=== PATIENT | male | born 1960 | race Caucasian/White ===

== ENCOUNTER 2020-07-02 13:11 | Emergency (ER) | payer SELFPAY ==
[2020-07-02] VITALS (16 sets, daily range): BP systolic 99–140; BP diastolic 68–100; PULSE 88–112; RESP 15–20; TEMP 36.6–37.4; O2SAT 99–100
--- NOTE | ~2020-07-02 | CT_ITS ---
EXAMINATION: CT thoracic lumbar wo con DATE: 07/02/2020 14:42 INDICATION: Vertebral body fracture. TECHNIQUE: Computed tomography (CT) of the thoracic and lumbar spine was performed without intravenou s contrast. Automated exposure control and iterative reconstruction technique were employed. The dose -length product was 346.27 mGy-cm. COMPARISON: Chest 2 views 07/02/2020 FINDINGS: CT THORACIC SPINE: There is mild emphysema. There is mucous in right mainstem bronchus. There is 14 d egrees levoscoliosis of thoracic spine. There is kyphosis of thoracic spine. There is 2 mm retrolisth esis of C6 on C7. There is a burst fracture of T7 with 3/5 loss of height. There is a compression fra cture of T9 without significant height loss. There is mild chronic anterior wedging of vertebral body . There is a compression fracture of T12 superior endplate with up to 1/5 loss of height. There is no central canal stenosis. There is multilevel facet joint osteoarthritis, moderate upper thoracic spin e. There is mild neural foraminal stenosis on the right at T3-T4 and on the left at T1-T2, T2-T3, T3- T4, and T4-T5. CT LUMBAR SPINE: There is 6 degrees dextrocurvature of lumbar spine. There is a burst fracture of L2 superior endplate with 1/5 loss of height. Intervertebral disc heights are normal. The following disc levels are specifically discussed: L1-L2: The disc does not extend beyond the endplate margin. There is mild bilateral facet joint osteo arthritis. There is no neural foraminal stenosis. There is no central canal stenosis. L2-L3: The disc is mildly bulging. There is mild bilateral facet joint osteoarthritis. There is mild bilateral neural foraminal stenosis. There is no central canal stenosis. L3-L4: The disc is bulging. There is severe bilateral facet joint osteoarthritis. There is mild bilat eral neural foraminal stenosis. There is mild central canal stenosis. L4-L5: The disc does not extend beyond the endplate margin. There is severe right and moderate left f acet joint osteoarthritis. There is no neural foraminal stenosis. There is no central canal stenosis. L5-S1: The disc does not extend beyond the endplate margin. There is mild bilateral facet joint osteo arthritis. There is no neural foraminal stenosis. There is no central canal stenosis. IMPRESSION: 1. T7 burst fracture, likely subacute. 2. T9 compression fracture, likely acute or subacute. 3. Age-indeterminate T12 compression fracture. 4. L2 burst fracture, likely acute or subacute. 5. Mild thoracic and lumbar spondylosis. 6. Thoracic levoscoliosis and kyphosis. Reviewed, dictated and finalized at location B.
--- NOTE | ~2020-07-02 | CT_ITS ---
EXAMINATION: CT brain wo con DATE: 07/02/2020 13:49 INDICATION: Dizziness. Weakness. TECHNIQUE: Computed tomography (CT) of the head was performed without intravenous contrast. The mA wa s adjusted according to patient size. Iterative reconstruction technique was employed. The dose-lengt h product was 681.00 mGy-cm. COMPARISON: None FINDINGS: There is fluid that is hypodense to barlow matter overlying the cerebral hemispheres bilatera lly measuring up to 5 mm in thickness on both sides, consistent with chronic subdural hematomas. Ther e is no intracranial hemorrhage, acute infarction, or abnormal intracranial mass lesion. There are sc attered areas of low attenuation in the cerebral white matter, which is within normal limits for the patient's age. The ventricles are normal in size. There is mild mucosal thickening in the paranasal s inuses. The orbits are normal. The mastoid air cells are normal. IMPRESSION: 1. Chronic bilateral subdural hematomas. Reviewed, dictated and finalized at location B.
--- NOTE | ~2020-07-02 | XR_ITS ---
EXAMINATION: XR chest 2V DATE: 07/02/2020 13:53 INDICATION: Cough. Weakness. TECHNIQUE: Frontal and lateral views of the chest were obtained. COMPARISON: None. FINDINGS: There is mild scarring at the lung apices. There is mild atelectasis in left lower lung zon e. No pleural effusion or pneumothorax. The heart size is normal. There is a compression fracture of L2. There is a burst fracture of T7. IMPRESSION: 1. Mild atelectasis in left lower lung zone and mild scarring at the lung apices. 2. Age-indeterminate compression fracture of L2 and burst fracture of T7. Reviewed, dictated and finalized at location B. IMPRESSION: 1. Mild atelectasis in left lower lung zone and mild scarring at the lung apice s. 2. Age-indeterminate compression fracture of L2 and burst fracture of T7.
--- NOTE | 2020-07-02 13:17 | ED.DIZZY ---
HPI - Dizziness General Chief Complaint: Dizziness Stated Complaint: dizziness Time Seen by Provider: 07/02/20 13:17 Related Data Allergies Allergy/AdvReac Type Severity Reaction Status Date / Time No Known Allergies Allergy Unverified 11/07/12 12:03
--- NOTE | 2020-07-02 13:23 | ED.DIZZY ---
HPI - Dizziness General Chief Complaint: Dizziness Stated Complaint: dizziness Time Seen by Provider: 07/02/20 13:17 Source: patient Mode of arrival: ambulatory Limitations: no limitations History of Present Illness HPI Narrative: Patient is a 60-year-old male who presents for evaluation of weakness and dizziness with standing. Patient states that he has been falling frequently when he stands up. He reports dizziness only with standing. He denies any current vision changes, dizziness with laying still, headache, nausea or vomiting. Patient denies history of any medical problems. He states that he typically does not eat or drink much. Because of the dizziness he has not been ambulating as much. He does report decreased oral intake. He is on any anticoagulation. Patient has extensive bruising to the bilateral upper extremities which I question him on, patient states he is having mild back pain. Patient states he has been falling daily for many days. Patient reports mild cough without shortness of breath. Denies chest pain. Pt denies history of dark or tarry stools. He denies alcohol use recently. He states he used to drink heavily in the past. Pt states he has not seen a physician in 20 years. Related Data Allergies Allergy/AdvReac Type Severity Reaction Status Date / Time No Known Allergies Allergy Unverified 11/07/12 12:03 Review of Systems Review of Systems: Narrative: CONSTITUTIONAL: Denies fever, chills, or sweats. EYES: Denies visual changes, redness, or discharge. ENT: Denies rhinorrhea, congestion, sore throat, or otalgia. CARDIOVASCULAR: Denies chest pain, palpitations, or edema. RESPIRATORY: Reports mild cough without shortness of breath GASTROINTESTINAL: Denies abdominal pain, nausea, vomiting, or diarrhea. GENITOURINARY: Denies dysuria or hematuria. SKIN: Denies rash or itching. MUSCULOSKELETAL: Reports mild back pain without other joint pain, or myalgia. NEUROLOGIC: Denies headache, numbness, reports feeling diffusely weak PMFSH Social History Social History (Updated 07/02/20 @ 13:35 by Ernestine Torres MD) Smoking status: Current every day smoker Tobacco type: cigarettes Alcohol intake: never Substance use: never Living arrangements: with family Gender identity (if verbalized by the patient): Male Exam Narrative: Exam Narrative: GENERAL: Awake, alert, conversant HEAD: Normocephalic, atraumatic. EYES: PERRLA and EOMI. ENT: Nares clear, no rhinorrhea or epistaxis. Mucous membranes dry NECK: Supple. CHEST: No respiratory distress, breathing even and non labored HEART: Tachycardic rate, sinus rhythm ABDOMEN:Non distended, non tender EXTREMITIES: Normal range of motion. No edema. SKIN: Pale, dry, no rash. NEURO:No focal deficits. Alert and oriented x3. Finger to nose intact bilaterally. EOMs intact without nystagmus. No facial droop/asymmetry noted bilaterally. Grimace intact. Intact sensation in face. Hearing intact bilaterally. Shoulder shrug intact. Strength 5/5 bilateral upper extremities. Strength 5/5 bilateral lower extremities. Reflexes 2+ patellar. Heel to sullivan intact bilaterally. Ambulatory exam deferred. NIHSS 0. Course Vital Signs Vital signs: Vital Signs Temperature 36.8 C 07/02/20 13:17 Pulse Rate 112 H 07/02/20 13:17 Respiratory Rate 15 07/02/20 13:17 Blood Pressure 100/76 07/02/20 13:17 Pulse Oximetry 100 07/02/20 13:17 Temperature 37.1 C 07/02/20 18:45 Pulse Rate 96 07/02/20 18:45 Respiratory Rate 16 07/02/20 18:45 Blood Pressure 121/86 07/02/20 18:45 Pulse Oximetry 100 07/02/20 18:45 MDM - Dizziness MDM Narrative Medical decision making narrative: Patient presented for evaluation of lightheadedness and dizziness with standing. Patient is quite chronically ill-appearing, very thin and dehydrated appearing. No neurological deficits on exam. Patient with extensive, scattered bruising to the bilateral upper extremities. Patient with
[2020-07-02] MEDS: SODIUM CHLORIDE 0.9% IV 1,000 ML 999 ML IV CONT (13:42)
[2020-07-02 14:19] LABS: Basophils Percent Auto 0.3 % (0.2-1.2); Eosinophils Percent Auto 0.1 % (0-4.4); Immature Granulocyte Absolute 0.08 K/mm3 (0.00-0.031); Lymphocytes Absolute Auto 0.44 K/mm3 (0.9-3.2); Lymphocytes Percent Auto 5.6 % (18.3-44.2); Mean Corpuscular Hemoglobin 34.7 pg (26-34); Mean Platelet Volume 9.5 fl (7.4-10.4); Monocytes Absolute Auto 0.5 K/mm3 (0.1-0.6); Monocytes Percent Auto 6.1 % (2.6-8.5); Neutrophils Absolute Auto 6.9 K/mm3 (1.3-6.7); Neutrophils Percent Auto 86.9 % (45.5-73.1); Platelet Count Result 214 k/mm3 (150-375); Red Blood Count 1.96 M/mm3 (4.6-6.20); Red Cell Distribution Width 14.9 % (11.5-14.5); White Blood Count 7.9 K/mm3 (4.5-10.0)
[2020-07-02 14:31] LABS: INR 0.9; Partial Thromboplastin Time 24.8 SECONDS (22.3-36.8); Prothrombin Time 12.5 Seconds (11.1-14.7)
[2020-07-02 14:34] LABS: Hemoglobin 6.8 g/dL (14.0-18.0)
[2020-07-02 14:38] LABS: NT Pro B Type Natriuretic Pept 1260 PG/ML (5-100)
[2020-07-02 14:43] LABS: Alanine Aminotransferase 21 U/L (4-50); Albumin Level 3.5 g/dL (3.5-5.1); Alkaline Phosphatase 102 U/L (38-126); Anion Gap 13 mmol/L (8-16); Aspartate Amino Transferase 41 U/L (17-59); Bilirubin,Total 2.2 mg/dL (0.2-1.3); Blood Urea Nitrogen 25 mg/dL (9-20); Calcium 7.9 mg/dL (8.4-10.2); Carbon Dioxide 25 mmol/L (22-30); Chloride 96 mmol/L (98-107); Estimated CRCL calculation 46 ml/min; Estimated Glomerular Filt Rate > 60; Glucose 97 mg/dL (75-110); Potassium 2.7 mmol/L (3.4-5.0); Sodium 134 mmol/L (137-145)
[2020-07-02] MEDS: THIAMINE HCL INJ 100 MG, FOLIC ACID INJ 1 MG, MULTIVITAMINS-12 INJ VIAL 1 5 ML, MULTIVI... IV CONT (14:47)
--- NOTE | 2020-07-02 15:00 | ECG_ITS ---
Measurements Intervals [place] Rate: 115 P: [place]: 0 QRS: -83 QRSD: 90 T: 90 QT: 322 QTc: 447 Interpretive Statements ATRIAL FIBRILLATION WITH RAPID VENTRICULAR RESPONSE LEFT AXIS DEVIATION NONSPECIFIC ST & T-WAVE ABNORMALITY- ANTEROLAT/HIGH LAT LEADS BASELINE ARTIFACT- I, II, III, AVR, AVL, AVF, V1-V6 ABNORMAL ECG Electronically Signed On 07-03-2020 7:12:08 CDT by Gaetano Calero D.O.
[2020-07-02] MEDS: POTASSIUM CHLORIDE 20 MEQ TABLET 40 MEQ PO (15:08)
--- NOTE | 2020-07-02 15:10 | PC.NURSE ---
Informed blood consent signed by patient with this RN as witness. Consent form placed on patient chart.
[2020-07-02 15:11] LABS: Lactic Acid Reflex 1.5 mmol/L (0.7-2.1)
[2020-07-02 16:50] LABS: Add Urine Microscopic? YES; Appearance Urine Cloudy (Clear); Bacteria Urine Trace /hpf; Bilirubin Urine Negative (Negative); Blood Urine Negative (Negative); Color Urine Amber (Yellow); Glucose Urine UA Negative (Negative); Ketones Urine 1+ mg/dL (Negative); Leukocyte Esterase Ur Negative LEU/UL (Negative); Nitrate Urine Negative (Negative); Protein Urine 1+ mg/dL (Negative); RBC Urine 0-2 /hpf (0-2); Specific Grav Ur 1.019 (1.001-1.035); WBC Urine 0-3 /hpf
--- NOTE | 2020-07-02 17:15 | PC.NURSE ---
Kamari from [facility] called to ask questions in regards to pt, States we do not have a bed at this time, but will call back when we do.
[2020-07-02] MEDS: TUBING, BLOOD PLUM PUMP TUBING 1 EACH XX ×2 (17:33→23:12)
[2020-07-02] MEDS: SODIUM CHLORIDE 0.9% IV 250 ML 30 ML IV CONT ×2 (17:33→23:12)
[2020-07-02 18:29] LABS: HIV 1/2 Ab P24 Ag Result Negative (Negative)
--- NOTE | 2020-07-02 18:50 | PC.NURSE ---
contacted [facility] and [facility] to transfer pt. sal accepted eta [id number]
[2020-07-02 21:45] LABS: Anion Gap 0 mmol/L (8-16); Blood Urea Nitrogen 22 mg/dL (9-20); Calcium 6.6 mg/dL (8.4-10.2); Carbon Dioxide 27 mmol/L (22-30); Chloride 99 mmol/L (98-107); Estimated CRCL calculation 62 ml/min; Estimated Glomerular Filt Rate > 60; Glucose 326 mg/dL (75-110); Potassium 6.8 mmol/L (3.4-5.0); Sodium 126 mmol/L (137-145)
[2020-07-02 21:54] LABS: Troponin I 0.052 ng/mL (0.000-0.034)
[2020-07-02 23:16] LABS: Hematocrit 22.7 % (42.0-52.0); Hemoglobin 7.7 g/dL (14.0-18.0)
[2020-07-02 23:40] LABS: Anion Gap 4 mmol/L (8-16); Blood Urea Nitrogen 24 mg/dL (9-20); Calcium 7.4 mg/dL (8.4-10.2); Carbon Dioxide 27 mmol/L (22-30); Chloride 101 mmol/L (98-107); Estimated CRCL calculation 62 ml/min; Estimated Glomerular Filt Rate > 60; Glucose 124 mg/dL (75-110); Potassium 2.8 mmol/L (3.4-5.0); Sodium 132 mmol/L (137-145)
[2020-07-03 00:55] VITALS: BP 145/104; PULSE 90; RESP 20; TEMP 36.6; O2SAT 100
== END 2020-07-03 02:19 | disposition short-term general hospital (02) ==
PROVIDERS: General Practice; Emergency Provider Emergency Medicine
DX: I62.03 Nontraumatic chronic subdural hemorrhage (principal); S22.061A Stable burst fracture of T7-T8 vertebra, initial encounter for closed fracture; S22.078A Other fracture of T9-T10 vertebra, initial encounter for closed fracture; S32.021A Stable burst fracture of second lumbar vertebra, initial encounter for closed fracture; D64.89 Other specified anemias; F17.210 Nicotine dependence, cigarettes, uncomplicated; M47.814 Spondylosis without myelopathy or radiculopathy, thoracic region; M47.816 Spondylosis without myelopathy or radiculopathy, lumbar region; E87.6 Hypokalemia; W18.39XA Other fall on same level, initial encounter
CPT/HCPCS: 36415; 36430; 70450; 71046; 72128; 72131; 80048; 80053; 81001; 83605; 83880; 84443; 84484; 85014; 85018; 85025; 85610; 85730; 86703; 86850; 86900; 86901; 86923; 87040; 93005; 96361; 96365; 96366; 96367; 99291; A9270; G0432; J3411; J3475; J3480; J7030; J7050; J7121; P9016

== ENCOUNTER 2021-12-06 20:56 | Inpatient (IN) | payer OTHER, SELFPAY ==
[2021-12-06] VITALS (17 sets, daily range): BP systolic 93–148; BP diastolic 70–132; PULSE 83–103; RESP 14–22; TEMP 36.2; O2SAT 100
--- NOTE | ~2021-12-06 | XR_ITS ---
EXAMINATION: XR chest PICC line DATE: 12/10/2021 11:47 INDICATION: Central line placement. TECHNIQUE: A single frontal view of the chest was obtained. COMPARISON: Chest single view at 4:11 AM FINDINGS: The patient is rotated to his right. There are moderate-sized pleural effusions. There are airspace opacities in all right lung zones and in left mid and lower lung zones with a perihilar and basilar predominance. No pneumothorax. The heart size is normal. A left upper extremity peripherally inserted central venous catheter (PICC) is seen with tip at the superior cavoatrial junction. IMPRESSION: 1. PICC tip at superior cavoatrial junction. 2. Stable moderate-sized pleural effusions. 3. Stable diffuse lung disease, consistent with pulmonary edema versus pneumonia. Reviewed, dictated and finalized at location A. IMPRESSION: 1. PICC tip at superior cavoatrial junction. 2. Stable moderate-sized pleural effusions. 3. Stable diffuse lung disease, consistent with pulmonary edema versus pneumoni a.
--- NOTE | ~2021-12-06 | XR_ITS ---
EXAMINATION: XR chest 1V portable DATE: 12/18/2021 05:47 INDICATION: Acute respiratory failure. Pneumonia. TECHNIQUE: frontal view of the chest was obtained. COMPARISON: Chest radiograph dated 12/17/2021 FINDINGS: Endotracheal tube tip 1.3 cm above the kimi. Nasogastric tube tip in proximal side port in the body of the stomach. Left upper extremity peripherally inserted central venous catheter (PICC) tip at th e cephalad superior vena cava. No significant change in diffuse bilateral airspace opacity sparing the apices which is consistent wi th small bilateral pleural effusions and superimposed pulmonary edema, pneumonia, ARDS or some combin ation thereof. The cardiomediastinal silhouette is normal. Visualized bones and soft tissues are unre markable. IMPRESSION: 1. Unchanged bilateral lung disease consistent with pulmonary edema, pneumonia, ARDS or some combinat ion thereof. 2. Small bilateral pleural effusions. Reviewed, dictated and finalized at location A. IMPRESSION: 1. Unchanged bilateral lung disease consistent with pulmonary edema, pneumonia, ARDS or some combination thereof. 2. Small bilateral pleural effusions.
--- NOTE | ~2021-12-06 | CT_ITS ---
EXAMINATION: CT brain wo con DATE: 12/17/2021 10:54 INDICATION: Altered mental status. TECHNIQUE: Computed tomography (CT) of the head was performed without intravenous contrast. The mA wa s adjusted according to patient size. Iterative reconstruction technique was employed. The dose-lengt h product was 681.00 mGy-cm. COMPARISON: Head CT 12/06/2021 FINDINGS: There are scattered areas of low attenuation in the cerebral white matter. There is no intr acranial hemorrhage, acute infarction, or abnormal intracranial mass lesion. The ventricles are jean l in size. The orbits are normal. There is mucosal thickening in the paranasal sinuses. There are sma ll bilateral mastoid effusions. IMPRESSION: 1. Stable moderate nonspecific cerebral white matter disease, which likely represents chronic small v essel ischemic disease. Reviewed, dictated and finalized at location B. IMPRESSION: 1. Stable moderate nonspecific cerebral white matter disease, which likely repr esents chronic small vessel ischemic disease.
--- NOTE | ~2021-12-06 | CT_ITS ---
EXAMINATION: CT chest abdomen pelvis wo con DATE: 12/17/2021 10:54 INDICATION: Shortness of breath. Epigastric abdominal pain. TECHNIQUE: Computed tomography (CT) of the chest, abdomen, and pelvis was performed without intraveno us contrast. Automated exposure control and iterative reconstruction technique were employed. The dos e-length product was 542.37 mGy-cm. COMPARISON: CT chest, abdomen, and pelvis 12/13/2021 FINDINGS: CHEST CT: There is mild emphysema. There are moderate-sized pleural effusions. There is dependent atelectasis b ilaterally. There are diffuse airspace and groundglass opacities with areas of septal thickening in t he lungs bilaterally. The endotracheal tube tip is in expected position above the kimi. The nasogas tric tube tip is in the stomach. The heart size is normal. There is a small pericardial effusion. The re are coronary artery calcifications. A left upper extremity peripherally inserted central venous ca theter (PICC) is seen with tip in the superior vena cava. There are bridging endplate osteophytes at multiple levels in the spine, consistent with diffuse idiopathic skeletal hyperostosis (DISH). There are chronic compression fractures of T7, T11, and T12. ABDOMEN/PELVIS CT: There is diffuse hepatic steatosis. There is contrast in the gallbladder, which is normal in size. Th ere is fat stranding around the pancreas, consistent with acute interstitial pancreatitis. The spleen , adrenal glands, and kidneys are normal. The bladder is decompressed by a Marks catheter. There are no dilated loops of bowel. The appendix is not well visualized. There is a small volume of ascites. T here are no pathologically enlarged lymph nodes. There is a chronic compression fracture of L2. IMPRESSION: 1. Stable diffuse lung disease, consistent with pulmonary edema versus pneumonia versus acute respira tory distress syndrome (ARDS). 2. Stable moderate-sized pleural effusions. 3. Worsened small volume of ascites. 4. Stable acute interstitial pancreatitis. Reviewed, dictated and finalized at location B. IMPRESSION: 1. Stable diffuse lung disease, consistent with pulmonary edema versus pneumoni a versus acute respiratory distress syndrome (ARDS). 2. Stable moderate-sized pleural effusions. 3. Worsened small volume of ascites. 4. Stable acute interstitial pancreatitis.
--- NOTE | ~2021-12-06 | US_ITS ---
EXAMINATION: US abdomen limited DATE: 12/13/2021 13:31 INDICATION: Pancreatitis, elevated bilirubin TECHNIQUE: Multiple grayscale and Doppler ultrasound images of the abdomen were obtained. COMPARISON: 12/08/2021 FINDINGS: The head and body of the pancreas are normal. The pancreatic tail is obscured by bowel gas. The liver demonstrates increased echogenicity, heterogenous echotexture, and decreased through trans mission. No surface nodularity. Normal hepatopetal flow in the main portal vein. The gallbladder is c ontracted. No gallstones are identified. The normal common bile duct measures 3 mm. There was no sono graphic Mishra sign. IMPRESSION: 1. Diffuse hepatic steatosis. Reviewed, dictated and finalized at location A.
--- NOTE | ~2021-12-06 | XR_ITS ---
EXAMINATION: XR chest 1V portable DATE: 12/10/2021 19:14 INDICATION: Decreased level of consciousness TECHNIQUE: frontal view of the chest was obtained. COMPARISON: Chest radiograph dated 12/10/2021 FINDINGS: Gradient of dependent predominant opacities in the bilateral mid and lower lung zones consistent with posterior layering moderate-sized pleural effusions with associated atelectasis and/or pneumonia. No pneumothorax. The cardiomediastinal silhouette is normal. Left upper extremity peripherally inserted central venous catheter (PICC) tip at the mid superior vena cava. IMPRESSION: 1. Unchanged moderate size bilateral pleural effusions with associated atelectasis an/or pneumonia. Reviewed, dictated and finalized at location A. IMPRESSION: 1. Unchanged moderate size bilateral pleural effusions with associated atelecta sis an/or pneumonia.
--- NOTE | ~2021-12-06 | US_ITS ---
US abdomen limited INDICATION: Pancreatitis. PROCEDURE: Realtime right upper abdominal ultrasound. COMPARISON: CT dated 12/06/2021 FINDINGS: Liver echotexture is increased, consistent with fatty infiltration. Liver echotexture is n ormal without focal mass or intrahepatic biliary dilatation. There is normal directional flow in the portal vein. There is gallbladder sludge. Possible mild gallbladder wall thickening. There is a small amount of as cites. Common bile duct measures 5 mm. No sonographic Mishra's sign. IMPRESSION: 1: Gallbladder sludge with mild gallbladder wall thickening. 2: Ascites. 3: Hepatic steatosis. Reviewed, dictated and finalized at location A.
--- NOTE | ~2021-12-06 | US_ITS ---
EXAMINATION: US thoracentesis DATE: 12/18/2021 16:46 INDICATION: pleural effusion TECHNIQUE: The procedure and its risks, benefits, and alternatives were discussed with the patient's son, who provided consent. The skin was prepped and draped in sterile fashion. 1% lidocaine was used for local anesthesia. Under ultrasound guidance, a 5 Fr catheter with trochar was advanced into the r ight pleural effusion. Fluid was aspirated. The catheter was removed, and a dressing was applied. The re were no immediate complications. FINDINGS: Ultrasound images demonstrate a right pleural effusion and the catheter within the fluid. IMPRESSION: 1. Successful ultrasound-guided thoracentesis yielding 620 mL of lev-colored fluid. Reviewed, dictated and finalized at location A.
--- NOTE | ~2021-12-06 | XR_ITS ---
EXAMINATION: XR chest 1V portable DATE: 12/09/2021 03:55 INDICATION: Shortness of breath. TECHNIQUE: A single frontal view of the chest was obtained. COMPARISON: Chest single view 12/06/2021, CT abdomen and pelvis 12/06/2021 FINDINGS: There are small pleural effusions. There are airspace and interstitial opacities in the mid and lower lung zones. No pneumothorax. The heart size is normal. IMPRESSION: 1. Worsened interstitial and airspace opacities in the mid and lower lung zones, consistent with pulm onary edema versus pneumonia. 2. New small pleural effusions. Reviewed, dictated and finalized at location A. IMPRESSION: 1. Worsened interstitial and airspace opacities in the mid and lower lung zones , consistent with pulmonary edema versus pneumonia. 2. New small pleural effusions.
--- NOTE | ~2021-12-06 | XR_ITS ---
EXAMINATION: XR chest 1V portable DATE: 12/14/2021 06:05 INDICATION: Acute respiratory failure. TECHNIQUE: A single frontal view of the chest was obtained. COMPARISON: Chest single view 12/13/2021 FINDINGS: There are small pleural effusions. There are airspace and interstitial opacities in all yaima g zones bilaterally. No pneumothorax. The heart size is normal. The endotracheal tube tip is 4.0 cm a martin the kimi. The nasogastric tube tip is in the stomach. A left upper extremity peripherally inse rted central venous catheter (PICC) is seen with tip in the superior vena cava. IMPRESSION: 1. Stable diffuse lung disease, consistent with pulmonary edema versus pneumonia versus acute respira tory distress syndrome (ARDS). 2. Stable small pleural effusions. Reviewed, dictated and finalized at location A. IMPRESSION: 1. Stable diffuse lung disease, consistent with pulmonary edema versus pneumoni a versus acute respiratory distress syndrome (ARDS). 2. Stable small pleural effusions.
--- NOTE | ~2021-12-06 | XR_ITS ---
EXAMINATION: XR chest 1V portable DATE: 12/17/2021 05:45 INDICATION: Acute respiratory failure. Pneumonia. TECHNIQUE: frontal view of the chest was obtained. COMPARISON: Chest radiograph dated 12/16/2021 FINDINGS: Endotracheal tube tip 3.1 cm above the kimi. Nasogastric tip in proximal side port in the body of t he stomach. Left upper extremity peripherally inserted central venous catheter (PICC) tip at the mid superior vena cava. Persistent patchy bilateral airspace opacities relatively sparing the apices and with interval increa se at the right lower lung zone. Small bilateral pleural effusions. No pneumothorax. The cardiomedias tinal silhouette is normal. IMPRESSION: 1. Unchanged small bilateral pleural effusions. 2. Persistent in bilateral patchy airspace opacities with some interval increase in the right lower l nilay zone which could represent pulmonary edema, pneumonia, ARDS or some combination thereof. Reviewed, dictated and finalized at location A. IMPRESSION: 1. Unchanged small bilateral pleural effusions. 2. Persistent in bilateral patchy airspace opacities with some interval increas e in the right lower lung zone which could represent pulmonary edema, pneumonia , ARDS or some combination thereof.
--- NOTE | ~2021-12-06 | XR_ITS ---
EXAMINATION: XR chest 1V portable DATE: 12/16/2021 05:35 INDICATION: Acute respiratory failure. Pneumonia. TECHNIQUE: frontal view of the chest was obtained. COMPARISON: Chest radiograph dated 12/15/2021 at 5:46 AM FINDINGS: Endotracheal tube tip 2.2 cm above the kimi. Nasogastric tube extends below the left hemidiaphragm with distal tip collimated off the study. Left upper extremity peripherally inserted central venous catheter (PICC) tip at the cephalad superior vena cava. Interval improvement in aeration in the bilateral lower lung zones. There are persistent patchy airsp edda opacities in the bilateral mid and lower lung zones. Interval decrease in small bilateral pleural effusions. No pneumothorax. The cardiomediastinal silhouette is normal. IMPRESSION: 1. Decreasing small bilateral pleural effusions with associated basilar atelectasis. 2. Patchy airspace opacities in the bilateral mid and lower lung zones which could represent pulmonar y edema, pneumonia, ARDS or some combination thereof. Reviewed, dictated and finalized at location A. IMPRESSION: 1. Decreasing small bilateral pleural effusions with associated basilar atelect asis. 2. Patchy airspace opacities in the bilateral mid and lower lung zones which co uld represent pulmonary edema, pneumonia, ARDS or some combination thereof.
--- NOTE | ~2021-12-06 | CT_ITS ---
EXAMINATION: CTA chest PE abdomen pel DATE: 12/13/2021 15:10 INDICATION: Ascites. Septic shock. TECHNIQUE: Computed tomography angiography (CTA) of the chest was performed with 100 mL Omnipaque-350 intravenous contrast timed to evaluate the pulmonary arteries. Coronal maximum intensity projection 3D-reconstructions were created by the technologist. Computed tomography (CT) of the abdomen and pelv is was performed with intravenous contrast. Automated exposure control and iterative reconstruction t echnique were employed. The dose-length product was 604.12 mGy-cm. COMPARISON: CT abdomen and pelvis 12/06/2021 FINDINGS: CTA chest: There is mild emphysema. There are groundglass opacities, airspace opacities, and crazy pa ving in all lobes. There are moderate-sized pleural effusions. The heart size is normal. There are co ronary artery calcifications. No pericardial effusion. There is no pulmonary embolus. There are chron ic compression fractures of T7, T11, and T12. In T7. There are bridging endplate osteophytes at multi ple levels in the spine, consistent with diffuse idiopathic skeletal hyperostosis (DISH). CT abdomen and pelvis: The nasogastric tube tip is in the stomach. There is diffuse hepatic steatosis . The gallbladder is contracted. Gallbladder wall thickening is likely secondary to interstitial karol a. The spleen and adrenal glands are normal. There is fat stranding around the pancreas, consistent w ith pancreatitis. The kidneys are normal. There are no dilated loops of bowel. There are no pathologi mauricio enlarged lymph nodes. There is a small volume of ascites. There is a ventral hernia containing fat. There is dextroscoliosis of thoracic lumbar spine. There is a chronic compression fracture of L2 . There is mild lumbar spondylosis. IMPRESSION: 1. Diffuse lung disease, consistent with pulmonary edema versus pneumonia. 2. Moderate-sized pleural effusions. 3. No pulmonary embolus. 4. Acute interstitial pancreatitis. 5. Small volume of ascites. Reviewed, dictated and finalized at location A.
--- NOTE | ~2021-12-06 | XR_ITS ---
EXAMINATION: XR abdomen NG/feed tube insert INDICATION: OG placement TECHNIQUE: Portable AP KUB-NG at 1313 hours COMPARISON: None available FINDINGS: The OG tube is in the stomach. There are small pleural effusions. Diffuse lung disease is u nchanged. IMPRESSION: 1. OG tube in the stomach. Reviewed, dictated and finalized at location A. IMPRESSION: 1. OG tube in the stomach.
--- NOTE | ~2021-12-06 | XR_ITS ---
EXAMINATION: XR chest 1V portable DATE: 12/11/2021 05:57 INDICATION: Shortness of breath. TECHNIQUE: A single frontal view of the chest was obtained. COMPARISON: Chest single view 12/10/2021, CT abdomen and pelvis 12/06/2021 FINDINGS: There are airspace opacities in all lung zones bilaterally. There are small pleural effusio ns. No pneumothorax. The heart size is normal. A left upper extremity peripherally inserted central v enous catheter (PICC) is seen with tip in the superior vena cava. IMPRESSION: 1. Worsened diffuse lung disease, consistent with pulmonary edema versus pneumonia. 2. Stable small pleural effusions. Reviewed, dictated and finalized at location A. IMPRESSION: 1. Worsened diffuse lung disease, consistent with pulmonary edema versus pneumo eh. 2. Stable small pleural effusions.
--- NOTE | ~2021-12-06 | CT_ITS ---
EXAMINATION: CT cervical spine wo con DATE: 12/06/2021 21:31 INDICATION: Weakness and slurred speech TECHNIQUE: Computed tomography (CT) of the cervical spine was performed without intravenous contrast. The dose-length product was 126 mGy-cm. Automated exposure control and iterative reconstruction tech nique were employed. COMPARISON: None FINDINGS: Normal cervical lordosis. Moderate degenerative disc disease at C6-7. There is mild multile jevon uncinate hypertrophy. There is severe multilevel facet hypertrophy. Odontoid process within jean l limits. There is emphysema of the lung apices. No significant paraspinal soft tissue abnormality. N o evidence for perched facet. Craniovertebral junction is unremarkable. IMPRESSION: 1. No acute abnormality of the cervical spine. 2: Moderate cervical spondylosis. Reviewed, dictated and finalized at location A.
--- NOTE | ~2021-12-06 | XR_ITS ---
EXAMINATION: XR chest ET placement INDICATION: Endotracheal tube placement TECHNIQUE: Portable AP chest at 1313 hours COMPARISON: 1022 hours FINDINGS: An endotracheal tube is been inserted which ends 2.5 cm above the kimi. A nasogastric tub e has been inserted which ends in the stomach. There are diffuse opacities throughout all lung zones without significant change. There are small stable pleural effusions. There is no pneumothorax. A lef t upper extremity PICC ends with its tip in the proximal superior vena cava. The cardiomediastinal si lhouette is stable. IMPRESSION: 1. Endotracheal and nasogastric tubes inserted in adequate position. 2. Stable diffuse lung disease, consistent with pulmonary edema versus pneumonia. Reviewed, dictated and finalized at location A. IMPRESSION: 1. Endotracheal and nasogastric tubes inserted in adequate position. 2. Stable diffuse lung disease, consistent with pulmonary edema versus pneumoni a.
--- NOTE | ~2021-12-06 | US_ITS ---
EXAMINATION: US thoracentesis DATE: 12/19/2021 10:45 INDICATION: Left pleural effusion TECHNIQUE: The procedure and its risks and benefits were discussed with the patient's son. Potential risks discussed included bleeding, infection, and pneumothorax. The patient understood the risks and agreed to proceed. The skin was prepped and draped in sterile fashion. 1% lidocaine was used for loca l anesthesia. Under ultrasound guidance, a 5 Fr catheter with trochar was advanced into the left pleu ral effusion. Fluid was aspirated. The catheter was removed, and a dressing was applied. There were n o immediate complications. FINDINGS: Ultrasound images demonstrate a moderate-sized left pleural effusion and the catheter within the flui d. IMPRESSION: 1. Successful ultrasound-guided thoracentesis yielding 650 mL of bright yellow fluid. Reviewed, dictated and finalized at location A.
--- NOTE | ~2021-12-06 | XR_ITS ---
EXAMINATION: XR chest 1V portable DATE: 12/15/2021 07:02 INDICATION: Acute respiratory failure. Pneumonia. TECHNIQUE: frontal view of the chest was obtained. COMPARISON: Chest radiograph dated 12/14/2021 FINDINGS: Endotracheal tube tip 3.2 cm above the kimi. Nasogastric tube with distal tip in the body of the st omach and distal tip collimated off the study. Left upper extremity peripherally inserted central sabas ous catheter (PICC) tip at the mid superior vena cava. Bilateral perihilar predominant airspace opacities in both lungs. Small bilateral pleural effusions, right greater than left. No pneumothorax or definitive left pleural effusion. The cardiomediastinal s ilhouette is normal. IMPRESSION: 1. Bilateral lung disease which could represent pneumonia, pulmonary edema, ARDS or some combination thereof. 2. Small bilateral pleural effusions right greater than left. Reviewed, dictated and finalized at location A. IMPRESSION: 1. Bilateral lung disease which could represent pneumonia, pulmonary edema, CRISTY S or some combination thereof. 2. Small bilateral pleural effusions right greater than left.
--- NOTE | ~2021-12-06 | XR_ITS ---
EXAMINATION: XR chest 1V portable 12/06/2021 21:22 INDICATION: Shortness of breath PROCEDURE: AP portable chest COMPARISON: 07/02/2020 FINDINGS: The lungs are clear. The cardiomediastinal silhouette is within normal limits. There are no pleural effusions. There is no pneumothorax suspected. IMPRESSION: 1: NO ACUTE CARDIOPULMONARY DISEASE. Reviewed, dictated and finalized at location A.
--- NOTE | ~2021-12-06 | XR_ITS ---
EXAMINATION: XR chest 1V portable DATE: 12/10/2021 04:21 INDICATION: Shortness of breath. TECHNIQUE: A single frontal view of the chest was obtained. COMPARISON: Chest single view 12/09/2021, CT abdomen and pelvis 12/06/2021 FINDINGS: There are moderate-sized pleural effusions. There are airspace opacities in all lung zones with a perihilar and basilar predominance. No pneumothorax. The heart size is normal. IMPRESSION: 1. Worsened moderate-sized pleural effusions. 2. Worsened diffuse lung disease, consistent with pulmonary edema versus pneumonia. Reviewed, dictated and finalized at location A. IMPRESSION: 1. Worsened moderate-sized pleural effusions. 2. Worsened diffuse lung disease, consistent with pulmonary edema versus pneumo eh.
--- NOTE | ~2021-12-06 | XR_ITS ---
EXAMINATION: [id number]_CR Exam Date/Time: 12/18/2021 18:50 CDT HISTORY: Thoracentesis Comparison: 12/18/2021 at 5:20 AM. RESULT: Lines, tubes, and devices: Endotracheal tube now terminates 3.4 cm above the kimi. NG tube, in goo d position. Left upper extremity PICC terminating in the SVC. Lungs and pleura: Decreased graduated opacity in the right lower lung. Persistent somewhat patchy ar eas of reticular opacities bilaterally. Bilateral costophrenic angle blunting. Cardiomediastinal silhouette: Stable. Other: No acute osseous or upper abdominal finding. IMPRESSION: No radiographic evidence of pneumothorax. Unchanged pulmonary opacities which may represent edema, in fection, ARDS, or a combination. Bilateral pleural effusions, decreased on the right. Reviewed, dictated and finalized at location K. IMPRESSION: No radiographic evidence of pneumothorax. Unchanged pulmonary opacities which m ay represent edema, infection, ARDS, or a combination. Bilateral pleural effusi ons, decreased on the right.
--- NOTE | ~2021-12-06 | CT_ITS ---
EXAMINATION: CT abdomen pelvis w con DATE: 12/06/2021 23:07 INDICATION: Pancreatitis. Abdomen pain. Weakness. TECHNIQUE: Computed tomography (CT) of the abdomen and pelvis was performed with 100 cc Omnipaque 350 intravenous contrast. The dose-length product was 191.25 mGy-cm. Automated exposure control and iter ative reconstruction technique were employed. COMPARISON: None. FINDINGS: Heart size normal. There is thickening of the distal esophagus, consistent with esophagitis . No significant pleural or pericardial effusion. There is acute pancreatitis without evidence for ne crosis. Fatty infiltration of the liver. Mild atherosclerosis without aneurysm. Mild thickening of th e gastric antrum and proximal duodenum, likely reactive. No lymphadenopathy. No free air. There are d egenerative changes of the hips. The spleen, adrenal glands and kidneys are unremarkable. Gallbladder is present. IMPRESSION: 1. Acute pancreatitis. Moderate surrounding fluid extending into the paracolic gutters. No evidence f or necrosis. 2: Thickening and enhancement of the distal esophagus, suspicious for esophagitis. Mild thickening of the gastric antrum and proximal duodenum, likely reactive secondary to adjacent pancreatitis. 3: Hepatic steatosis. Reviewed, dictated and finalized at location A. IMPRESSION: 1. Acute pancreatitis. Moderate surrounding fluid extending into the paracolic gutters. No evidence for necrosis. 2: Thickening and enhancement of the distal esophagus, suspicious for esophagit is. Mild thickening of the gastric antrum and proximal duodenum, likely reactiv e secondary to adjacent pancreatitis. 3: Hepatic steatosis.
--- NOTE | ~2021-12-06 | CT_ITS ---
EXAMINATION: CT brain wo con DATE: 12/06/2021 21:25 INDICATION: Weakness, slurred speech and altered mental status TECHNIQUE: Computed tomography (CT) of the abdomen and pelvis was performed without intravenous contr ast. The dose-length product was 681.00 mGy-cm. Automated exposure control and iterative reconstructi on technique were employed. COMPARISON: CT dated 07/02/2020. FINDINGS: Mild generalized atrophy. There are scattered mild periventricular and subcortical white ma tter changes, most likely related to small vessel ischemic disease (microangiopathy). No acute intrac ranial hemorrhage, infarction, mass or mass effect. There is mild mucosal thickening of the maxillary sinuses. No depressed skull fractures. Mastoids are pneumatized. IMPRESSION: 1. No acute intracranial abnormality. 2: Chronic age-related findings. Reviewed, dictated and finalized at location A.
--- NOTE | ~2021-12-06 | XR_ITS ---
XR chest 1V portable 12/13/2021 10:26 Indication: Increased oxygen needs. Tachypnea. Procedure: AP portable chest Comparison: Comparison to multiple prior studies sequentially, with oldest reviewed study dated 12/10. Findings: There has been progression of diffuse bilateral airspace disease. Moderate pleural effusion s. No pneumothorax. Stable cardiomediastinal silhouette. Left subclavian central line tip in the SVC. Impression: 1: Progression of diffuse bilateral airspace disease which may represent edema and/or pneumonia. 2: Moderate bilateral pleural effusions. Reviewed, dictated and finalized at location B. Impression: 1: Progression of diffuse bilateral airspace disease which may represent edema and/or pneumonia. 2: Moderate bilateral pleural effusions.
--- NOTE | ~2021-12-06 | XR_ITS ---
. EXAMINATION: [id number]_[id number]_CR DATE: 12/19/2021 13:23 INDICATION: Left pleural effusion status post thoracentesis. TECHNIQUE: A single frontal view of the chest was obtained. COMPARISON: Chest single view 12/18/2021, chest CT 12/17/2021 FINDINGS: There are airspace and interstitial opacities throughout the lungs bilaterally. No pleural effusion or pneumothorax. The heart size is normal. The endotracheal tube tip is 3.2 cm above the car nancy. A left upper extremity peripherally inserted central venous catheter (PICC) is seen with tip in the superior vena cava. The nasogastric tube tip is in the stomach. IMPRESSION: 1. Persistent diffuse lung disease, consistent with pneumonia versus pulmonary edema versus acute res piratory distress syndrome (ARDS). Reviewed, dictated and finalized at location A. IMPRESSION: 1. Persistent diffuse lung disease, consistent with pneumonia versus pulmonary edema versus acute respiratory distress syndrome (ARDS).
[2021-12-06 21:07] LABS: Glucose Point of Care 214 mg/dl (65-105)
--- NOTE | 2021-12-06 21:12 | ECG_ITS ---
Measurements Intervals [place] Rate: 110 P: [place]: 0 QRS: -86 QRSD: 95 T: 101 QT: 339 QTc: 459 Interpretive Statements ATRIAL FIBRILLATION WITH RAPID VENTRICULAR RESPONSE LEFT AXIS DEVIATION INCOMPLETE RIGHT BUNDLE BRANCH BLOCK POOR R WAVE PROGRESSION, ANTERIOR LEADS BASELINE ARTIFACT- I, II, III, AVR, AVL, AVF, V1-V6 ABNORMAL ECG COMPARED TO ECG 07/02/2020 13:13:32 NO SIGNIFICANT CHANGES Electronically Signed On 12-07-2021 8:48:23 CDT by Gaetano Calero D.O.
--- NOTE | 2021-12-06 21:16 | ED.GENADULT ---
HPI - General Adult General Chief complaint: Altered Mental Status <Shashank Lawson MD - Last Filed: 12/06/21 22:07> Stated complaint: HYPOGLYCEMIA, AMS <Shashank Lawson MD - Last Filed: 12/06/21 22:07> Time Seen by Provider: 12/06/21 21:01 <Shashank Lawson MD - Last Filed: 12/06/21 22:07> History of Present Illness HPI narrative: This is a 61-year-old male presenting to ED with altered mental status and low blood sugar. The patient was [place] up by EMS [place] a gas station earlier today acting confused. At that time is assumed he was drunk and he was taken back to his house. While he was at home he fell to the ground and was too weak to get up. EMS was then called he was brought to the emergency department. Patient has slurred speech, and his blood sugar was found to be 50. He was given some D10 with improvement his mental status. The patient says that he only drank a beer or so today. Patient says that he has not been feeling well for a day or 2. He denies chest pain, difficulty breathing, abdominal pain, melena or hematochezia. He says he has no history of liver cirrhosis. <Shashank Lawson MD - Last Filed: 12/06/21 22:07> Related Data Allergies/adverse reactions: Allergies Allergy/AdvReac Type Severity Reaction Status Date / Time No Known Allergies Allergy Unverified 11/07/12 12:03 <Shashank Lawson MD - Last Filed: 12/06/21 22:07> Review of Systems Review of Systems: CONSTITUTIONAL: Denies night sweats. EYES: No eye pain ENT: Denies rhinorrhea CARDIOVASCULAR: Denies palpitations RESPIRATORY: Denies hemoptysis GASTROINTESTINAL: Denies hematemesis GENITOURINARY: Denies hematuria. SKIN: Denies rash MUSCULOSKELETAL: Denies myalgia. NEUROLOGIC: Denies weakness. PSYCHIATRIC: Denies delusions <Shashank Lawson MD - Last Filed: 12/06/21 22:07> [facility] Social History Social History: Social History Smoking status: Current every day smoker Tobacco type: cigarettes Alcohol intake: never Substance use: never Gender identity (if verbalized by the patient): Male <Shashank Lawson MD - Last Filed: 12/06/21 22:07> Exam Narrative: APPEARANCE: No apparent distress. Head; atraumatic. EYES: PERRLA/EOMI, NOSE: Normal no drainage NECK: Supple, Trachea midline RESPIRATORY: CTAB, No increased work of breathing. CARDIOVASCULAR: S1S2 appreciated ABDOMINAL: Soft, nontender, nondistended, MUSCULOSKELETAL: No obvious deformities NEURO: Alert. Cranial nerves 2-12 grossly intact. Sensation light touch,cerebellar function intact for 4 extremities. Motor function is reduced and the patient is globally weak with no localizing symptoms. Gait exam was deferred. SKIN:: Warm, dry. Normal color PSYCHIATRIC: Normal affect <Shashank Lawson MD - Last Filed: 12/06/21 22:07> Course Course Emergency Course: 12/06 22:05 pm. Patient was signed out to Dr. Randolph pending completion of their workup. <Shashank Lawson MD - Last Filed: 12/06/21 22:07> Reevaluation(s) Reevaluation #1: Signed out to me pending labs and imaging. Labs notable for elevated lipase consistent with pancreatitis, though on evaluation patient is denying any abdominal pain, he just dates that he is thirsty. He also has an anion gap of 33, consistent with starvation ketosis, he is started on D5 LR and given multiple boluses of IV fluids with improvement of his mental status, blood pressure. CT obtained which confirms pancreatitis without any obvious necrosis or abscess. Patient admitted to the hospitalist, case discussed with ICU physician who feels he is stable for stepdown with IV fluids. <Isabel Randolph MD - Last Filed: 12/07/21 02:03> Vital Signs Vital signs: Vital Signs Pulse Rate 87 12/06/21 20:49 Respiratory Rate 21 H 12/06/21 20:49 Blood Pressure 108/77 12/06/21 20:49 Pulse Oximetry 100 12/06/21 20:49 Temperature 97.2 F L
--- NOTE | 2021-12-06 21:30 | PC.NURSE ---
Patient off unit to CT.
[2021-12-06 22:07] LABS: Hematocrit 39.3 % (42.0-52.0); Hemoglobin 12.7 g/dL (14.0-18.0); Mean Corpuscular HGB Conc 32.3 g/dl (32-36); Mean Corpuscular Hemoglobin 35.9 pg (26-34); Mean Platelet Volume 8.9 fl (7.4-10.4); Platelet Count Result 259 k/mm3 (150-375); Red Blood Count 3.54 M/mm3 (4.6-6.20); Red Cell Distribution Width 12.5 % (11.5-14.5); White Blood Count 12.4 K/mm3 (4.5-10.0)
[2021-12-06] MEDS: DEXTROSE 5%/LACTATED RINGERS 1,000 ML 100 ML IV CONT (22:09)
[2021-12-06 22:17] LABS: Ethanol 105 mg/dL (<10)
[2021-12-06 22:18] LABS: INR 1.2; Prothrombin Time 14.6 Seconds (11.1-14.7)
[2021-12-06 22:19] LABS: Alanine Aminotransferase 44 U/L (6-50); Albumin Level 3.6 g/dL (3.5-5.1); Alkaline Phosphatase 143 U/L (38-126); Anion Gap 33 mmol/L (8-16); Aspartate Amino Transferase 91 U/L (17-59); Bilirubin,Total 1.2 mg/dL (0.2-1.3); Blood Urea Nitrogen 12 mg/dL (9-20); Calcium 8.9 mg/dL (8.4-10.2); Carbon Dioxide 9 mmol/L (22-30); Chloride 94 mmol/L (98-107); Estimated CRCL calculation 39 ml/min; Estimated Glomerular Filt Rate 52; Glucose 143 mg/dL (65-110); Magnesium 1.6 mg/dL (1.6-2.3); Potassium 3.6 mmol/L (3.4-5.0); Sodium 136 mmol/L (137-145)
[2021-12-06 22:25] LABS: Total Cells Counted 100
[2021-12-06 22:26] LABS: Band Neutrophils Percent 1 % (0-6); Lymphocytes Absolute Manual 0.99 K/mm3 (1.1-4.5); Lymphocytes Percent Manual 8 % (18-44); Macrocytosis 1+ (NORMAL); Monocytes Absolute Manual 0.74 K/mm3 (0.1-0.90); Monocytes Percent Manual 6 % (3-9); Neutrophils Absolute Manual 10.66 K/mm3 (1.3-6.7); Neutrophils Percent Manual 85 % (46-73); Nucleated Red Blood Cells 1 %; Platelet Estimate Adequate (Adequate); Schistocytes None Seen (NORMAL)
[2021-12-06 22:28] LABS: Troponin I 0.014 ng/mL (0.000-0.034)
--- NOTE | 2021-12-06 22:30 | PC.NURSE ---
Attempted to collect urine sample. Patient unable to provide at this time.
[2021-12-06 22:33] LABS: Lipase 3641 U/L (23-300)
--- NOTE | 2021-12-06 23:00 | PC.NURSE ---
Patient off unit to CT.
--- NOTE | 2021-12-06 23:11 | PC.NURSE ---
Patient report given to RITIKA Fox. All questions answered and care of patient transferred.
--- NOTE | 2021-12-06 23:25 | PC.NURSE ---
Per verbal order from Dr. Randolph fluids running at a bolus of 999ml/h rather then at 125/h
[2021-12-06 23:34] LABS: Appearance Urine Clear (Clear); Bilirubin Urine 2+ (Negative); Color Urine Yellow (Yellow); Glucose Urine UA Negative (Negative); Ketones Urine 4+ mg/dL (Negative); Leukocyte Esterase Ur Negative LEU/UL (Negative); Nitrate Urine Negative (Negative); Protein Urine 1+ mg/dL (Negative); Specific Grav Ur 1.025 (1.001-1.035); pH Urine 5.5 (5.0-9.0)
[2021-12-06 23:48] LABS: RBC Urine 0-2 /hpf (0-2)
[2021-12-06 23:51] LABS: Barbiturate Screen Urine Negative (Negative); Benzodiazepines Screen Urine Negative (Negative)
[2021-12-07] VITALS (37 sets, daily range): BP systolic 63–106; BP diastolic 45–80; PULSE 90–120; RESP 15–28; TEMP 36.1–37.4; O2SAT 97–100; BMI 17.7
[2021-12-07 00:01] LABS: Add Urine Microscopic? YES; Blood Urine Trace-Intact (Negative)
[2021-12-07 00:03] LABS: Amphetamine Screen Urine Negative (Negative); Cannabinoid Screen Urine Negative (Negative); Cocaine Screen Urine Negative (Negative); Methadone Screen Urine Negative (Negative); Opiate Screen Urine Negative (Negative); Phencyclidine Screen Urine Negative (Negative)
[2021-12-07 00:32] LABS: Base Excess ABG -14.8 mEq/l (+/-2.0); Fractional Inspired Oxygen 21 %; HCO3 ABG 9.4 mEq/l (22.0-26.0); Oxygen Content ABG 16.9 %vol (16.0-22.0); Oxygen Saturation ABG 98.4 % (95.0-100.0); Oxyhemoglobin 97.2 % THb (90.0-100.0); PO2 ABG 129.6 mmHg (80.0-100.0); PO2 FiO2 Ratio Arterial Blood 6.17 %; Total Hemoglobin 12.2 g/dL (12.0-18.0); pH ABG 7.301 (7.350-7.450)
[2021-12-07 00:38] LABS: Alveolar/Arterial O2 Gradient 6.6 mmHg; PCO2 ABG 19.6 mmHg (35.0-45.0)
[2021-12-07 00:39] LABS: Device ROOM AIR; Modified Allen's Test Pass; Site Drawn RIGHT RADIAL
[2021-12-07] MEDS: LACTATED RINGERS 1,000 ML 999 ML IV CONT (01:28)
[2021-12-07 01:49] LABS: SARS-CoV-2 RNA PCR Negative
--- NOTE | 2021-12-07 02:50 | ADMGEN ---
This patient, Omega Hardwick, was admitted to IMU Room 212-01 at 0246. Patient/family oriented to hospital policies and general routines including ID bracelet, bed and alarms, visiting hours, pain management, procedures, bathroom and other care routines, personal items, smoking policy, room service/diet, and visiting hours. Information on how to activate the Rapid Response Team has been discussed. Patient/Family are encouraged to report perceived risks to care and to ask questions if they do not understand what they are told or what they should do.
[2021-12-07] MEDS: SODIUM CHLORIDE 0.9% IV 1,000 ML 999 ML IV CONT ×2 (03:14→08:57)
--- NOTE | 2021-12-07 03:17 | PM.IMHP ---
H&P: HPI History of Present Illness Date/Time: 12/07/21 03:17 Chief Complaint: Altered mental status Narrative: Patient is a 61-year-old male with a past medical history of alcohol abuse, anemia, hypertension who presented to the ED from home for falling and could not get up. Earlier in the day the patient was acting confused at the gas station. The patient stated that his had went down and could not get up which he thought he was going to fall however he laid on the floor and he began to help him. He went home little after that and fell again. Patient stated that he was on the floor for about 20 minutes to get to his phone to call 911. He states he has been very shaky and weak. Upon arrival EMS found his blood sugar to be in the 50s. He was also having slurred speech and was confused. He did get some D10 and his mental status improved. He denies any chest pain, shortness a breath, nausea, vomiting, diarrhea, fevers, sweats, chills, abdominal pain, bleeding. Patient did state that he has been lightheaded and dizzy for a while and he also has been constipated for a while and states his last BM was about 7 days ago. He states that he takes his medicine every day. Upon arrival ED was noted that the patient did have some hypotension with blood pressures getting as low as 80/68. Patient was given fluids in the ED and blood pressure has resolved. ABG indicates the patient 7 little metabolic acidosis with a CO2 of 19.6, and HC03 of 9.4 and a pH of 7.301. lipase also elevated at [address] of the abdomen and pelvis did show that the patient was having acute pancreatitis. Patient insists that he only drinks 1 beer a day most. However he did state that he did cut back a lot recently. Total protein is 6.0. Patient is being admitted to the hospitalist group as an inpatient Review of Systems Review of Systems: All systems reviewed & are unremarkable except as noted in HPI and below PMFSH Past Medical History Medical History Anemia Hypertension Neuropathy Family History Family History Father COPD (chronic obstructive pulmonary disease) Mother Heart disease Social History Social History Social History: patient lives at home by himself. He has 1 son and has not . Patient states that his son lives in [place]. Patient has no pets and wishes to be a full code at this time. Patient wants his friend Faraz to be his surrogate. Smoking packs per day: 0.5 Smoking cigarettes per day: 10.0 Years smoked: 30 Smoking pack-years: 15.00 Smoking status: Current every day smoker Tobacco type: cigarettes Alcohol intake: current Drinks per week: 7 Substance use: never Living arrangements: alone Occupation/Education: unemployed Additional occupation/education comments: Used to work at [employer] Gender identity (if verbalized by the patient): Male Spiritual care concerns: No Agree to blood products: Yes Meds Home Medications and Allergies Home Medications Medication Instructions Recorded Confirmed Type amlodipine 10 mg tablet 10 mg PO DAILY 12/07/21 12/07/21 History cholecalciferol (vitamin D3) 50 50 mcg PO DAILY 12/07/21 12/07/21 History mcg (2,000 unit) tablet ferrous sulfate 325 mg (65 mg 325 mg PO DAILY 12/07/21 12/07/21 History iron) tablet gabapentin 100 mg capsule 100 mg PO HS 12/07/21 12/07/21 History mirtazapine 7.5 mg tablet 7.5 mg PO HS 12/07/21 12/07/21 History potassium chloride 20 mEq 20 meq PO DAILY 12/07/21 12/07/21 History tablet,extended release(part/cryst) (Klor-Con M) sucralfate 1 gram tablet 1 g PO BID 12/07/21 12/07/21 History thiamine HCl (vitamin B1) 100 mg 100 mg PO DAILY 12/07/21 12/07/21 History tablet Allergies Allergy/AdvReac Type Severity Reaction Status Date / Time No Known Al
[2021-12-07] MEDS: DEXTROSE 5%/LACTATED RINGERS 1,000 ML 100 ML IV CONT (03:59)
[2021-12-07 04:36] LABS: Glucose Point of Care 39 mg/dl (65-105)
[2021-12-07 04:36] LABS: Glucose Point of Care 105 mg/dl (65-105)
--- NOTE | 2021-12-07 05:26 | PC.NURSE ---
Dick Garcia NP was notified for the sepsis bullseye at 0516.
[2021-12-07 05:58] LABS: Anion Gap 18 mmol/L (8-16); Blood Urea Nitrogen 15 mg/dL (9-20); Calcium 8.2 mg/dL (8.4-10.2); Carbon Dioxide 15 mmol/L (22-30); Chloride 97 mmol/L (98-107); Estimated CRCL calculation 54 ml/min; Estimated Glomerular Filt Rate > 60; Glucose 111 mg/dL (65-110); Magnesium 1.2 mg/dL (1.6-2.3); Potassium 4.3 mmol/L (3.4-5.0); Sodium 130 mmol/L (137-145)
--- NOTE | 2021-12-07 06:35 | ECG_ITS ---
Measurements Intervals [place] Rate: 106 P: 68 UT: 153 QRS: -87 QRSD: 78 T: 102 QT: 323 QTc: 429 Interpretive Statements SINUS TACHYCARDIA ATRIAL PREMATURE COMPLEX INCOMPLETE RIGHT BUNDLE BRANCH BLOCK POOR R WAVE PROGRESSION, CONSIDER ANTEROLATERAL INFARCT INFERIOR INFARCT, AGE INDETERMINATE BORDERLINE ST-T WAVE ABNORMALITY- ANT/HIGH LAT LEADS BASELINE ARTIFACT- I, II, AVR, AVL, V1-V3 ABNORMAL ECG COMPARED TO ECG 12/06/2021 23:24:59 SINUS TACHYCARDIA NOW PRESENT MYOCARDIAL INFARCT FINDING NOW PRESENT Electronically Signed On 12-07-2021 8:54:11 CDT by Gaetano Calero D.O.
[2021-12-07 07:54] LABS: Lactic Acid Reflex 4.5 mmol/L (0.7-2.0)
[2021-12-07 08:15] LABS: Basophils Percent Auto 0.1 % (0.2-1.2); Hematocrit 33.4 % (42.0-52.0); Hemoglobin 11.2 g/dL (14.0-18.0); Immature Granulocyte Percent A 0.9 % (0-0.5); Lymphocytes Absolute Auto 0.47 K/mm3 (0.9-3.2); Lymphocytes Percent Auto 4.4 % (18.3-44.2); Mean Corpuscular HGB Conc 33.5 g/dl (32-36); Mean Corpuscular Hemoglobin 35.7 pg (26-34); Mean Corpuscular Volume 106.4 fl (80-100); Mean Platelet Volume 9.2 fl (7.4-10.4); Monocytes Absolute Auto 0.8 K/mm3 (0.1-0.6); Monocytes Percent Auto 7.3 % (2.6-8.5); Neutrophils Absolute Auto 9.4 K/mm3 (1.3-6.7); Neutrophils Percent Auto 87.3 % (45.5-73.1); Platelet Count Result 200 k/mm3 (150-375); Red Blood Count 3.14 M/mm3 (4.6-6.20); Red Cell Distribution Width 12.1 % (11.5-14.5); White Blood Count 10.8 K/mm3 (4.5-10.0)
[2021-12-07 08:24] LABS: Anion Gap 15 mmol/L (8-16); Blood Urea Nitrogen 16 mg/dL (9-20); Calcium 8.3 mg/dL (8.4-10.2); Carbon Dioxide 20 mmol/L (22-30); Chloride 95 mmol/L (98-107); Estimated CRCL calculation 50 ml/min; Estimated Glomerular Filt Rate > 60; Glucose 126 mg/dL (65-110); Potassium 3.7 mmol/L (3.4-5.0); Sodium 130 mmol/L (137-145)
[2021-12-07] MEDS: MAGNESIUM SULF 4 GM/WATER100ML 4 GM/100 ML BAG IVPB (08:55)
[2021-12-07] MEDS: FOLIC ACID 1 MG TABLET PO (09:01)
[2021-12-07] MEDS: THIAMINE HCL 100 MG TABLET PO (09:01)
[2021-12-07] MEDS: SODIUM BICARBONATE 8.4% 150 MEQ in DEXTROSE 5% 1,000 ML 950 ML IV CONT (09:06)
[2021-12-07 10:39] LABS: Reflex Lactic Acid Yes or No Add Lactic
[2021-12-07 12:06] LABS: Lactic Acid 3.2 mmol/L (0.7-2.0)
[2021-12-07 12:37] LABS: Glucose Point of Care 176 mg/dl (65-105)
--- NOTE | 2021-12-07 14:28 | P.PNIM_ITS ---
Progress Note: A&P Assessment and Plan (1) Neuropathy: Code(s): G62.9 - Polyneuropathy, unspecified Status: Acute Assessment and Plan: * Continue home gabapentin * Trend symptoms (2) Acute pancreatitis: Code(s): K85.90 - Acute pancreatitis without necrosis or infection, unspecified Status: Acute Assessment and Plan: * Lipase elevated at 3641 * IV fluid resuscitation * CT indicates pancreatitis likely alcoholic related. LFTs are elevated as well. Will get gallbladder ultrasound * Trend labs, including lipase * NPO for bowel rest * WBC is 12.4 (3) Hypertension: Code(s): I10 - Essential (primary) hypertension Status: Acute Assessment and Plan: * BP is hypotensive and hence all his blood pressure medication will be held (4) Severe sepsis: Code(s): A41.9 - Sepsis, unspecified organism; R65.20 - Severe sepsis without septic shock Status: Acute Assessment and Plan: * Meets SIRS with tachycardiac, tachypnea, leukocytosis, acute confusion * Source of infection could be the pancreas, blood with hypoglycemia Patient endorses some cough. Treat for sepsis related to pneumonia with vancomycin and cefepime also add azithromycin for atypical coverage * Kidneys shows an CARLO * Glucose was noted to be low * Blood gas indicates metabolic acidosis * Appears the patient received 2L of fluids in the ED * IV fluid continued * Trend labs * Start on cefepime and Vanco until infection can be ruled out (5) Metabolic acidosis: Code(s): E87.2 - Acidosis Status: Acute Assessment and Plan: * ABG indicates metabolic acidosis * Glucose is low (6) Acute metabolic encephalopathy: Code(s): G93.41 - Metabolic encephalopathy Status: Acute Assessment and Plan: * Was noted to be confused * Could be from the hypoglycemia * Likely related to underlying sepsis Lactic acid is high as well * Head ct negative for acute findings (7) CARLO (acute kidney injury): Code(s): N17.9 - Acute kidney failure, unspecified Status: Acute Assessment and Plan: * Cr upon arrival was 1.40 * Baseline appears to be <1.0 * Since receiving IV fluids Cr back to baseline * Continue to trend labs * Avoid nephrotoxic medications (8) ETOH abuse: Code(s): F10.10 - Alcohol abuse, uncomplicated Status: Acute Assessment and Plan: * States he drinks one beer a day * CIWA protocol * Librium and valium on board [facility] * Trend score * adjust therapy as indicated Plan Hyponatremia mild Lactic acidosis: 4.5 continue to trend Hypomagnesemia replace and monitor Subjective Date/time seen: 12/07/21 14:28 Interval history: HPI:Patient is a 61-year-old male with a past medical history of alcohol abuse, anemia, hypertension who presented to the ED from home for falling and could not get up.? Earlier in the day the patient was acting confused at the gas station.? The patient stated that his had went down and could not get up which he thought he was going to fall however he laid on the floor and he began to help him.? He went home little after that and fell again.? Patient stated that he was on the floor for about 20 minutes to get to his phone to call 911.? He states he has been very shaky and weak.? Upon arrival EMS fou
--- NOTE | 2021-12-07 14:28 | PM.IMPN ---
Progress Note: A&P Assessment and Plan (1) Neuropathy: Code(s): G62.9 - Polyneuropathy, unspecified Status: Acute Assessment and Plan: Continue home gabapentin Trend symptoms (2) Acute pancreatitis: Code(s): K85.90 - Acute pancreatitis without necrosis or infection, unspecified Status: Acute Assessment and Plan: Lipase elevated at [address] indicates pancreatitis likely alcoholic related. LFTs are elevated as well. Will get gallbladder ultrasound Trend labs, including lipase NPO for bowel rest WBC is 12.4 (3) Hypertension: Code(s): I10 - Essential (primary) hypertension Status: Acute Assessment and Plan: BP is hypotensive and hence all his blood pressure medication will be held (4) Severe sepsis: Code(s): A41.9 - Sepsis, unspecified organism; R65.20 - Severe sepsis without septic shock Status: Acute Assessment and Plan: Meets SIRS with tachycardiac, tachypnea, leukocytosis, acute confusion Source of infection could be the pancreas, blood with hypoglycemia Patient endorses some cough. Treat for sepsis related to pneumonia with vancomycin and cefepime also add azithromycin for atypical coverage Kidneys shows an CARLO Glucose was noted to be low Blood gas indicates metabolic acidosis Appears the patient received 2L of fluids in the ED IV fluid continued Trend labs Start on cefepime and Vanco until infection can be ruled out (5) Metabolic acidosis: Code(s): E87.2 - Acidosis Status: Acute Assessment and Plan: ABG indicates metabolic acidosis Glucose is low (6) Acute metabolic encephalopathy: Code(s): G93.41 - Metabolic encephalopathy Status: Acute Assessment and Plan: Was noted to be confused Could be from the hypoglycemia Likely related to underlying sepsis Lactic acid is high as well Head ct negative for acute findings (7) CARLO (acute kidney injury): Code(s): N17.9 - Acute kidney failure, unspecified Status: Acute Assessment and Plan: Cr upon arrival was 1.40 Baseline appears to be <1.0 Since receiving IV fluids Cr back to baseline Continue to trend labs Avoid nephrotoxic medications (8) ETOH abuse: Code(s): F10.10 - Alcohol abuse, uncomplicated Status: Acute Assessment and Plan: States he drinks one beer a day [facility] protocol Librium and valium on board [facility] Trend score adjust therapy as indicated Plan Hyponatremia mild Lactic acidosis: 4.5 continue to trend Hypomagnesemia replace and monitor Subjective Date/time seen: 12/07/21 14:28 Interval history: HPI:Patient is a 61-year-old male with a past medical history of alcohol abuse, anemia, hypertension who presented to the ED from home for falling and could not get up.? Earlier in the day the patient [place] acting [place] the gas station.? The patient stated that his had went down and could not get up which he thought he was going to fall however he laid on the floor and he began to help him.? He went home little after that and fell again.? Patient stated that he was on the floor for about 20 minutes to get to his phone to call 911.? He states he has been very shaky and weak.? Upon arrival EMS found his blood sugar to be in the 50s.? He was also having slurred speech and was confused.? He did get some D10 and his mental status improved.? He denies any chest pain, shortness a breath, nausea, vomiting, diarrhea, fevers, sweats, chills, abdominal pain, bleeding.? Patient did state that he has been lightheaded and dizzy for a while and he also has been constipated for a while and states his last BM was about 7 days ago.? He states that he takes his medicine every day.? Upon arrival ED was noted that the patient did have some hypotension with blood pressures getting as low as
[2021-12-07] MEDS: SODIUM CHLORIDE 0.9% IV 500 ML 1000 ML IV CONT (15:07)
[2021-12-07 15:25] LABS: Anion Gap 9 mmol/L (8-16); Blood Urea Nitrogen 20 mg/dL (9-20); Calcium 7.5 mg/dL (8.4-10.2); Carbon Dioxide 22 mmol/L (22-30); Chloride 97 mmol/L (98-107); Estimated CRCL calculation 50 ml/min; Estimated Glomerular Filt Rate > 60; Glucose 120 mg/dL (65-110); Potassium 3.4 mmol/L (3.4-5.0); Sodium 128 mmol/L (137-145)
[2021-12-07 17:05] LABS: Glucose Point of Care 104 mg/dl (65-105)
[2021-12-07] MEDS: SODIUM CHLORIDE 0.9% IV 1,000 ML 150 ML IV CONT (17:41)
[2021-12-07] MEDS: ALBUMIN HUMAN 25% 25 GM/100 ML 100 ML IVPB (22:18)
--- NOTE | 2021-12-07 22:41 | PC.NURSE ---
Notified by Ellen Ivy RN patient is having low blood pressures. Patient oriented but drowsy. Cheetah performed at 2099 and shows patient is only 4.4% fluid responsive. BP at 1999 was 70/45, at 2112 it was 63/53. Patient put in Trendelenburg, and subsequent BP at 2114 83/59 manual and 78/58 manual. This nurse spoke with Roseann BORDEN at [address] Corrales to evaluate the patient. Dr Corrales assessed patient and ordered albumin. Will continue to monitor patient.
[2021-12-08] VITALS (14 sets, daily range): BP systolic 91–105; BP diastolic 59–77; PULSE 93–107; RESP 20–24; TEMP 36.6–37.1; O2SAT 95–100
[2021-12-08 00:24] LABS: Glucose Point of Care 89 mg/dl (65-105)
[2021-12-08] MEDS: SODIUM CHLORIDE 0.9% IV 1,000 ML 150 ML IV CONT ×4 (01:14→23:33)
[2021-12-08] MEDS: SODIUM CHLORIDE 0.9% IV 1,000 ML 999 ML IV CONT (01:14)
[2021-12-08] MEDS: SALINE LOCK FLUSH 20 ML IV PUSH ×2 (05:02→05:55)
[2021-12-08] MEDS: SALINE LOCK FLUSH 10 ML IV PUSH ×3 (05:02→20:52)
[2021-12-08] MEDS: ALBUMIN HUMAN 25% 25 GM/100 ML 100 ML IVPB ×4 (05:10→23:33)
[2021-12-08 05:32] LABS: Lactic Acid Reflex 1.5 mmol/L (0.7-2.0)
[2021-12-08 05:38] LABS: Alanine Aminotransferase 29 U/L (6-50); Albumin Level 1.9 g/dL (3.5-5.1); Alkaline Phosphatase 101 U/L (38-126); Anion Gap 5 mmol/L (8-16); Aspartate Amino Transferase 99 U/L (17-59); Bilirubin,Total 1.7 mg/dL (0.2-1.3); Blood Urea Nitrogen 22 mg/dL (9-20); Calcium 6.6 mg/dL (8.4-10.2); Carbon Dioxide 22 mmol/L (22-30); Chloride 102 mmol/L (98-107); Estimated CRCL calculation 50 ml/min; Estimated Glomerular Filt Rate > 60; Glucose 79 mg/dL (65-110); Lipase 1563 U/L (23-300); Magnesium 2.4 mg/dL (1.6-2.3); Potassium 2.8 mmol/L (3.4-5.0); Sodium 129 mmol/L (137-145)
[2021-12-08 06:00] LABS: Basophils Percent Auto 0.3 % (0.2-1.2); Eosinophils Percent Auto 0.5 % (0-4.4); Hematocrit 23.4 % (42.0-52.0); Hemoglobin 7.8 g/dL (14.0-18.0); Immature Granulocyte Absolute 0.02 K/mm3 (0.00-0.031); Immature Granulocyte Percent A 0.5 % (0-0.5); Lymphocytes Absolute Auto 0.42 K/mm3 (0.9-3.2); Lymphocytes Percent Auto 11.2 % (18.3-44.2); Mean Corpuscular HGB Conc 33.3 g/dl (32-36); Mean Corpuscular Hemoglobin 35.9 pg (26-34); Mean Corpuscular Volume 107.8 fl (80-100); Mean Platelet Volume 9.3 fl (7.4-10.4); Monocytes Absolute Auto 0.2 K/mm3 (0.1-0.6); Monocytes Percent Auto 5.6 % (2.6-8.5); Neutrophils Absolute Auto 3.1 K/mm3 (1.3-6.7); Neutrophils Percent Auto 81.9 % (45.5-73.1); Platelet Count Result 109 k/mm3 (150-375); Red Blood Count 2.17 M/mm3 (4.6-6.20); Red Cell Distribution Width 12.7 % (11.5-14.5); White Blood Count 3.7 K/mm3 (4.5-10.0)
[2021-12-08] MEDS: KCL 40 MEQ/WATER 100 ML 100 ML 25 ML IVPB (06:23)
[2021-12-08] MEDS: THIAMINE HCL 100 MG TABLET PO (09:11)
[2021-12-08] MEDS: FOLIC ACID 1 MG TABLET PO (09:11)
[2021-12-08 12:18] LABS: Glucose Point of Care 77 mg/dl (65-105)
[2021-12-08 16:16] LABS: Potassium 2.9 mmol/L (3.4-5.0)
--- NOTE | 2021-12-08 16:24 | P.PNIM_ITS ---
Progress Note: A&P Assessment and Plan (1) Neuropathy: Code(s): G62.9 - Polyneuropathy, unspecified Status: Acute Assessment and Plan: * Continue home gabapentin * Trend symptoms (2) Acute pancreatitis: Code(s): K85.90 - Acute pancreatitis without necrosis or infection, unspecified Status: Acute Assessment and Plan: * Lipase elevated at 3641 * IV fluid resuscitation * CT indicates pancreatitis likely alcoholic related. LFTs are elevated as well. gallbladder ultrasound was gallbladder sludge with mild gallbladder wall thickening. ascites and hepatic steatosis * Trend labs, including lipase * NPO for bowel rest * WBC is 12.4 (3) Hypertension: Code(s): I10 - Essential (primary) hypertension Status: Acute Assessment and Plan: * BP is hypotensive and hence all his blood pressure medication will be held slowly improving. (4) Severe sepsis: Code(s): A41.9 - Sepsis, unspecified organism; R65.20 - Severe sepsis without septic shock Status: Acute Assessment and Plan: * Meets SIRS with tachycardiac, tachypnea, leukocytosis, acute confusion * Source of infection could be the pancreas, blood with hypoglycemia Patient endorses some cough. Treat for sepsis related to pneumonia with vancomycin and cefepime also add azithromycin for atypical coverage * Kidneys shows an CARLO * Glucose was noted to be low * Blood gas indicates metabolic acidosis * Appears the patient received 2L of fluids in the ED * IV fluid continued * Trend labs * Start on cefepime and Vanco until infection can be ruled out Also on azithromycin (5) Metabolic acidosis: Code(s): E87.2 - Acidosis Status: Acute Assessment and Plan: * ABG indicates metabolic acidosis * Glucose is low (6) Acute metabolic encephalopathy: Code(s): G93.41 - Metabolic encephalopathy Status: Acute Assessment and Plan: * Was noted to be confused * Could be from the hypoglycemia * Likely related to underlying sepsis Lactic acid is high as well * Head ct negative for acute findings (7) CARLO (acute kidney injury): Code(s): N17.9 - Acute kidney failure, unspecified Status: Acute Assessment and Plan: * Cr upon arrival was 1.40 * Baseline appears to be <1.0 * Since receiving IV fluids Cr back to baseline * Continue to trend labs * Avoid nephrotoxic medications (8) ETOH abuse: Code(s): F10.10 - Alcohol abuse, uncomplicated Status: Acute Assessment and Plan: * States he drinks one beer a day * [facility] protocol * Librium and valium on board [facility] * Trend score * adjust therapy as indicated CIWA protocol has been 0. will stop see above for now Plan Hyponatremia mild Lactic acidosis: 4.5 continue to trend And normalized this a.m. Hypomagnesemia replace and monitor Subjective Date/time seen: 12/08/21 16:24 Interval history: HPI:Patient is a 61-year-old male with a past medical history of alcohol abuse, anemia, hypertension who presented to the ED from home for falling and could not get up.? Earlier in the day the patient was acting confused at the gas station.? The patient stated that his had went down and could not get up which he thought he was going to fall however he laid on the floor and he began to help him.?
--- NOTE | 2021-12-08 16:24 | PM.IMPN ---
Progress Note: A&P Assessment and Plan (1) Neuropathy: Code(s): G62.9 - Polyneuropathy, unspecified Status: Acute Assessment and Plan: Continue home gabapentin Trend symptoms (2) Acute pancreatitis: Code(s): K85.90 - Acute pancreatitis without necrosis or infection, unspecified Status: Acute Assessment and Plan: Lipase elevated at [address] indicates pancreatitis likely alcoholic related. LFTs are elevated as well. gallbladder ultrasound was gallbladder sludge with mild gallbladder wall thickening. ascites and hepatic steatosis Trend labs, including lipase NPO for bowel rest WBC is 12.4 (3) Hypertension: Code(s): I10 - Essential (primary) hypertension Status: Acute Assessment and Plan: BP is hypotensive and hence all his blood pressure medication will be held slowly improving. (4) Severe sepsis: Code(s): A41.9 - Sepsis, unspecified organism; R65.20 - Severe sepsis without septic shock Status: Acute Assessment and Plan: Meets SIRS with tachycardiac, tachypnea, leukocytosis, acute confusion Source of infection could be the pancreas, blood with hypoglycemia Patient endorses some cough. Treat for sepsis related to pneumonia with vancomycin and cefepime also add azithromycin for atypical coverage Kidneys shows an CARLO Glucose was noted to be low Blood gas indicates metabolic acidosis Appears the patient received 2L of fluids in the ED IV fluid continued Trend labs Start on cefepime and Vanco until infection can be ruled out Also on azithromycin (5) Metabolic acidosis: Code(s): E87.2 - Acidosis Status: Acute Assessment and Plan: ABG indicates metabolic acidosis Glucose is low (6) Acute metabolic encephalopathy: Code(s): G93.41 - Metabolic encephalopathy Status: Acute Assessment and Plan: Was noted to be confused Could be from the hypoglycemia Likely related to underlying sepsis Lactic acid is high as well Head ct negative for acute findings (7) CARLO (acute kidney injury): Code(s): N17.9 - Acute kidney failure, unspecified Status: Acute Assessment and Plan: Cr upon arrival was 1.40 Baseline appears to be <1.0 Since receiving IV fluids Cr back to baseline Continue to trend labs Avoid nephrotoxic medications (8) ETOH abuse: Code(s): F10.10 - Alcohol abuse, uncomplicated Status: Acute Assessment and Plan: States he drinks one beer a day [facility] protocol Librium and valium on board [facility]ase Trend score adjust therapy as indicated CIWA protocol has been 0. will stop see above for now Plan Hyponatremia mild Lactic acidosis: 4.5 continue to trend And normalized this a.m. Hypomagnesemia replace and monitor Subjective Date/time seen: 12/08/21 16:24 Interval history: HPI:Patient is a 61-year-old male with a past medical history of alcohol abuse, anemia, hypertension who presented to the ED from home for falling and could not get up.? Earlier in the day the patient was acting confused [place] the gas station.? The patient stated that his had went down and could not get up which he thought he was going to fall however he laid on the floor and he began to help him.? He went home little after that and fell again.? Patient stated that he was on the floor for about 20 minutes to get to his phone to call 911.? He states he has been very shaky and weak.? Upon arrival EMS found his blood sugar to be in the 50s.? He was also having slurred speech and was confused.? He did get some D10 and his mental status improved.? He denies any chest pain, shortness a breath, nausea, vomiting, diarrhea, fevers, sweats, chills, abdominal pain, bleeding.? Patient did state that he has been lightheaded and dizzy for a while and he also has been constipated for a whil
[2021-12-08] MEDS: POTASSIUM CHLORIDE INJ 40 MEQ in SODIUM CHLORIDE 0.9% IV 500 ML 130 MEQ IVPB (16:52)
[2021-12-08] MEDS: POTASSIUM CHLORIDE 20 MEQ TABLET 40 MEQ PO (16:52)
[2021-12-08 18:24] LABS: Glucose Point of Care 88 mg/dl (65-105)
[2021-12-08] MEDS: ACETAMINOPHEN 325 MG TABLET 650 MG PO (21:58)
[2021-12-08] MEDS: ONDANSETRON INJ 4 MG/2 ML VIAL IV PUSH (21:59)
[2021-12-08 23:50] LABS: Glucose Point of Care 77 mg/dl (65-105)
[2021-12-09] VITALS (17 sets, daily range): BP systolic 101–124; BP diastolic 66–77; PULSE 93–118; RESP 16–32; TEMP 36.8–37.3; O2SAT 84–100
[2021-12-09] MEDS: ALBUTEROL SULFATE NEB 2.5 MG/3 ML INH INHALATION (04:34)
[2021-12-09] MEDS: IPRATROPIUM BR 0.02% INH SOLN 0.5 MG/2.5 ML VIAL INHALATION (04:34)
[2021-12-09 05:35] LABS: Basophils Percent Auto 0.2 % (0.2-1.2); Eosinophils Percent Auto 0.2 % (0-4.4); Hematocrit 22.9 % (42.0-52.0); Hemoglobin 7.5 g/dL (14.0-18.0); Immature Granulocyte Absolute 0.06 K/mm3 (0.00-0.031); Immature Platelet Fraction Pct 2.3 % (0.9-11.2); Lymphocytes Absolute Auto 0.62 K/mm3 (0.9-3.2); Lymphocytes Percent Auto 10.8 % (18.3-44.2); Mean Corpuscular HGB Conc 32.8 g/dl (32-36); Mean Corpuscular Hemoglobin 35.4 pg (26-34); Mean Platelet Volume 9.7 fl (7.4-10.4); Monocytes Absolute Auto 0.4 K/mm3 (0.1-0.6); Monocytes Percent Auto 6.3 % (2.6-8.5); Neutrophils Absolute Auto 4.7 K/mm3 (1.3-6.7); Neutrophils Percent Auto 81.5 % (45.5-73.1); Platelet Count Result 98 k/mm3 (150-375); Red Blood Count 2.12 M/mm3 (4.6-6.20); Red Cell Distribution Width 12.6 % (11.5-14.5); White Blood Count 5.7 K/mm3 (4.5-10.0)
[2021-12-09 05:51] LABS: Alanine Aminotransferase 33 U/L (6-50); Albumin Level 2.8 g/dL (3.5-5.1); Alkaline Phosphatase 139 U/L (38-126); Anion Gap 12 mmol/L (8-16); Aspartate Amino Transferase 135 U/L (17-59); Bilirubin,Total 2.8 mg/dL (0.2-1.3); Blood Urea Nitrogen 12 mg/dL (9-20); Calcium 6.8 mg/dL (8.4-10.2); Carbon Dioxide 19 mmol/L (22-30); Chloride 106 mmol/L (98-107); Estimated CRCL calculation 88 ml/min; Estimated Glomerular Filt Rate > 60; Glucose 64 mg/dL (65-110); Magnesium 1.8 mg/dL (1.6-2.3); Sodium 137 mmol/L (137-145)
[2021-12-09] MEDS: ALBUMIN HUMAN 25% 25 GM/100 ML 100 ML IVPB ×3 (06:00→17:57)
[2021-12-09] MEDS: SALINE LOCK FLUSH 10 ML IV PUSH ×3 (06:00→20:05)
[2021-12-09 06:20] LABS: Anisocytosis 2+ (NORMAL); Macrocytosis 2+ (NORMAL); Microcytosis 1+ (NORMAL)
[2021-12-09 06:22] LABS: Schistocytes None Seen (NORMAL)
[2021-12-09] MEDS: DEXTROSE 50% 25 GM/50 ML SYRINGE IV PUSH (06:32)
[2021-12-09 06:37] LABS: Glucose Point of Care 61 mg/dl (65-105)
[2021-12-09 06:58] LABS: Glucose Point of Care 122 mg/dl (65-105)
--- NOTE | 2021-12-09 09:44 | P.PNIM_ITS ---
Progress Note: A&P Assessment and Plan (1) Neuropathy: Code(s): G62.9 - Polyneuropathy, unspecified Status: Acute Assessment and Plan: * Continue home gabapentin * Trend symptoms (2) Acute pancreatitis: Code(s): K85.90 - Acute pancreatitis without necrosis or infection, unspecified Status: Acute Assessment and Plan: * Lipase elevated at 3641 * IV fluid resuscitation which will be stopped today due to congestive changes in chest x-ray * CT indicates pancreatitis likely alcoholic related. LFTs are elevated as well. gallbladder ultrasound was gallbladder sludge with mild gallbladder wall thickening. ascites and hepatic steatosis * Trend labs, including lipase * On clear liquid diet * WBC is 12.4 (3) Hypertension: Code(s): I10 - Essential (primary) hypertension Status: Acute Assessment and Plan: * BP is hypotensive and hence all his blood pressure medication will be held Blood pressure is improved now (4) Severe sepsis: Code(s): A41.9 - Sepsis, unspecified organism; R65.20 - Severe sepsis without septic shock Status: Acute Assessment and Plan: * Meets SIRS with tachycardiac, tachypnea, leukocytosis, acute confusion * Source of infection could be the pancreas, blood with hypoglycemia Patient endorses some cough. Treat for sepsis related to pneumonia with vancomycin and cefepime also add azithromycin for atypical coverage * Kidneys shows an CARLO * Glucose was noted to be low * Blood gas indicates metabolic acidosis * Appears the patient received 2L of fluids in the ED * IV fluid continued * Trend labs * Start on cefepime and Vanco until infection can be ruled out Also on azithromycin (5) Metabolic acidosis: Code(s): E87.2 - Acidosis Status: Acute Assessment and Plan: * ABG indicates metabolic acidosis * Glucose is low Repeat ABG (6) Acute metabolic encephalopathy: Code(s): G93.41 - Metabolic encephalopathy Status: Acute Assessment and Plan: * Was noted to be confused * Could be from the hypoglycemia * Likely related to underlying sepsis Lactic acid is high as well * Head ct negative for acute findings (7) CARLO (acute kidney injury): Code(s): N17.9 - Acute kidney failure, unspecified Status: Acute Assessment and Plan: * Cr upon arrival was 1.40 * Baseline appears to be <1.0 * Since receiving IV fluids Cr back to baseline * Continue to trend labs * Avoid nephrotoxic medications (8) ETOH abuse: Code(s): F10.10 - Alcohol abuse, uncomplicated Status: Acute Assessment and Plan: * States he drinks one beer a day * [facility] protocol * Librium and valium on board [facility] * Trend score * adjust therapy as indicated [employer] protocol has been 0. will stop see above for now (9) Acute respiratory failure with hypoxia: Code(s): J96.01 - Acute respiratory failure with hypoxia Status: Acute Assessment and Plan: 12/09 increased oxygen requirement Chest x-ray with congestive changes Give Lasix 60 mg IV x1 and 40 b.i.d. following that. Oxygen supplementation to support his hypoxia CT short of breath may need BiPAP support Stop IV fluids Plan Hyponatremia mild Lactic acidosis: 4.5 continue to trend normalized now Hypomagnesemia
--- NOTE | 2021-12-09 09:44 | PM.IMPN ---
Progress Note: A&P Assessment and Plan (1) Neuropathy: Code(s): G62.9 - Polyneuropathy, unspecified Status: Acute Assessment and Plan: Continue home gabapentin Trend symptoms (2) Acute pancreatitis: Code(s): K85.90 - Acute pancreatitis without necrosis or infection, unspecified Status: Acute Assessment and Plan: Lipase elevated at 3641 IV fluid resuscitation which will be stopped today due to congestive changes in chest x-ray CT indicates pancreatitis likely alcoholic related. LFTs are elevated as well. gallbladder ultrasound was gallbladder sludge with mild gallbladder wall thickening. ascites and hepatic steatosis Trend labs, including lipase On clear liquid diet WBC is 12.4 (3) Hypertension: Code(s): I10 - Essential (primary) hypertension Status: Acute Assessment and Plan: BP is hypotensive and hence all his blood pressure medication will be held Blood pressure is improved now (4) Severe sepsis: Code(s): A41.9 - Sepsis, unspecified organism; R65.20 - Severe sepsis without septic shock Status: Acute Assessment and Plan: Meets SIRS with tachycardiac, tachypnea, leukocytosis, acute confusion Source of infection could be the pancreas, blood with hypoglycemia Patient endorses some cough. Treat for sepsis related to pneumonia with vancomycin and cefepime also add azithromycin for atypical coverage Kidneys shows an CARLO Glucose was noted to be low Blood gas indicates metabolic acidosis Appears the patient received 2L of fluids in the ED IV fluid continued Trend labs Start on cefepime and Vanco until infection can be ruled out Also on azithromycin (5) Metabolic acidosis: Code(s): E87.2 - Acidosis Status: Acute Assessment and Plan: ABG indicates metabolic acidosis Glucose is low Repeat ABG (6) Acute metabolic encephalopathy: Code(s): G93.41 - Metabolic encephalopathy Status: Acute Assessment and Plan: Was noted to be confused Could be from the hypoglycemia Likely related to underlying sepsis Lactic acid is high as well Head ct negative for acute findings (7) CARLO (acute kidney injury): Code(s): N17.9 - Acute kidney failure, unspecified Status: Acute Assessment and Plan: Cr upon arrival was 1.40 Baseline appears to be <1.0 Since receiving IV fluids Cr back to baseline Continue to trend labs Avoid nephrotoxic medications (8) ETOH abuse: Code(s): F10.10 - Alcohol abuse, uncomplicated Status: Acute Assessment and Plan: States he drinks one beer a day [facility] protocol Librium and valium on board incase Trend score adjust therapy as indicated CIWA protocol has been 0. will stop see above for now (9) Acute respiratory failure with hypoxia: Code(s): J96.01 - Acute respiratory failure with hypoxia Status: Acute Assessment and Plan: 12/09 increased oxygen requirement Chest x-ray with congestive changes Give Lasix 60 mg IV x1 and 40 b.i.d. following that. Oxygen supplementation to support his hypoxia CT short of breath may need BiPAP support Stop IV fluids Plan Hyponatremia mild Lactic acidosis: 4.5 continue to trend normalized now Hypomagnesemia replace and monitor Subjective Date/time seen: 12/09/21 09:44 Interval history: HPI:Patient is a 61-year-old male with a past medical history of alcohol abuse, anemia, hypertension who presented to the ED from home for falling and could not get up.? Earlier in the day the patient was acting confused [place] the gas station.? The patient stated that his had went down and could not get up which he thought he was going to fall however he laid on the floor and he began to help him.? He went home little after that and fell again.? Patient stated that he was on the floor for about 20 minutes to
[2021-12-09 09:48] LABS: Alveolar/Arterial O2 Gradient 144.6 mmHg; Base Excess ABG -5.3 mEq/l (+/-2.0); Fractional Inspired Oxygen 40 %; HCO3 ABG 18.2 mEq/l (22.0-26.0); Oxygen Content ABG 11.7 %vol (16.0-22.0); Oxygen Saturation ABG 98.2 % (95.0-100.0); Oxyhemoglobin 96.3 % THb (90.0-100.0); PO2 ABG 108.4 mmHg (80.0-100.0); PO2 FiO2 Ratio Arterial Blood 2.71 %; Total Hemoglobin 8.5 g/dL (12.0-18.0); pH ABG 7.431 (7.350-7.450)
[2021-12-09 09:49] LABS: Device NASAL CANNULA; Modified Allen's Test Pass; Site Drawn LEFT RADIAL
[2021-12-09] MEDS: FUROSEMIDE INJ 100 MG/10 ML VIAL 60 MG IV PUSH (10:57)
[2021-12-09] MEDS: FOLIC ACID 1 MG TABLET PO (10:57)
[2021-12-09] MEDS: THIAMINE HCL 100 MG TABLET PO (10:57)
[2021-12-09 10:59] LABS: Lipase 903 U/L (23-300)
[2021-12-09] MEDS: POTASSIUM CHLORIDE 20 MEQ PACKET (FOR LIQUID) 40 MEQ PO (10:59)
[2021-12-09 11:10] LABS: NT Pro B Type Natriuretic Pept 2880 pg/mL (5-100)
[2021-12-09 12:09] LABS: Glucose Point of Care 125 mg/dl (65-105)
--- NOTE | 2021-12-09 14:07 | WPDGICN ---
Assessment and Plan Assessment and plan (1) Acute pancreatitis: Code(s): K85.90 - Acute pancreatitis without necrosis or infection, unspecified Status: Acute Assessment and Plan: most likely alcohol related continue to monitor (2) Alcoholic ketoacidosis: Code(s): E87.2 - Acidosis Status: Acute Assessment and Plan: medical management thiamine, mvi withdrawal precautions (3) Acute respiratory failure with hypoxia: Code(s): J96.01 - Acute respiratory failure with hypoxia Status: Acute Assessment and Plan: noted also rhonchi and requiring oxygen (4) Acute metabolic encephalopathy: Code(s): G93.41 - Metabolic encephalopathy Status: Acute Assessment and Plan: confused on arrival, still poor historian monitor (5) Elevated liver enzymes: Code(s): R74.8 - Abnormal levels of other serum enzymes Status: Acute Assessment and Plan: from alcohol abuse, pancreatitis, probably also liver disease (6) Anemia: Code(s): D64.9 - Anemia, unspecified Status: Acute (7) Abnormal CT scan, esophagus: Code(s): R93.3 - Abnormal findings on diagnostic imaging of other parts of digestive tract Status: Acute Assessment and Plan: will do EGD, also assess if changes of liver disease/portal hypertension iv protonix GI Consult Note Consult date/time: 12/09/21 14:07 HPI: Omega Hardwick is a 61 year old male history of alcohol abuse, anemia, hypertension who came here from home after falling, he is relatively poor historian and based on records was acting confused at the gas station.?He states he has been very shaky and weak.? Upon arrival EMS found his blood sugar to be in the 50s and treated. ER showed metabolic acidosis with a CO2 of 19.6, lipase 3641, tn 2.8, elevated transaminases c/w alcohol use, also hb 7.5 (in the past as low as 6).? CT of the abdomen and pelvis showed acute pancreatitis, thickening and enhancement of the distal esophagus, suspicious for esophagitis. Mild thickening of the gastric antrum and proximal duodenum, likely reactive secondary to adjacent pancreatitis, Hepatic steatosis.. Review of Systems Constitutional: Constitutional: Reports lethargy Eyes: Eyes: Denies blurry vision ENT: Reports Normal hearing present Cardiovascular: Cardiovascular: Denies chest pain Respiratory: Respiratory: Reports chest congestion Gastrointestinal: Gastrointestinal: Reports abdominal pain Genitourinary: Genitourinary: Denies dysuria Musculoskeletal: Musculoskeletal: Denies back pain Integumentary/Breasts: Skin/Breast: Denies rash Neurologic: Comments: confusion PMFSH Past Medical History Medical History (Updated 12/09/21 @ 14:17 by Dez Esquivel MD) Abnormal CT scan, esophagus Anemia Elevated liver enzymes Hypertension Neuropathy Family History Family History Father COPD (chronic obstructive pulmonary disease) Mother Heart disease Social History Social History Social History: patient lives at home by himself. He has 1 son and has not . Patient states that his son lives in [place]. Patient has no pets and wishes to be a full code at this time. Patient wants his friend Faraz to be his surrogate. Smoking packs per day: 0.5 Smoking cigarettes per day: 10.0 Years smoked: 30 Smoking pack-years: 15.00 Smoking status: Current every day smoker Tobacco type: cigarettes Alcohol intake: current Drinks per week: 7 Substance use: never Living arrangements: alone Occupation/Education: unemployed Additional occupation/education comments: Used to work at [employer] Gender identity (if verbalized by the patient): Male Spiritual care concerns: No Agree to blood products: Yes Meds Home Medications and Allergies Home Medications M
[2021-12-09] MEDS: FUROSEMIDE INJ 40 MG/4 ML VIAL IV PUSH (16:41)
[2021-12-09 18:06] LABS: Glucose Point of Care 185 mg/dl (65-105)
[2021-12-10] VITALS (28 sets, daily range): BP systolic 99–120; BP diastolic 64–86; PULSE 99–118; RESP 16–30; TEMP 36.6–37.7; O2SAT 93–100
--- NOTE | 2021-12-10 | ECHO_ITS ---
Patient Info Name: Omega Hardwick Age: 61 years : 1960 Gender: Male Ht: 69 in Wt: 129 lbs BSA: 1.68 m2 HR: 106 bpm BP: 104 / 72 mmHg Heart Rhythm: Sinus Rhythm Technical Quality: Fair Exam Date: 12/10/2021 4:09 PM Exam Location: [facility] Patient Status: Inpatient Admit Date: 12/08/2021 Staff Ordering Physician: Erich Larkin MD Supply Chain Buyer: Keely Bernal RDCS Attending Provider: Erich Larkin MD Exam Type: CA echo doppler color flow Study Info Indications - chf Complete two-dimensional, color flow and Doppler transthoracic echocardiogram is performed. Summary 1. Complete two-dimensional, color flow and Doppler transthoracic echocardiogram is performed. 2. Left ventricular chamber dimension is normal. 3. Left ventricular systolic function is normal, estimated at 60-65%. 4. There is mildly increased left ventricular wall thickness. 5. The left ventricular diastolic function is normal. 6. Left atrial chamber dimension is mildly enlarged. 7. There is mild mitral valve regurgitation. 8. There is mild tricuspid valve regurgitation. 9. Mild pulmonary hypertension, estimated pulmonary arterial systolic pressure is 39 mmHg. 10. There is mild pulmonic regurgitation. Left Ventricle Left ventricular chamber dimension is normal. Left ventricular systolic function is normal, estimated at 60-65%. There is mildly increased left ventricular wall thickness. The left ventricular diastolic function is normal. Right Ventricle Right ventricular chamber dimension is normal. Right ventricular systolic function is normal. Left Atria Left atrial chamber dimension is mildly enlarged. Right Atria Right atrial chamber dimension is normal. Atrial Septum Intact interatrial septum visualized by color flow imaging. Aortic Valve The aortic valve is trileaflet. There is mild aortic valve sclerosis. There is no aortic valve stenosis. There is trace aortic valve regurgitation. Pulmonic Valve The pulmonic valve is normal. There is no pulmonic valve stenosis. There is mild pulmonic regurgitation. Mitral Valve The mitral valve has normal leaflets. There is no mitral valve stenosis. There is mild mitral valve regurgitation. Tricuspid Valve The tricuspid valve leaflets are normal. There is no significant tricuspid valve stenosis. There is mild tricuspid valve regurgitation. Mild pulmonary hypertension, estimated pulmonary arterial systolic pressure is 39 mmHg. Pericardium/Pleural The pericardium appears normal. There is no pericardial effusion. Aorta The aortic root size at the sinus of Valsalva is normal. Left Ventricular Outflow Tract Name Value Normal LVOT 2D LVOT Diameter 2.0 cm LVOT Doppler LVOT Peak Gradient 4 mmHg LVOT Mean Gradient 2 mmHg LVOT VTI 14 cm LVOT VTI/AV VTI Ratio 0.9 LVOT Stroke Volume 44 ml LVOT CO 4.0 l/min LVOT CI
[2021-12-10 00:05] LABS: Glucose Point of Care 109 mg/dl (65-105)
[2021-12-10] MEDS: ALBUMIN HUMAN 25% 25 GM/100 ML 100 ML IVPB ×4 (00:53→18:56)
[2021-12-10] MEDS: HALOPERIDOL LACTATE 5 MG/ML VIAL IM ×2 (02:40→04:25)
--- NOTE | 2021-12-10 04:46 | P.PNCROSS_ITS ---
Event Note Event Note Event Note: I was called to evaluate the patient due to restlessness, agitation, respirato ry rate in the 30s and requiring supplemental oxygen. Objective: Patient laying in bed awake supplemental oxygen by nasal cannula down patient with mouth breathing keeping his saturation on in the 96-97% this is on 5 L by nasal cannula Patient is noted to be making some gurgling sounds subjective: Patient is delirious general: Laying in bed patient looks comfortable no acute distress trivedi pplemental oxygen on by nasal cannula HEENT: Atraumatic normocephalic PERRLA EOM intact neck supple no JVD respiratory transmitted sounds clear to auscultation bilaterally breath sounds diminished at the bases no use of accessory muscles. cardiovascular: S1-S2 heard no murmur rubs or gallops abdomen: Soft nontender nondistended no hepatosplenomegaly nontender extremities: No edema central nervous system: Cranial nerves II-XII intact, delirious. assessment and plan: 1. Acute hypoxic respiratory failure: Chest x-ray shows fluid overload bilateral moderate pleural effusions will give 40 of Lasix now implement free water restriction daily intake and output CBC, BMP continue supplemental oxygen titrate oxygen to oxygen saturation above 94% patient on cefepime in +Zithromax plus vanc
[2021-12-10] MEDS: SALINE LOCK FLUSH 10 ML IV PUSH ×3 (04:51→20:34)
[2021-12-10] MEDS: FUROSEMIDE INJ 40 MG/4 ML VIAL IV PUSH ×3 (04:51→17:31)
--- NOTE | 2021-12-10 05:17 | PC.NURSE ---
0515- Spoke with Helder, patient's son ([phone]). Spoke to him about patient becoming more disoriented and not wanting to wear telemetry or keep his oxygen on. Patient states he doesn't want to do this anymore. Patient is listed as a full code but patient is much more confused. Helder states to keep patient a full code and to proceed with intubation if needed.
[2021-12-10 07:13] LABS: Basophils Percent Auto 0.2 % (0.2-1.2); Eosinophils Percent Auto 0.2 % (0-4.4); Hematocrit 21.8 % (42.0-52.0); Hemoglobin 7.5 g/dL (14.0-18.0); Immature Granulocyte Absolute 0.03 K/mm3 (0.00-0.031); Immature Granulocyte Percent A 0.5 % (0-0.5); Immature Platelet Fraction Pct 3.6 % (0.9-11.2); Lymphocytes Percent Auto 7.2 % (18.3-44.2); Mean Corpuscular HGB Conc 34.4 g/dl (32-36); Mean Corpuscular Hemoglobin 35.7 pg (26-34); Mean Corpuscular Volume 103.8 fl (80-100); Mean Platelet Volume 9.6 fl (7.4-10.4); Monocytes Absolute Auto 0.4 K/mm3 (0.1-0.6); Monocytes Percent Auto 7.7 % (2.6-8.5); Neutrophils Absolute Auto 4.7 K/mm3 (1.3-6.7); Neutrophils Percent Auto 84.2 % (45.5-73.1); Platelet Count Result 78 k/mm3 (150-375); Red Cell Distribution Width 12.4 % (11.5-14.5); White Blood Count 5.6 K/mm3 (4.5-10.0)
[2021-12-10 07:30] LABS: Alanine Aminotransferase 33 U/L (6-50); Albumin Level 4.4 g/dL (3.5-5.1); Alkaline Phosphatase 172 U/L (38-126); Anion Gap 18 mmol/L (8-16); Aspartate Amino Transferase 114 U/L (17-59); Bilirubin,Total 4.4 mg/dL (0.2-1.3); Blood Urea Nitrogen 11 mg/dL (9-20); Calcium 7.4 mg/dL (8.4-10.2); Carbon Dioxide 28 mmol/L (22-30); Chloride 90 mmol/L (98-107); Estimated CRCL calculation 81 ml/min; Estimated Glomerular Filt Rate > 60; Glucose 75 mg/dL (65-110); Magnesium 1.2 mg/dL (1.6-2.3); Potassium 2.4 mmol/L (3.4-5.0); Sodium 136 mmol/L (137-145)
[2021-12-10 07:46] LABS: Anisocytosis 1+ (NORMAL); Platelet Estimate Decreased (Adequate)
[2021-12-10 08:45] LABS: Schistocytes None Seen (NORMAL)
[2021-12-10] MEDS: IPRATROPIUM BR 0.02% INH SOLN 0.5 MG/2.5 ML VIAL 1 MG INHALATION ×4 (09:15→19:57)
[2021-12-10] MEDS: ALBUTEROL SULFATE NEB 2.5 MG/3 ML INH INHALATION ×4 (09:15→19:57)
[2021-12-10 09:24] LABS: Alveolar/Arterial O2 Gradient 190.5 mmHg; Base Excess ABG 5.3 mEq/l (+/-2.0); Fractional Inspired Oxygen 40 %; HCO3 ABG 28.1 mEq/l (22.0-26.0); Oxygen Content ABG 10.7 %vol (16.0-22.0); Oxygen Saturation ABG 92.5 % (95.0-100.0); Oxyhemoglobin 90.4 % THb (90.0-100.0); PCO2 ABG 33.8 mmHg (35.0-45.0); PO2 ABG 55.8 mmHg (80.0-100.0); PO2 FiO2 Ratio Arterial Blood 1.39 %; Total Hemoglobin 8.4 g/dL (12.0-18.0)
[2021-12-10 09:25] LABS: Device NASAL CANNULA; Modified Allen's Test Pass; Site Drawn RIGHT RADIAL; pH ABG 7.538 (7.350-7.450)
--- NOTE | 2021-12-10 09:27 | PCPTNOTE ---
checked in with Luz Elena Forrester RN, to see patient, she asks to hold evaluation today secondary to patient having trouble breathing.
--- NOTE | 2021-12-10 10:22 | PCOTNOTE ---
Per nursing, pt. has fluid overload and difficulty with breathing, requests that we hold pt. for therapy services today. Will follow
[2021-12-10 11:46] LABS: Glucose Point of Care 77 mg/dl (65-105)
[2021-12-10] MEDS: LIDOCAINE HCL 1% PF INJ 5 ML VIAL INFILTRATE (11:54)
[2021-12-10] MEDS: FOLIC ACID 1 MG/0.2 ML INJ IV PUSH (12:04)
[2021-12-10] MEDS: THIAMINE HCL 200 MG/2 ML VIAL 100 MG IV PUSH (12:05)
[2021-12-10] MEDS: MAGNESIUM SULF 2 GM/WATER 50ML 2 GM/50 ML BAG IVPB (12:07)
[2021-12-10] MEDS: KCL 40 MEQ/WATER 100 ML 100 ML 25 ML IVPB ×2 (12:07→18:57)
[2021-12-10] MEDS: PANTOPRAZOLE SODIUM IV 40 MG VIAL IV PUSH (12:17)
--- NOTE | 2021-12-10 13:21 | P.PNIM_ITS ---
Progress Note: A&P Assessment and Plan (1) Neuropathy: Code(s): G62.9 - Polyneuropathy, unspecified Status: Acute Assessment and Plan: * Continue home gabapentin * Trend symptoms (2) Acute pancreatitis: Code(s): K85.90 - Acute pancreatitis without necrosis or infection, unspecified Status: Acute Assessment and Plan: * Lipase elevated at 3641 * IV fluid resuscitation which will be stopped 12/09 due to congestive changes in chest x-ray * CT indicates pancreatitis likely alcoholic related. LFTs are elevated as well. gallbladder ultrasound was gallbladder sludge with mild gallbladder wall thickening. ascites and hepatic steatosis * Trend labs, including lipase which is been improving * was started on clear liquid diet but will change to NPO due to his respiratory status and risk of aspiration * WBC is 12.4 (3) Hypertension: Code(s): I10 - Essential (primary) hypertension Status: Acute Assessment and Plan: * BP is hypotensive and hence all his blood pressure medication will be held Blood pressure is improved now (4) Severe sepsis: Code(s): A41.9 - Sepsis, unspecified organism; R65.20 - Severe sepsis without septic shock Status: Acute Assessment and Plan: * Meets SIRS with tachycardiac, tachypnea, leukocytosis, acute confusion * Source of infection could be the pancreas, blood with hypoglycemia Patient endorses some cough. Treat for sepsis related to pneumonia with vancomycin and cefepime also add azithromycin for atypical coverage * Kidneys shows an CARLO * Glucose was noted to be low * Blood gas indicates metabolic acidosis * Appears the patient received 2L of fluids in the ED * IV fluid continued * Trend labs * Start on cefepime and Vanco until infection can be ruled out Also on azithromycin. * Vancomycin discontinued. Blood culture 03/19 positive for Staph epidermidis which is likely a contaminant (5) Metabolic acidosis: Code(s): E87.2 - Acidosis Status: Acute Assessment and Plan: * ABG indicates metabolic acidosis * Glucose is low Repeat ABG today with respiratory alkalosis likely due to congestive heart failure (6) Acute metabolic encephalopathy: Code(s): G93.41 - Metabolic encephalopathy Status: Acute Assessment and Plan: * Was noted to be confused * Could be from the hypoglycemia * Likely related to underlying sepsis Lactic acid is high as well * Head ct negative for acute findings * Now showing signs of alcohol withdrawal with delirium overnight. Currently alert and oriented x3. If worsens will benefit from Precedex drip in ICU due to his poor respiratory status (7) CARLO (acute kidney injury): Code(s): N17.9 - Acute kidney failure, unspecified Status: Acute Assessment and Plan: * Cr upon arrival was 1.40 * Baseline appears to be <1.0 * Since receiving IV fluids Cr back to baseline * Continue to trend labs * Avoid nephrotoxic medications (8) ETOH abuse: Code(s): F10.10 - Alcohol abuse, uncomplicated Status: Acute Assessment and Plan: * States he drinks one beer a day * CIWA protocol * Librium and valium on board incase * Trend score * adjust therapy as indicated CIWA protocol has been 0. now showing signs of alcohol withdrawal Will restart CIWA protocol but will raymond
--- NOTE | 2021-12-10 13:21 | PM.IMPN ---
Progress Note: A&P Assessment and Plan (1) Neuropathy: Code(s): G62.9 - Polyneuropathy, unspecified Status: Acute Assessment and Plan: Continue home gabapentin Trend symptoms (2) Acute pancreatitis: Code(s): K85.90 - Acute pancreatitis without necrosis or infection, unspecified Status: Acute Assessment and Plan: Lipase elevated at 3641 IV fluid resuscitation which will be stopped 12/09 due to congestive changes in chest x-ray CT indicates pancreatitis likely alcoholic related. LFTs are elevated as well. gallbladder ultrasound was gallbladder sludge with mild gallbladder wall thickening. ascites and hepatic steatosis Trend labs, including lipase which is been improving was started on clear liquid diet but will change to NPO due to his respiratory status and risk of aspiration WBC is 12.4 (3) Hypertension: Code(s): I10 - Essential (primary) hypertension Status: Acute Assessment and Plan: BP is hypotensive and hence all his blood pressure medication will be held Blood pressure is improved now (4) Severe sepsis: Code(s): A41.9 - Sepsis, unspecified organism; R65.20 - Severe sepsis without septic shock Status: Acute Assessment and Plan: Meets SIRS with tachycardiac, tachypnea, leukocytosis, acute confusion Source of infection could be the pancreas, blood with hypoglycemia Patient endorses some cough. Treat for sepsis related to pneumonia with vancomycin and cefepime also add azithromycin for atypical coverage Kidneys shows an CARLO Glucose was noted to be low Blood gas indicates metabolic acidosis Appears the patient received 2L of fluids in the ED IV fluid continued Trend labs Start on cefepime and Vanco until infection can be ruled out Also on azithromycin. Vancomycin discontinued. Blood culture / positive for Staph epidermidis which is likely a contaminant (5) Metabolic acidosis: Code(s): E87.2 - Acidosis Status: Acute Assessment and Plan: ABG indicates metabolic acidosis Glucose is low Repeat ABG today with respiratory alkalosis likely due to congestive heart failure (6) Acute metabolic encephalopathy: Code(s): G93.41 - Metabolic encephalopathy Status: Acute Assessment and Plan: Was noted to be confused Could be from the hypoglycemia Likely related to underlying sepsis Lactic acid is high as well Head ct negative for acute findings Now showing signs of alcohol withdrawal with delirium overnight. Currently alert and oriented x3. If worsens will benefit from Precedex drip in ICU due to his poor respiratory status (7) CARLO (acute kidney injury): Code(s): N17.9 - Acute kidney failure, unspecified Status: Acute Assessment and Plan: Cr upon arrival was 1.40 Baseline appears to be <1.0 Since receiving IV fluids Cr back to baseline Continue to trend labs Avoid nephrotoxic medications (8) ETOH abuse: Code(s): F10.10 - Alcohol abuse, uncomplicated Status: Acute Assessment and Plan: States he drinks one beer a day CIAZ protocol Librium and valium on board incase Trend score adjust therapy as indicated CIWA protocol has been 0. now showing signs of alcohol withdrawal Will restart CIWA protocol but will avoid benzodiazepines due to respiratory failure (9) Acute respiratory failure with hypoxia: Code(s): J96.01 - Acute respiratory failure with hypoxia Status: Acute Assessment and Plan: 12/09 increased oxygen requirement Chest x-ray with congestive changes Give Lasix 60 mg IV x1 and 40 b.i.d. following that. Oxygen supplementation to support his hypoxia CT short of breath may need BiPAP support Stop IV fluids Continue aggressive IV diuresis. Good urine output noted from yesterday. Chest x-ray is still congested with bilateral pleu
--- NOTE | 2021-12-10 15:01 | WPDGIPROGNO ---
Progress Note: A&P Assessment and Plan (1) Acute respiratory failure with hypoxia: Code(s): J96.01 - Acute respiratory failure with hypoxia Status: Acute Assessment and Plan: more pulmonary edema and requiring oxygen EGD was canceled, recommend only medical treatment (CT scan showed esophagitis)- protonix advance diet as tolerated with aspiration precautions (he is alcoholic and also came in with pancreatitis) (2) Abnormal CT scan, esophagus: Code(s): R93.3 - Abnormal findings on diagnostic imaging of other parts of digestive tract Status: Acute Assessment and Plan: medical management no egd- had more respiratory distress (3) Elevated liver enzymes: Code(s): R74.8 - Abnormal levels of other serum enzymes Status: Acute Assessment and Plan: alcohol related and also pancreatitis (4) Acute pancreatitis: Code(s): K85.90 - Acute pancreatitis without necrosis or infection, unspecified Status: Acute (5) Alcoholic ketoacidosis: Code(s): E87.2 - Acidosis Status: Acute (6) ETOH abuse: Code(s): F10.10 - Alcohol abuse, uncomplicated Status: Acute Assessment and Plan: medical support, also hypokalemia- risk for refeeding syndrome, repleting lytes and monitoring Subjective Date/time seen: 12/10/21 15:01 Interval history: noted more respiratory distress and rhonchi, decided to cancel egd. No report of n/v now. Review of Systems Review of Systems: All systems reviewed & are unremarkable except as noted in HPI and below Exam Const: Other: chronically ill appearing, using oxygen HENMT: General nose exam: Normal nares present Eyes: General: appearance normal, both eyes and all related structures Neck: Neck: supple Resp: Auscultation: rhonchi and no wheezes Other: more coarse BS Cardio: Rate: regular rate GI: GI Palp: Yes Soft to palpation and Yes Tenderness to palpation present (GI) (epigastric, no rebound) Auscultation: normal bowel sounds Neuro: Speech: normal speech Extrem: General: normal to inspection Objective Data Vital Signs Vital Signs: Vital Signs - 24 hr 12/09/21 16:00 12/09/21 16:00 12/09/21 16:00 Temperature 99 F Pulse Rate 113 H 118 H Respiratory Rate 32 H Blood Pressure 124/76 Pulse Oximetry 95 94 Oxygen Delivery Nasal Cannula Oxygen Flow Rate 4 12/09/21 18:00 12/09/21 20:00 12/09/21 20:00 Temperature 99.1 F Pulse Rate 109 H 108 H 109 H Respiratory Rate 22 H Blood Pressure 116/77 Pulse Oximetry 98 Oxygen Delivery Oxygen Flow Rate 12/09/21 20:00 12/09/21 22:00 12/09/21 23:47 Temperature 99.0 F Pulse Rate 106 H 108 H Respiratory Rate 20 Blood Pressure 119/74 Pulse Oximetry 95 100 Oxygen Delivery Nasal Cannula Oxygen Flow Rate 4 12/10/21 00:00 12/10/21 00:00 12/10/21 02:00 Temperature Pulse Rate 113 H 105 H Respiratory Rate Blood Pressure Pulse Oximetry 98 Oxygen Delivery Nasal Cannula Oxygen Flow Rate 4 12/10/21 03:52 12/09/21 23:20 12/10/21 04:00 Temperature 97.8 F Pulse Rate 110 H 100 Respiratory Rate 30 H Blood Pressure 114/77 Pulse Oximetry 97 96 Oxygen Delivery Nasal Cannula Oxygen Flow Rate 4 12/10/21 04:00 12/10/21 06:00 12/10/21 07:47 Temperature 98.5 F Pulse Rate 105 H 102 H Respiratory Rate 16 Blood Pressure 120/86 Pulse Oximetry 97 97 Oxygen Delivery Nasal Cannula Oxygen Flow Rate 5 12/10/21 08:24 12/10/21 08:00 12/10/21 09:15 Temperature 99.8 F H Pulse Rate 115 H 110 H 106 H Respiratory Rate 22 H 20 Blood Pressure 105/71 Pulse Oximetry 94 Oxygen Delivery Oxygen Flow Rate 12/10/21 09:18 12/10/21 09:52 12/10/21 12:18 Temperature 99.5 F Pulse Rate 112 H 102 H 106 H Respiratory Rate 20 20 22 H Blood Pressure 104/72 Pulse Oximetry 93 56 L Oxygen Delivery Nasal Cannula Oxygen Flow Rate 5 12/10/21 08:00 12/10/21 12
[2021-12-10 18:00] LABS: Glucose Point of Care 83 mg/dl (65-105)
[2021-12-10 19:21] LABS: Alveolar/Arterial O2 Gradient 156.4 mmHg; Base Excess ABG 6.7 mEq/l (+/-2.0); Fractional Inspired Oxygen 36 %; HCO3 ABG 29.4 mEq/l (22.0-26.0); Oxygen Content ABG 11.1 %vol (16.0-22.0); Oxygen Saturation ABG 94.2 % (95.0-100.0); Oxyhemoglobin 92.1 % THb (90.0-100.0); PCO2 ABG 34.2 mmHg (35.0-45.0); PO2 ABG 60.6 mmHg (80.0-100.0); PO2 FiO2 Ratio Arterial Blood 1.68 %; Total Hemoglobin 8.5 g/dL (12.0-18.0)
[2021-12-10 19:24] LABS: Modified Allen's Test Pass; Site Drawn RIGHT RADIAL; pH ABG 7.552 (7.350-7.450)
[2021-12-10 19:25] LABS: Device NASAL CANNULA
[2021-12-10] MEDS: DORNASE ALFA INH SOLN 1 MG/ML 2.5 ML AMP 2.5 MG INHALATION (19:58)
[2021-12-10] MEDS: CENTRAL LINE FLUSH 10 ML IV PUSH (20:34)
[2021-12-10 23:21] LABS: Glucose Point of Care 103 mg/dl (65-105)
[2021-12-11] VITALS (36 sets, daily range): BP systolic 95–121; BP diastolic 57–80; PULSE 88–112; RESP 18–28; TEMP 36.4–37.4; O2SAT 82–100
[2021-12-11] MEDS: ALBUMIN HUMAN 25% 25 GM/100 ML 100 ML IVPB ×5 (00:05→23:48)
[2021-12-11] MEDS: IPRATROPIUM BR 0.02% INH SOLN 0.5 MG/2.5 ML VIAL 1 MG INHALATION ×6 (00:08→20:55)
[2021-12-11] MEDS: ALBUTEROL SULFATE NEB 2.5 MG/3 ML INH INHALATION ×6 (00:08→20:55)
[2021-12-11 00:24] LABS: Potassium 2.8 mmol/L (3.4-5.0)
[2021-12-11 00:50] LABS: Magnesium 1.8 mg/dL (1.6-2.3)
[2021-12-11] MEDS: MAGNESIUM SULF 2 GM/WATER 50ML 2 GM/50 ML BAG IVPB (01:34)
[2021-12-11] MEDS: KCL 40 MEQ/WATER 100 ML 100 ML 25 ML IVPB (02:31)
[2021-12-11] MEDS: SALINE LOCK FLUSH 10 ML IV PUSH ×3 (05:33→23:47)
[2021-12-11] MEDS: CENTRAL LINE FLUSH 10 ML IV PUSH ×3 (05:34→23:48)
[2021-12-11 07:38] LABS: Glucose Point of Care 100 mg/dl (65-105)
[2021-12-11 07:56] LABS: Immunochemical Fecal Occult Bl Negative (N)
[2021-12-11 07:57] LABS: IFOB Positive Control Positive
[2021-12-11] MEDS: DORNASE ALFA INH SOLN 1 MG/ML 2.5 ML AMP 2.5 MG INHALATION ×2 (08:20→20:55)
[2021-12-11] MEDS: FUROSEMIDE INJ 40 MG/4 ML VIAL IV PUSH ×2 (08:27→16:14)
[2021-12-11] MEDS: PANTOPRAZOLE SODIUM IV 40 MG VIAL IV PUSH (08:27)
[2021-12-11] MEDS: THIAMINE HCL 200 MG/2 ML VIAL 100 MG IV PUSH (08:27)
[2021-12-11] MEDS: FOLIC ACID 1 MG/0.2 ML INJ IV PUSH (08:27)
[2021-12-11 08:40] LABS: Basophils Percent Auto 0.5 % (0.2-1.2); Eosinophils Percent Auto 0.5 % (0-4.4); Immature Granulocyte Absolute 0.28 K/mm3 (0.00-0.031); Immature Platelet Fraction Pct 3.6 % (0.9-11.2); Lymphocytes Percent Auto 7.5 % (18.3-44.2); Mean Corpuscular HGB Conc 33.8 g/dl (32-36); Mean Corpuscular Hemoglobin 36.1 pg (26-34); Mean Corpuscular Volume 106.6 fl (80-100); Mean Platelet Volume 9.8 fl (7.4-10.4); Monocytes Absolute Auto 0.5 K/mm3 (0.1-0.6); Monocytes Percent Auto 11.6 % (2.6-8.5); Neutrophils Absolute Auto 2.9 K/mm3 (1.3-6.7); Neutrophils Percent Auto 72.9 % (45.5-73.1); Nucleated Red Blood Cells Perc 0.5 % (0.0-0.2); Platelet Count Result 71 k/mm3 (150-375); Red Blood Count 1.83 M/mm3 (4.6-6.20); Red Cell Distribution Width 13.2 % (11.5-14.5)
[2021-12-11 08:43] LABS: Hematocrit 19.5 % (42.0-52.0); Hemoglobin 6.6 g/dL (14.0-18.0)
[2021-12-11 09:35] LABS: Alanine Aminotransferase 25 U/L (6-50); Albumin Level 4.3 g/dL (3.5-5.1); Alkaline Phosphatase 207 U/L (38-126); Anion Gap 18 mmol/L (8-16); Aspartate Amino Transferase 113 U/L (17-59); Bilirubin,Total 5.2 mg/dL (0.2-1.3); Blood Urea Nitrogen 17 mg/dL (9-20); Calcium 7.6 mg/dL (8.4-10.2); Carbon Dioxide 31 mmol/L (22-30); Chloride 91 mmol/L (98-107); Estimated CRCL calculation 71 ml/min; Estimated Glomerular Filt Rate > 60; Glucose 82 mg/dL (65-110); Magnesium 2.5 mg/dL (1.6-2.3); Sodium 140 mmol/L (137-145)
--- NOTE | 2021-12-11 10:02 | PCPTNOTE ---
PER OT: Spoke with hospitalist, Dr. Mccarthy, who requested therapy services wait to see pt., following up after hospitalist has seen pt. and determined appropriateness for therapy at this time. Nursing updated and aware. Following.
[2021-12-11 11:44] LABS: Glucose Point of Care 90 mg/dl (65-105)
[2021-12-11] MEDS: SODIUM CHLORIDE 0.9% IV 250 ML 30 ML IV CONT (12:05)
[2021-12-11] MEDS: TUBING, BLOOD PLUM PUMP TUBING 1 EACH XX (12:05)
--- NOTE | 2021-12-11 12:23 | WPDGIPROGNO ---
Progress Note: A&P Assessment and Plan (1) Acute respiratory failure with hypoxia: Code(s): J96.01 - Acute respiratory failure with hypoxia Status: Acute Assessment and Plan: still pulmonary edema and requiring oxygen I do not think that he is fit for EGD, I just recommend conservative treatment with iv protonix and advance diet as tolerated with aspiration precautions (he is alcoholic and also came in with pancreatitis) (2) Abnormal CT scan, esophagus: Code(s): R93.3 - Abnormal findings on diagnostic imaging of other parts of digestive tract Status: Acute Assessment and Plan: medical management no egd- patient with respiratory distress (3) Elevated liver enzymes: Code(s): R74.8 - Abnormal levels of other serum enzymes Status: Acute Assessment and Plan: alcohol related and also pancreatitis recent liver ultrasound (4) Acute on chronic anemia: Code(s): D64.9 - Anemia, unspecified Status: Acute Assessment and Plan: will get one unit prbc occult blood in stool negative probably multifactorial (5) Acute pancreatitis: Code(s): K85.90 - Acute pancreatitis without necrosis or infection, unspecified Status: Acute (6) Alcoholic ketoacidosis: Code(s): E87.2 - Acidosis Status: Acute (7) ETOH abuse: Code(s): F10.10 - Alcohol abuse, uncomplicated Status: Acute Assessment and Plan: medical support, also hypokalemia- risk for refeeding syndrome, repleting lytes and monitoring Subjective Date/time seen: 12/11/21 12:23 Interval history: he will get a unit of prbc- stool checked and negative for occult blood. He is awake but gets disoriented. Review of Systems Review of Systems: All systems reviewed & are unremarkable except as noted in HPI and below Exam Const: Other: chronically ill appearing, using oxygen HENMT: General nose exam: Normal nares present Eyes: General: appearance normal, both eyes and all related structures Neck: Neck: supple Resp: Auscultation: rhonchi and no wheezes Other: more coarse BS Cardio: Rate: regular rate GI: GI Palp: Yes Soft to palpation and No Tenderness to palpation present (GI) Auscultation: normal bowel sounds Skin: Other: bruises in arms Neuro: Speech: normal speech Other: awake and alert but gets disoriented Extrem: General: normal to inspection Psych: Affect: Anxious affect present Objective Data Vital Signs Vital Signs: Vital Signs - 24 hr 12/10/21 13:43 12/10/21 13:54 12/10/21 14:00 Temperature Pulse Rate 104 H 101 H 103 H Respiratory Rate 20 20 Blood Pressure Pulse Oximetry Oxygen Delivery Oxygen Flow Rate 12/10/21 16:50 12/10/21 16:00 12/10/21 17:13 Temperature 99.6 F Pulse Rate 110 H 103 H 113 H Respiratory Rate 18 24 H Blood Pressure 101/64 Pulse Oximetry 96 Oxygen Delivery Oxygen Flow Rate 12/10/21 16:00 12/10/21 18:00 12/10/21 19:58 Temperature Pulse Rate 118 H 104 H Respiratory Rate 28 H Blood Pressure Pulse Oximetry 93 Oxygen Delivery Nasal Cannula Oxygen Flow Rate 5 12/10/21 20:09 12/10/21 20:17 12/10/21 20:08 Temperature 98.4 F Pulse Rate 106 H 104 H Respiratory Rate 27 H 30 H Blood Pressure 99/66 L Pulse Oximetry 95 100 Oxygen Delivery Nasal Cannula Oxygen Flow Rate 4 12/10/21 20:00 12/10/21 20:00 12/10/21 22:00 Temperature Pulse Rate 108 H 99 Respiratory Rate Blood Pressure Pulse Oximetry 100 Oxygen Delivery Nasal Cannula Oxygen Flow Rate 4 12/10/21 23:16 12/11/21 00:08 12/11/21 00:19 Temperature 99.2 F Pulse Rate 99 101 H 103 H Respiratory Rate 22 H 25 H 22 H Blood Pressure 107/76 Pulse Oximetry 100 Oxygen Delivery Oxygen Flow Rate 12/11/21 00:00 12/11/21 00:00 12/11/21 02:00 Temperature Pulse Rate 98 107 H Respiratory Rate Blood Pressure Pulse Oximetry 92 Oxygen Del
[2021-12-11] MEDS: cefTRIAXone 2 GM in SODIUM CHLORIDE 0.9% IV 100 ML 200 ML IVPB (17:15)
[2021-12-11 17:59] LABS: Glucose Point of Care 105 mg/dl (65-105)
--- NOTE | 2021-12-11 18:53 | P.PNIM_ITS ---
Progress Note: A&P Assessment and Plan (1) Neuropathy: Code(s): G62.9 - Polyneuropathy, unspecified Status: Acute Assessment and Plan: * Continue home gabapentin * Trend symptoms (2) Acute pancreatitis: Code(s): K85.90 - Acute pancreatitis without necrosis or infection, unspecified Status: Acute Assessment and Plan: * Lipase elevated at 3641 * IV fluid resuscitation which will be stopped 12/09 due to congestive changes in chest x-ray * CT indicates pancreatitis likely alcoholic related. LFTs are elevated as well. gallbladder ultrasound was gallbladder sludge with mild gallbladder wall thickening. ascites and hepatic steatosis * Trend labs, including lipase which is been improving * was started on clear liquid diet but will change to NPO due to his respiratory status and risk of aspiration * WBC is 12.4 12/11/2021 interval history: patient with history of alcohol abuse presented with hypoglycemia, weakness and found to have pulmonary edema, cardiac echo is essentially normal, patient being diuresed, chest x-ray concerning of pneumonia treated with azithromycin and ceftriaxone wiil add Flagyl to cover for anaerobics, patient was seen by GI recommended EGD however patient respiratory and clinically not stable, and GI has postponed EGD, patient appears chronically, unable to provide detail history or ROS. will continue to diuresed and PT and OT to patint out of bed and in the chair, (3) Hypertension: Code(s): I10 - Essential (primary) hypertension Status: Acute Assessment and Plan: * BP is hypotensive and hence all his blood pressure medication will be held Blood pressure is improved now (4) Severe sepsis: Code(s): A41.9 - Sepsis, unspecified organism; R65.20 - Severe sepsis without septic shock Status: Acute Assessment and Plan: * Meets SIRS with tachycardiac, tachypnea, leukocytosis, acute confusion * Source of infection could be the pancreas, blood with hypoglycemia Patient endorses some cough. Treat for sepsis related to pneumonia with vancomycin and cefepime also add azithromycin for atypical coverage * Kidneys shows an CARLO * Glucose was noted to be low * Blood gas indicates metabolic acidosis * Appears the patient received 2L of fluids in the ED * IV fluid continued * Trend labs * Start on cefepime and Vanco until infection can be ruled out Also on azithromycin. * Vancomycin discontinued. Blood culture 03/19 positive for Staph epidermidis which is likely a contaminant (5) Metabolic acidosis: Code(s): E87.2 - Acidosis Status: Acute Assessment and Plan: * ABG indicates metabolic acidosis * Glucose is low Repeat ABG today with respiratory alkalosis likely due to congestive heart failure (6) Acute metabolic encephalopathy: Code(s): G93.41 - Metabolic encephalopathy Status: Acute Assessment and Plan: * Was noted to be confused * Could be from the hypoglycemia * Likely related to underlying sepsis Lactic acid is high as well * Head ct negative for acute findings * Now showing signs of alcohol withdrawal with delirium overnight. Currently alert and oriented x3. If worsens will benefit from Precedex drip in ICU due to his poor respiratory status (7) CARLO (acute kidney injury): Code(s): N17.9 - Acute kidney failure, unspecified Status: Acute Assessment and Plan: * Cr upon arrival
--- NOTE | 2021-12-11 18:53 | PM.IMPN ---
Progress Note: A&P Assessment and Plan (1) Neuropathy: Code(s): G62.9 - Polyneuropathy, unspecified Status: Acute Assessment and Plan: Continue home gabapentin Trend symptoms (2) Acute pancreatitis: Code(s): K85.90 - Acute pancreatitis without necrosis or infection, unspecified Status: Acute Assessment and Plan: Lipase elevated at 3641 IV fluid resuscitation which will be stopped 12/09 due to congestive changes in chest x-ray CT indicates pancreatitis likely alcoholic related. LFTs are elevated as well. gallbladder ultrasound was gallbladder sludge with mild gallbladder wall thickening. ascites and hepatic steatosis Trend labs, including lipase which is been improving was started on clear liquid diet but will change to NPO due to his respiratory status and risk of aspiration WBC is 12.4 12/11/2021 interval history: patient with history of alcohol abuse presented with hypoglycemia, weakness and found to have pulmonary edema, cardiac echo is essentially normal, patient being diuresed, chest x-ray concerning of pneumonia treated with azithromycin and ceftriaxone wiil add Flagyl to cover for anaerobics, patient was seen by GI recommended EGD however patient respiratory and clinically not stable, and GI has postponed EGD, patient appears chronically, unable to provide detail history or ROS. will continue to diuresed and PT and OT to patint out of bed and in the chair, (3) Hypertension: Code(s): I10 - Essential (primary) hypertension Status: Acute Assessment and Plan: BP is hypotensive and hence all his blood pressure medication will be held Blood pressure is improved now (4) Severe sepsis: Code(s): A41.9 - Sepsis, unspecified organism; R65.20 - Severe sepsis without septic shock Status: Acute Assessment and Plan: Meets SIRS with tachycardiac, tachypnea, leukocytosis, acute confusion Source of infection could be the pancreas, blood with hypoglycemia Patient endorses some cough. Treat for sepsis related to pneumonia with vancomycin and cefepime also add azithromycin for atypical coverage Kidneys shows an CARLO Glucose was noted to be low Blood gas indicates metabolic acidosis Appears the patient received 2L of fluids in the ED IV fluid continued Trend labs Start on cefepime and Vanco until infection can be ruled out Also on azithromycin. Vancomycin discontinued. Blood culture 03/19 positive for Staph epidermidis which is likely a contaminant (5) Metabolic acidosis: Code(s): E87.2 - Acidosis Status: Acute Assessment and Plan: ABG indicates metabolic acidosis Glucose is low Repeat ABG today with respiratory alkalosis likely due to congestive heart failure (6) Acute metabolic encephalopathy: Code(s): G93.41 - Metabolic encephalopathy Status: Acute Assessment and Plan: Was noted to be confused Could be from the hypoglycemia Likely related to underlying sepsis Lactic acid is high as well Head ct negative for acute findings Now showing signs of alcohol withdrawal with delirium overnight. Currently alert and oriented x3. If worsens will benefit from Precedex drip in ICU due to his poor respiratory status (7) CARLO (acute kidney injury): Code(s): N17.9 - Acute kidney failure, unspecified Status: Acute Assessment and Plan: Cr upon arrival was 1.40 Baseline appears to be <1.0 Since receiving IV fluids Cr back to baseline Continue to trend labs Avoid nephrotoxic medications (8) ETOH abuse: Code(s): F10.10 - Alcohol abuse, uncomplicated Status: Acute Assessment and Plan: States he drinks one beer a day [facility] protocol Librium and valium on board incase Trend score adjust therapy as indicated [facility] protocol has been 0. now showing signs of alcohol withdrawal Will restart C
[2021-12-11 23:34] LABS: Glucose Point of Care 101 mg/dl (65-105)
[2021-12-12] VITALS (33 sets, daily range): BP systolic 104–131; BP diastolic 72–84; PULSE 90–120; RESP 18–30; TEMP 36.6–37.6; O2SAT 90–98; BMI 19.0
[2021-12-12] MEDS: ALBUTEROL SULFATE NEB 2.5 MG/3 ML INH INHALATION ×7 (01:04→23:00)
[2021-12-12] MEDS: IPRATROPIUM BR 0.02% INH SOLN 0.5 MG/2.5 ML VIAL 1 MG INHALATION ×7 (01:04→23:00)
[2021-12-12 03:46] LABS: Hematocrit 25.5 % (42.0-52.0); Hemoglobin 8.8 g/dL (14.0-18.0); Immature Platelet Fraction Pct 4.6 % (0.9-11.2); Mean Corpuscular HGB Conc 34.5 g/dl (32-36); Mean Corpuscular Hemoglobin 34.4 pg (26-34); Mean Corpuscular Volume 99.6 fl (80-100); Mean Platelet Volume 9.4 fl (7.4-10.4); Platelet Count Result 68 k/mm3 (150-375); Red Blood Count 2.56 M/mm3 (4.6-6.20); Red Cell Distribution Width 15.1 % (11.5-14.5); White Blood Count 5.3 K/mm3 (4.5-10.0)
[2021-12-12 04:09] LABS: Alanine Aminotransferase 27 U/L (6-50); Albumin Level 4.9 g/dL (3.5-5.1); Alkaline Phosphatase 233 U/L (38-126); Anion Gap 20 mmol/L (8-16); Aspartate Amino Transferase 97 U/L (17-59); Bilirubin,Total 7.7 mg/dL (0.2-1.3); Blood Urea Nitrogen 23 mg/dL (9-20); Calcium 8.7 mg/dL (8.4-10.2); Carbon Dioxide 31 mmol/L (22-30); Chloride 88 mmol/L (98-107); Estimated CRCL calculation 64 ml/min; Estimated Glomerular Filt Rate > 60; Glucose 71 mg/dL (65-110); Lipase 479 U/L (23-300); Magnesium 1.9 mg/dL (1.6-2.3); Potassium 2.6 mmol/L (3.4-5.0); Sodium 139 mmol/L (137-145)
[2021-12-12] MEDS: KCL 40 MEQ/WATER 100 ML 100 ML 25 ML IVPB (04:44)
--- NOTE | 2021-12-12 05:37 | PC.NURSE ---
I HAVE MONITORED THE MEDICATION DISPENSING AND THE CHARTING FOR THIS PATIENT DONE BY ESTEBAN KIRBY RN LICENSE PENDING AND I AGREE WITH THE CHARTING.
[2021-12-12] MEDS: ALBUMIN HUMAN 25% 25 GM/100 ML 100 ML IVPB ×4 (05:41→23:45)
[2021-12-12] MEDS: SALINE LOCK FLUSH 10 ML IV PUSH ×5 (05:41→21:29)
[2021-12-12] MEDS: CENTRAL LINE FLUSH 10 ML IV PUSH ×3 (05:43→21:29)
[2021-12-12] MEDS: THIAMINE HCL 200 MG/2 ML VIAL 100 MG IV PUSH (08:19)
[2021-12-12] MEDS: FOLIC ACID 1 MG/0.2 ML INJ IV PUSH (08:20)
[2021-12-12] MEDS: PANTOPRAZOLE SODIUM IV 40 MG VIAL IV PUSH (08:20)
[2021-12-12] MEDS: FUROSEMIDE INJ 40 MG/4 ML VIAL IV PUSH ×2 (08:20→17:12)
[2021-12-12] MEDS: POTASSIUM CHLORIDE 20 MEQ TABLET 40 MEQ PO (08:21)
[2021-12-12] MEDS: MAGNESIUM OXIDE 400 MG TABLET PO (08:45)
[2021-12-12] MEDS: POTASSIUM CHLORIDE INJ 40 MEQ in SODIUM CHLORIDE 0.9% IV 500 ML 130 MEQ IVPB (09:27)
[2021-12-12] MEDS: DORNASE ALFA INH SOLN 1 MG/ML 2.5 ML AMP 2.5 MG INHALATION ×2 (09:32→20:14)
[2021-12-12 11:50] LABS: Glucose Point of Care 67 mg/dl (65-105)
[2021-12-12] MEDS: DEXTROSE 50% 25 GM/50 ML SYRINGE IV PUSH (11:54)
[2021-12-12 12:20] LABS: Glucose Point of Care 143 mg/dl (65-105)
[2021-12-12] MEDS: metroNIDAZOLE 500 MG/ISO 100ML 500 MG/100 ML BAG 100 MG IVPB ×2 (12:48→21:27)
--- NOTE | 2021-12-12 13:02 | WPDGIPROGNO ---
Progress Note: A&P Assessment and Plan (1) Acute respiratory failure with hypoxia: Code(s): J96.01 - Acute respiratory failure with hypoxia Status: Acute Assessment and Plan: pulmonary edema and requiring oxygen no plan for EGD given his ongoing respiratory status and risk for complications, recommend to continue with conservative treatment with iv protonix and advance diet as tolerated with aspiration precautions (he is alcoholic and also came in with pancreatitis) (2) Abnormal CT scan, esophagus: Code(s): R93.3 - Abnormal findings on diagnostic imaging of other parts of digestive tract Status: Acute Assessment and Plan: medical management no egd- patient with respiratory distress (3) Elevated liver enzymes: Code(s): R74.8 - Abnormal levels of other serum enzymes Status: Acute Assessment and Plan: alcohol related and also pancreatitis noted raising bilirubin probably also component of alcoholic hepatitis, no abdominal pain but consider mrcp to reassess pancreas/biliary system if bili keeps going up (4) Acute on chronic anemia: Code(s): D64.9 - Anemia, unspecified Status: Acute Assessment and Plan: low but stable after prbc occult blood in stool negative probably multifactorial (5) Acute pancreatitis: Code(s): K85.90 - Acute pancreatitis without necrosis or infection, unspecified Status: Acute Assessment and Plan: liquid diet but he is on aspiration precaution also poor appetite (6) Alcoholic ketoacidosis: Code(s): E87.2 - Acidosis Status: Acute Assessment and Plan: monitor (7) ETOH abuse: Code(s): F10.10 - Alcohol abuse, uncomplicated Status: Acute Assessment and Plan: medical support, also hypokalemia- risk for refeeding syndrome, repleting lytes and monitoring Subjective Date/time seen: 12/12/21 13:02 Interval history: poor appetite, patient denies abdominal pain Review of Systems Review of Systems: All systems reviewed & are unremarkable except as noted in HPI and below Exam Const: Other: chronically ill appearing, using oxygen HENMT: General nose exam: Normal nares present Eyes: General: appearance normal, both eyes and all related structures Neck: Neck: supple Resp: Auscultation: rhonchi and no wheezes Cardio: Rate: regular rate GI: GI Palp: Yes Soft to palpation and No Tenderness to palpation present (GI) Auscultation: normal bowel sounds Skin: Other: bruises in arms Neuro: Speech: normal speech Other: awake and alert but gets disoriented Extrem: General: normal to inspection Psych: Affect: Anxious affect present Objective Data Vital Signs Vital Signs: Vital Signs - 24 hr 12/11/21 13:13 12/11/21 13:13 12/11/21 13:20 Temperature 98 F Pulse Rate 97 97 Respiratory Rate 22 H 18 Blood Pressure 112/74 Pulse Oximetry 95 100 Oxygen Delivery Nasal Cannula Oxygen Flow Rate 4 12/11/21 14:00 12/11/21 14:22 12/11/21 15:25 Temperature 98.1 F Pulse Rate 100 100 98 Respiratory Rate 20 22 H Blood Pressure 117/80 Pulse Oximetry 94 Oxygen Delivery Oxygen Flow Rate 12/11/21 15:35 12/11/21 16:25 12/11/21 16:00 Temperature 99.1 F Pulse Rate 95 105 H Respiratory Rate 22 H 18 Blood Pressure 121/68 Pulse Oximetry 94 96 Oxygen Delivery High Flow Nasal Cannula Oxygen Flow Rate 5 12/11/21 16:00 12/11/21 18:00 12/11/21 20:00 Temperature 99.3 F Pulse Rate 98 112 H 106 H Respiratory Rate 22 H Blood Pressure 112/70 Pulse Oximetry 97 Oxygen Delivery Oxygen Flow Rate 12/11/21 20:55 12/11/21 21:06 12/11/21 21:21 Temperature Pulse Rate 108 H 109 H Respiratory Rate 22 H 22 H Blood Pressure Pulse Oximetry 95 Oxygen Delivery Nasal Cannula Oxygen Flow Rate 5 12/11/21 23:14 12/11/21 20:00 12/11/21 20:00 Temperature 98.2 F Pulse Rate 109 H 103 H Respiratory R
--- NOTE | 2021-12-12 14:10 | PC.NURSE ---
On 12/12/21, the student, [Charity Milton], provided care and completed [facility] documentation on this patient. I have reviewed the student's documentation and agree with the findings.
--- NOTE | 2021-12-12 14:37 | PCNSR ---
On 12/12/21, the student,Nicolas Herrera, provided care and completed [facility] documentation on this patient. I have reviewed the student's documentation and agree with the findings.
[2021-12-12 15:59] LABS: Anion Gap 24 mmol/L (8-16); Blood Urea Nitrogen 24 mg/dL (9-20); Calcium 8.6 mg/dL (8.4-10.2); Carbon Dioxide 25 mmol/L (22-30); Chloride 94 mmol/L (98-107); Estimated CRCL calculation 71 ml/min; Estimated Glomerular Filt Rate > 60; Glucose 76 mg/dL (65-110); Magnesium 1.6 mg/dL (1.6-2.3); Potassium 3.2 mmol/L (3.4-5.0); Sodium 143 mmol/L (137-145)
--- NOTE | 2021-12-12 16:24 | P.PNIM_ITS ---
Progress Note: A&P Assessment and Plan (1) Neuropathy: Code(s): G62.9 - Polyneuropathy, unspecified Status: Acute Assessment and Plan: * Continue home gabapentin * Trend symptoms (2) Acute pancreatitis: Code(s): K85.90 - Acute pancreatitis without necrosis or infection, unspecified Status: Acute Assessment and Plan: * Lipase elevated at 3641 * IV fluid resuscitation which will be stopped 12/09 due to congestive changes in chest x-ray * CT indicates pancreatitis likely alcoholic related. LFTs are elevated as well. gallbladder ultrasound was gallbladder sludge with mild gallbladder wall thickening. ascites and hepatic steatosis * Trend labs, including lipase which is been improving * was started on clear liquid diet but will change to NPO due to his respiratory status and risk of aspiration * WBC is 12.4 12/12/2021 interval history: patient with history of alcohol abuse presented with hypoglycemia, weakness and found to have pulmonary edema, cardiac echo is essentially normal, patient being diuresed, chest x-ray concerning of pneumonia treated with azithromycin and ceftriaxone added Flagyl to cover for anaerobics, patient was seen by GI recommended EGD however patient respiratory and clinically not stable, and GI has postponed EGD, patient appears chronically, unable to provide detail history or ROS. patient presented with alcohol levels of 105 on 12/06 so far he has not any sign of DT, will continue to diuresed and PT and OT to patient out of bed and in the chair, (3) Hypertension: Code(s): I10 - Essential (primary) hypertension Status: Acute Assessment and Plan: * BP is hypotensive and hence all his blood pressure medication will be held Blood pressure is improved now (4) Severe sepsis: Code(s): A41.9 - Sepsis, unspecified organism; R65.20 - Severe sepsis without septic shock Status: Acute Assessment and Plan: * Meets SIRS with tachycardiac, tachypnea, leukocytosis, acute confusion * Source of infection could be the pancreas, blood with hypoglycemia Patient endorses some cough. Treat for sepsis related to pneumonia with vancomycin and cefepime also add azithromycin for atypical coverage * Kidneys shows an CARLO * Glucose was noted to be low * Blood gas indicates metabolic acidosis * Appears the patient received 2L of fluids in the ED * IV fluid continued * Trend labs * Start on cefepime and Vanco until infection can be ruled out Also on azithromycin. * Vancomycin discontinued. Blood culture 03/19 positive for Staph epidermidis which is likely a contaminant (5) Metabolic acidosis: Code(s): E87.2 - Acidosis Status: Acute Assessment and Plan: * ABG indicates metabolic acidosis * Glucose is low Repeat ABG today with respiratory alkalosis likely due to congestive heart failure (6) Acute metabolic encephalopathy: Code(s): G93.41 - Metabolic encephalopathy Status: Acute Assessment and Plan: * Was noted to be confused * Could be from the hypoglycemia * Likely related to underlying sepsis Lactic acid is high as well * Head ct negative for acute findings * Now showing signs of alcohol withdrawal with delirium overnight. Currently alert and oriented x3. If worsens will benefit from Precedex drip in ICU due to his poor respiratory status (7) CARLO (acute kidney injury): Code(s): N17.9 - Acute kidney failure, unspecified
--- NOTE | 2021-12-12 16:24 | PM.IMPN ---
Progress Note: A&P Assessment and Plan (1) Neuropathy: Code(s): G62.9 - Polyneuropathy, unspecified Status: Acute Assessment and Plan: Continue home gabapentin Trend symptoms (2) Acute pancreatitis: Code(s): K85.90 - Acute pancreatitis without necrosis or infection, unspecified Status: Acute Assessment and Plan: Lipase elevated at 3641 IV fluid resuscitation which will be stopped 12/09 due to congestive changes in chest x-ray CT indicates pancreatitis likely alcoholic related. LFTs are elevated as well. gallbladder ultrasound was gallbladder sludge with mild gallbladder wall thickening. ascites and hepatic steatosis Trend labs, including lipase which is been improving was started on clear liquid diet but will change to NPO due to his respiratory status and risk of aspiration WBC is 12.4 12/12/2021 interval history: patient with history of alcohol abuse presented with hypoglycemia, weakness and found to have pulmonary edema, cardiac echo is essentially normal, patient being diuresed, chest x-ray concerning of pneumonia treated with azithromycin and ceftriaxone added Flagyl to cover for anaerobics, patient was seen by GI recommended EGD however patient respiratory and clinically not stable, and GI has postponed EGD, patient appears chronically, unable to provide detail history or ROS. patient presented with alcohol levels of 105 on 12/06 so far he has not any sign of DT, will continue to diuresed and PT and OT to patient out of bed and in the chair, (3) Hypertension: Code(s): I10 - Essential (primary) hypertension Status: Acute Assessment and Plan: BP is hypotensive and hence all his blood pressure medication will be held Blood pressure is improved now (4) Severe sepsis: Code(s): A41.9 - Sepsis, unspecified organism; R65.20 - Severe sepsis without septic shock Status: Acute Assessment and Plan: Meets SIRS with tachycardiac, tachypnea, leukocytosis, acute confusion Source of infection could be the pancreas, blood with hypoglycemia Patient endorses some cough. Treat for sepsis related to pneumonia with vancomycin and cefepime also add azithromycin for atypical coverage Kidneys shows an CARLO Glucose was noted to be low Blood gas indicates metabolic acidosis Appears the patient received 2L of fluids in the ED IV fluid continued Trend labs Start on cefepime and Vanco until infection can be ruled out Also on azithromycin. Vancomycin discontinued. Blood culture 03/19 positive for Staph epidermidis which is likely a contaminant (5) Metabolic acidosis: Code(s): E87.2 - Acidosis Status: Acute Assessment and Plan: ABG indicates metabolic acidosis Glucose is low Repeat ABG today with respiratory alkalosis likely due to congestive heart failure (6) Acute metabolic encephalopathy: Code(s): G93.41 - Metabolic encephalopathy Status: Acute Assessment and Plan: Was noted to be confused Could be from the hypoglycemia Likely related to underlying sepsis Lactic acid is high as well Head ct negative for acute findings Now showing signs of alcohol withdrawal with delirium overnight. Currently alert and oriented x3. If worsens will benefit from Precedex drip in ICU due to his poor respiratory status (7) CARLO (acute kidney injury): Code(s): N17.9 - Acute kidney failure, unspecified Status: Acute Assessment and Plan: Cr upon arrival was 1.40 Baseline appears to be <1.0 Since receiving IV fluids Cr back to baseline Continue to trend labs Avoid nephrotoxic medications (8) ETOH abuse: Code(s): F10.10 - Alcohol abuse, uncomplicated Status: Acute Assessment and Plan: States he drinks one beer a day [facility] protocol Librium and valium on board incase Trend score adjust therapy as indicated
[2021-12-12] MEDS: cefTRIAXone 2 GM in SODIUM CHLORIDE 0.9% IV 100 ML 200 ML IVPB (17:12)
[2021-12-12 18:03] LABS: Glucose Point of Care 91 mg/dl (65-105)
[2021-12-12] MEDS: OLANZapine 10 MG INJ VIAL 5 MG IM (22:34)
[2021-12-12 23:03] LABS: Glucose Point of Care 81 mg/dl (65-105)
[2021-12-13] VITALS (55 sets, daily range): BP systolic 35–127; BP diastolic 21–92; PULSE 60–122; RESP 17–40; TEMP 36.5–37.8; O2SAT 80–100; BMI 18.8
[2021-12-13] MEDS: IPRATROPIUM BR 0.02% INH SOLN 0.5 MG/2.5 ML VIAL 1 MG INHALATION ×5 (03:01→20:07)
[2021-12-13] MEDS: ALBUTEROL SULFATE NEB 2.5 MG/3 ML INH INHALATION ×5 (03:01→20:07)
[2021-12-13] MEDS: metroNIDAZOLE 500 MG/ISO 100ML 500 MG/100 ML BAG 100 MG IVPB ×3 (04:06→20:30)
[2021-12-13 05:27] LABS: Hematocrit 23.8 % (42.0-52.0); Hemoglobin 8.2 g/dL (14.0-18.0); Immature Platelet Fraction Pct 6.2 % (0.9-11.2); Mean Corpuscular HGB Conc 34.5 g/dl (32-36); Mean Corpuscular Hemoglobin 35.2 pg (26-34); Mean Corpuscular Volume 102.1 fl (80-100); Mean Platelet Volume 10.5 fl (7.4-10.4); Platelet Count Result 56 k/mm3 (150-375); Red Blood Count 2.33 M/mm3 (4.6-6.20); Red Cell Distribution Width 15.6 % (11.5-14.5)
[2021-12-13 05:33] LABS: Alanine Aminotransferase 23 U/L (6-50); Albumin Level 4.9 g/dL (3.5-5.1); Alkaline Phosphatase 139 U/L (38-126); Anion Gap 22 mmol/L (8-16); Aspartate Amino Transferase 66 U/L (17-59); Bilirubin,Total 9.1 mg/dL (0.2-1.3); Blood Urea Nitrogen 31 mg/dL (9-20); Carbon Dioxide 32 mmol/L (22-30); Chloride 93 mmol/L (98-107); Estimated CRCL calculation 64 ml/min; Estimated Glomerular Filt Rate > 60; Glucose 68 mg/dL (65-110); Lipase 290 U/L (23-300); Magnesium 1.7 mg/dL (1.6-2.3); Potassium 3.5 mmol/L (3.4-5.0); Sodium 147 mmol/L (137-145)
--- NOTE | 2021-12-13 05:53 | PC.NURSE ---
I HAVE MONITORED THE MEDICATION DISPENSING AND CHARTING DONE BY ESTEBAN KIRBY RN LICENSE PENDING AND I AGREE WITH EVERYTHING.
[2021-12-13] MEDS: ALBUMIN HUMAN 25% 25 GM/100 ML 100 ML IVPB (06:00)
[2021-12-13] MEDS: CENTRAL LINE FLUSH 10 ML IV PUSH ×2 (06:18→15:33)
[2021-12-13] MEDS: SALINE LOCK FLUSH 10 ML IV PUSH ×3 (06:18→20:38)
[2021-12-13] MEDS: DORNASE ALFA INH SOLN 1 MG/ML 2.5 ML AMP 2.5 MG INHALATION ×2 (08:05→20:07)
[2021-12-13] MEDS: FOLIC ACID 1 MG/0.2 ML INJ IV PUSH (09:40)
[2021-12-13] MEDS: THIAMINE HCL 200 MG/2 ML VIAL 100 MG IV PUSH (09:41)
[2021-12-13] MEDS: FUROSEMIDE INJ 40 MG/4 ML VIAL IV PUSH (09:41)
[2021-12-13] MEDS: PANTOPRAZOLE SODIUM IV 40 MG VIAL IV PUSH ×2 (09:43→20:38)
[2021-12-13] MEDS: MAGNESIUM SULF 1 GM/D5W 100 ML 1 GM/100 ML BAG IVPB (10:53)
[2021-12-13] MEDS: KCL 40 MEQ/WATER 100 ML 100 ML 25 ML IVPB ×2 (10:53→16:33)
--- NOTE | 2021-12-13 11:13 | WPDGIPROGNO ---
Progress Note: A&P Assessment and Plan (1) Acute respiratory failure with hypoxia: Code(s): J96.01 - Acute respiratory failure with hypoxia Status: Acute Assessment and Plan: again more confusion then more respiratory distress- may go to icu for close monitoring no plan for EGD given his ongoing respiratory status and risk for complications, recommend to continue with conservative treatment with iv protonix (2) Abnormal CT scan, esophagus: Code(s): R93.3 - Abnormal findings on diagnostic imaging of other parts of digestive tract Status: Acute Assessment and Plan: medical management no egd- patient with respiratory distress (3) Alcoholic hepatitis: Code(s): K70.10 - Alcoholic hepatitis without ascites Status: Acute Assessment and Plan: noted raising bilirubin, also complicated with pancreatitis on admission and failure to thrive/confusion will repeat ruq ultrasound to check if developing pseudocyst or other complications since bilirubin is going up repeat labs in am and will add INR to calculate Maddrey discriminant function prognosis is guarded (4) Elevated liver enzymes: Code(s): R74.8 - Abnormal levels of other serum enzymes Status: Acute Assessment and Plan: alcohol related and also pancreatitis noted raising bilirubin probably also component of alcoholic hepatitis, no abdominal pain but consider mrcp to reassess pancreas/biliary system if bili keeps going up (5) Acute on chronic anemia: Code(s): D64.9 - Anemia, unspecified Status: Acute Assessment and Plan: low but stable after prbc occult blood in stool negative probably multifactorial (6) Acute pancreatitis: Code(s): K85.90 - Acute pancreatitis without necrosis or infection, unspecified Status: Acute Assessment and Plan: liquid diet but he is on aspiration precaution and also more confused now- will need speech evaluation and probably DHT for nutrition also poor appetite (7) ETOH abuse: Code(s): F10.10 - Alcohol abuse, uncomplicated Status: Acute Assessment and Plan: medical support, also hypokalemia- risk for refeeding syndrome, repleting lytes and monitoring Subjective Date/time seen: 12/13/21 11:13 Interval history: more delirious overnight and required zyprexa, lethargic now and requiring oxygen, also noted raising bili Review of Systems Review of Systems: All systems reviewed & are unremarkable except as noted in HPI and below Exam Const: Other: acutely ill appearing, using oxygen, cachectic HENMT: General nose exam: Normal nares present Eyes: General: appearance normal, both eyes and all related structures Neck: Neck: supple Resp: Auscultation: rales, rhonchi and diminished lung sounds Cardio: Rate: regular rate GI: GI Palp: Yes Soft to palpation and No Tenderness to palpation present (GI) Auscultation: normal bowel sounds Skin: Other: bruises in arms Neuro: Other: less responsive and lethargic Extrem: General: normal to inspection Psych: Affect: Anxious affect present Objective Data Vital Signs Vital Signs: Vital Signs - 24 hr 12/12/21 12:00 12/12/21 12:05 12/12/21 12:18 Temperature Pulse Rate 100 111 H Respiratory Rate 28 H 28 H Blood Pressure Pulse Oximetry 98 Oxygen Delivery High Flow Therapy with Na Oxygen Flow Rate 7 Fraction of Inspired Oxygen 12/12/21 12:35 12/12/21 12:08 12/12/21 12:00 Temperature 97.8 F Pulse Rate 111 H 105 H Respiratory Rate 22 H Blood Pressure 109/78 Pulse Oximetry 90 Oxygen Delivery High Flow Therapy with Na Oxygen Flow Rate 6 Fraction of Inspired Oxygen 12/12/21 14:00 12/12/21 14:00 12/12/21 16:22 Temperature 99.4 F Pulse Rate 111 H 104 H 112 H Respiratory Rate 20 Blood Pressure 123/84 Pulse Oximetry 94 94 Oxygen Delivery High Flow Therapy with Na Oxygen Flow Rate 50 Fraction of Ins
[2021-12-13] MEDS: ETOMIDATE 20 MG/10 ML AMPUL IV PUSH (11:26)
[2021-12-13] MEDS: ROCURONIUM BROMIDE 50 MG/5 ML VIAL IV PUSH (11:27)
[2021-12-13] MEDS: SODIUM CHLORIDE 0.9% IV 500 ML 999 ML (11:30)
[2021-12-13] MEDS: NOREPINEPHRINE 8 MG/D5W 250 ML 8 MG/250 ML BAG 56.25 MG IV CONT (11:35)
--- NOTE | 2021-12-13 11:50 | WPDPROCEDUR ---
Procedures Intubation Intubation Date: 12/13/21 Intubation Time: 11:40 Consent: Emergent intubation for impending respiratory failure, I will try to call his nephew Jet and his friend Faraz whose numbers on in the chart but no one was available. Sedative: etomidate Paralytic: rocuronium Laryngoscope: fiber optic video scope Assist device used: fiber optic device ET tube size: 8 Tube secured depth (cm): 24 Tube secured location: lips Tube placement confirmation: visualized tube passing through cords, equal breath sounds bilaterally, no breath sounds over epigastrium and confirmation by capnometry Patient tolerated procedure: well and no complications Intubation complications: none
--- NOTE | 2021-12-13 11:56 | PCPTNOTE ---
Patient treatment held for today due to change in status. The pt was moved from room 232 to ICU.
--- NOTE | 2021-12-13 12:23 | WPDCNINT ---
Assessment and Plan Assessment and plan (1) Acute respiratory failure with hypoxia: Code(s): J96.01 - Acute respiratory failure with hypoxia Status: Acute Assessment and Plan: Patient with increasing oxygen requirements due to the course of stay in the hospital -I was asked to evaluate the patient in the intermediate Unit on 12/13/2021. Patient was on Airvo/high-flow therapy, 80 % FiO2 60 L flow rate, patient was somnolent with altered mental status, tachypneic, using accessory muscles of respiration -decided to intubate the patient secondary to impending respiratory failure and worsening chest x-ray -patient was intubated on 12/13/2021, intubation was uneventful -chest x-ray reviewed -ABGs has been ordered -started patient on vanc, cefepime (12/13), continue Flagyl -continue bronchodilators -says currently of sedation, if he starts waking up will add low-dose Versed and fentanyl infusion to maintain RASS of 0 to -1 (2) Septic shock: Code(s): A41.9 - Sepsis, unspecified organism; R65.21 - Severe sepsis with septic shock Status: Acute Assessment and Plan: Patient dropped his pressures post intubation, likely related to positive pressure ventilation, decreased adrenergic surge -started on Levophed, maintained MAP > 65 mmHg -was being diuresed aggressively which could also have led to low blood pressures -urine output has been adequate will continue to monitor -obtain lactic acid -continue antibiotics as above (3) Pneumonia: Code(s): J18.9 - Pneumonia, unspecified organism Status: Acute Assessment and Plan: Chest x-ray reviewed, likely bilateral pneumonia -will obtain CTs chest (4) Alcoholic hepatitis: Code(s): K70.10 - Alcoholic hepatitis without ascites Status: Acute Assessment and Plan: Patient has a history of alcoholic hepatitis -LFTs and bilirubin elevated -obtain CT abdomen and pelvis -GI following the patient (5) Acute on chronic anemia: Code(s): D64.9 - Anemia, unspecified Status: Acute Assessment and Plan: Acute anemia, status post 1 unit of packed RBCs on 12/11 -hemoglobin has been stable but low -stool for occult blood is negative -appreciate GI evaluation and recommendations -now that patient is intubated they may be able to perform an EGD (6) Metabolic acidosis: Code(s): E87.2 - Acidosis Status: Acute Assessment and Plan: Anion gap metabolic acidosis likely related to ketoacidosis from alcoholism -blood sugars have been stable -patient is not uremic (7) Acute pancreatitis: Code(s): K85.90 - Acute pancreatitis without necrosis or infection, unspecified Status: Acute Assessment and Plan: Patient with acute pancreatitis on admission with elevated lipase levels -patient was treated with IV fluids, lipase levels trending down (8) Thrombocytopenia: Code(s): D69.6 - Thrombocytopenia, unspecified Status: Acute Assessment and Plan: Likely related to alcoholic hepatitis, alcoholism -CT scan of the abdomen and pelvis to see if there is any hepatosplenomegaly to explain thrombocytopenia -this could be also consumptive secondary to anemia -no acute bleeding at this time noted -continue to monitor Plan DVT prophylaxis: SCDs, no chemoprophylaxis due to thrombocytopenia and anemia Stress ulcer prophylaxis: Will increase Protonix IV to q.12 hours Nutrition: NPO for now Code Status: Full code Critical Care Time Spent: 51 minutes Due to a high probability of clinically significant, life threatening deterioration, the patient required my highest level of preparedness to intervene emergently and I personally spent this critical care time directly and personally managing the patient. This critical care time included obtaining a history; examining the patient; pulse oximetry; ordering and review of studies; arranging urgent treatment with development of a management plan; evaluatio
[2021-12-13] MEDS: FENTANYL 2,500MCG/NS250ML(*CRX 2,500 MCG/250 ML BAG IV CONT (13:35)
[2021-12-13] MEDS: MIDAZOLAM 100MG/NS 100ML(*CRX) 100 MG/100 ML BAG IV CONT (13:36)
[2021-12-13 13:43] LABS: Base Excess ABG 2.1 mEq/l (+/-2.0); PCO2 ABG 32.3 mmHg (35.0-45.0); PO2 ABG 217.1 mmHg (80.0-100.0); pH ABG 7.506 (7.350-7.450)
[2021-12-13 13:44] LABS: Oxygen Saturation ABG 99.5 % (95.0-100.0); Total Hemoglobin 9.6 g/dL (12.0-18.0)
[2021-12-13 13:44] LABS: Basophils Percent Auto 0.5 % (0.2-1.2); Eosinophils Percent Auto 0.1 % (0-4.4); Hematocrit 25.7 % (42.0-52.0); Hemoglobin 8.6 g/dL (14.0-18.0); Immature Granulocyte Absolute 0.09 K/mm3 (0.00-0.031); Immature Platelet Fraction Pct 4.5 % (0.9-11.2); Lymphocytes Absolute Auto 0.51 K/mm3 (0.9-3.2); Lymphocytes Percent Auto 5.8 % (18.3-44.2); Mean Corpuscular HGB Conc 33.5 g/dl (32-36); Mean Corpuscular Hemoglobin 34.8 pg (26-34); Mean Platelet Volume 10.3 fl (7.4-10.4); Monocytes Absolute Auto 0.5 K/mm3 (0.1-0.6); Monocytes Percent Auto 5.2 % (2.6-8.5); Neutrophils Absolute Auto 7.7 K/mm3 (1.3-6.7); Neutrophils Percent Auto 87.4 % (45.5-73.1); Nucleated Red Blood Cells Perc 0.2 % (0.0-0.2); Platelet Count Result 61 k/mm3 (150-375); Red Blood Count 2.47 M/mm3 (4.6-6.20); Red Cell Distribution Width 15.7 % (11.5-14.5); White Blood Count 8.8 K/mm3 (4.5-10.0)
[2021-12-13 13:45] LABS: Alveolar/Arterial O2 Gradient 463.6 mmHg; Oxygen Content ABG 13.7 %vol (16.0-22.0); Oxyhemoglobin 97.9 % THb (90.0-100.0)
[2021-12-13 13:46] LABS: Device VENTILATOR; Fractional Inspired Oxygen 100 %; Modified Allen's Test Pass; PO2 FiO2 Ratio Arterial Blood 2.17 %; Site Drawn RIGHT RADIAL
[2021-12-13 13:47] LABS: Arterial Blood Gas Ventilator rate 22 /MIN
[2021-12-13 13:48] LABS: Arterial Blood Gas PEEP 5 cmH2O; Arterial Blood Gas Pressure Support 0 cmH2O; Arterial Blood Gas Tidal Volume 450 ml; Arterial Blood Gas Vent Mode CMV
[2021-12-13 13:51] LABS: Lactic Acid Reflex 3.8 mmol/L (0.7-2.0)
[2021-12-13 13:52] LABS: Ammonia < 9 umol/L (9-30)
[2021-12-13 13:56] LABS: Alanine Aminotransferase 22 U/L (6-50); Albumin Level 5.1 g/dL (3.5-5.1); Alkaline Phosphatase 152 U/L (38-126); Anion Gap 28 mmol/L (8-16); Aspartate Amino Transferase 71 U/L (17-59); Bilirubin,Total 10.1 mg/dL (0.2-1.3); Blood Urea Nitrogen 36 mg/dL (9-20); Calcium 9.1 mg/dL (8.4-10.2); Carbon Dioxide 25 mmol/L (22-30); Chloride 95 mmol/L (98-107); Creatine Kinase 33 U/L (55-170); Estimated CRCL calculation 53 ml/min; Estimated Glomerular Filt Rate > 60; Glucose 84 mg/dL (65-110); Lipase 251 U/L (23-300); Magnesium 1.7 mg/dL (1.6-2.3); Phosphorus 2.5 mg/dL (2.5-4.5); Sodium 148 mmol/L (137-145)
--- NOTE | 2021-12-13 14:06 | PCDIET ---
Patient transferred to ICU and intubated today. Tube feeding recommendations: Vital AF 1.2 at 20 ml/hr advance by 10 ml q 4 hours to goal rate of 65 ml/hr. Goal rate of tube feeding providing, 1716 kcals/107 gms protein/1160 ml water. Free water flush 30 ml q 4 hours. Will continue to monitor in ICU rounds and reassessing every Thursday and Thursday.
--- NOTE | 2021-12-13 14:11 | PC.NURSE ---
This patient, Omega Hardwick, was transferred to [ICU-3 ] on 12/13/21 at 0915. Personal belongings sent with patient. Report given to [Rickey ]. Appropriate documentation sent with patient.
[2021-12-13 14:15] LABS: CRP 18.7 mg/dL (<1.0)
--- NOTE | 2021-12-13 14:19 | P.PNIM_ITS ---
Progress Note: A&P Assessment and Plan (1) Neuropathy: Code(s): G62.9 - Polyneuropathy, unspecified Status: Acute Assessment and Plan: * Continue home gabapentin * Trend symptoms (2) Acute pancreatitis: Code(s): K85.90 - Acute pancreatitis without necrosis or infection, unspecified Status: Acute Assessment and Plan: * Lipase elevated at 3641 * IV fluid resuscitation which will be stopped 12/09 due to congestive changes in chest x-ray * CT indicates pancreatitis likely alcoholic related. LFTs are elevated as well. gallbladder ultrasound was gallbladder sludge with mild gallbladder wall thickening. ascites and hepatic steatosis * Trend labs, including lipase which is been improving * was started on clear liquid diet but will change to NPO due to his respiratory status and risk of aspiration * WBC is 12.4 12/13/2021 interval history: patient with history of alcohol abuse presented with hypoglycemia, weakness and found to have pulmonary edema, cardiac echo is essentially normal, patient being diuresed, chest x-ray concerning of pneumonia treated with azithromycin and ceftriaxone added Flagyl to cover for anaerobics, patient was seen by GI recommended EGD however patient respiratory and clinically not stable, and GI has postponed EGD, patient appears chronically, unable to provide detail history or ROS. patient presented with alcohol levels of 105 on 12/06 so far he has not any sign of DT, however today patient symptoms have worsen, he is obtunded, has labor breathing, was seen by finishing room supervisor, evaluated the patient and recommended patient needs to be placed on ventilator, will transfer the patient to ICU, appreciate finishing room supervisor, will monitor and follow the patient in ICU. (3) Hypertension: Code(s): I10 - Essential (primary) hypertension Status: Acute Assessment and Plan: * BP is hypotensive and hence all his blood pressure medication will be held Blood pressure is improved now (4) Severe sepsis: Code(s): A41.9 - Sepsis, unspecified organism; R65.20 - Severe sepsis without septic shock Status: Acute Assessment and Plan: * Meets SIRS with tachycardiac, tachypnea, leukocytosis, acute confusion * Source of infection could be the pancreas, blood with hypoglycemia Patient endorses some cough. Treat for sepsis related to pneumonia with vancomycin and cefepime also add azithromycin for atypical coverage * Kidneys shows an CARLO * Glucose was noted to be low * Blood gas indicates metabolic acidosis * Appears the patient received 2L of fluids in the ED * IV fluid continued * Trend labs * Start on cefepime and Vanco until infection can be ruled out Also on azithromycin. * Vancomycin discontinued. Blood culture 1/ positive for Staph epidermidis which is likely a contaminant (5) Metabolic acidosis: Code(s): E87.2 - Acidosis Status: Acute Assessment and Plan: * ABG indicates metabolic acidosis * Glucose is low Repeat ABG today with respiratory alkalosis likely due to congestive heart failure (6) Acute metabolic encephalopathy: Code(s): G93.41 - Metabolic encephalopathy Status: Acute Assessment and Plan: * Was noted to be confused * Could be from the hypoglycemia * Likely related to underlying sepsis Lactic acid is high as well * Head ct negative for acute findings * Now showing signs of alcohol withdrawal with delirium overnight. Currently alert and oriented x3. If worsens wi
--- NOTE | 2021-12-13 14:19 | PM.IMPN ---
Progress Note: A&P Assessment and Plan (1) Neuropathy: Code(s): G62.9 - Polyneuropathy, unspecified Status: Acute Assessment and Plan: Continue home gabapentin Trend symptoms (2) Acute pancreatitis: Code(s): K85.90 - Acute pancreatitis without necrosis or infection, unspecified Status: Acute Assessment and Plan: Lipase elevated at 3641 IV fluid resuscitation which will be stopped 12/09 due to congestive changes in chest x-ray CT indicates pancreatitis likely alcoholic related. LFTs are elevated as well. gallbladder ultrasound was gallbladder sludge with mild gallbladder wall thickening. ascites and hepatic steatosis Trend labs, including lipase which is been improving was started on clear liquid diet but will change to NPO due to his respiratory status and risk of aspiration WBC is 12.4 12/13/2021 interval history: patient with history of alcohol abuse presented with hypoglycemia, weakness and found to have pulmonary edema, cardiac echo is essentially normal, patient being diuresed, chest x-ray concerning of pneumonia treated with azithromycin and ceftriaxone added Flagyl to cover for anaerobics, patient was seen by GI recommended EGD however patient respiratory and clinically not stable, and GI has postponed EGD, patient appears chronically, unable to provide detail history or ROS. patient presented with alcohol levels of 105 on 12/06 so far he has not any sign of DT, however today patient symptoms have worsen, he is obtunded, has labor breathing, was seen by company secretary, evaluated the patient and recommended patient needs to be placed on ventilator, will transfer the patient to ICU, appreciate company secretary, will monitor and follow the patient in ICU. (3) Hypertension: Code(s): I10 - Essential (primary) hypertension Status: Acute Assessment and Plan: BP is hypotensive and hence all his blood pressure medication will be held Blood pressure is improved now (4) Severe sepsis: Code(s): A41.9 - Sepsis, unspecified organism; R65.20 - Severe sepsis without septic shock Status: Acute Assessment and Plan: Meets SIRS with tachycardiac, tachypnea, leukocytosis, acute confusion Source of infection could be the pancreas, blood with hypoglycemia Patient endorses some cough. Treat for sepsis related to pneumonia with vancomycin and cefepime also add azithromycin for atypical coverage Kidneys shows an CARLO Glucose was noted to be low Blood gas indicates metabolic acidosis Appears the patient received 2L of fluids in the ED IV fluid continued Trend labs Start on cefepime and Vanco until infection can be ruled out Also on azithromycin. Vancomycin discontinued. Blood culture 1/ positive for Staph epidermidis which is likely a contaminant (5) Metabolic acidosis: Code(s): E87.2 - Acidosis Status: Acute Assessment and Plan: ABG indicates metabolic acidosis Glucose is low Repeat ABG today with respiratory alkalosis likely due to congestive heart failure (6) Acute metabolic encephalopathy: Code(s): G93.41 - Metabolic encephalopathy Status: Acute Assessment and Plan: Was noted to be confused Could be from the hypoglycemia Likely related to underlying sepsis Lactic acid is high as well Head ct negative for acute findings Now showing signs of alcohol withdrawal with delirium overnight. Currently alert and oriented x3. If worsens will benefit from Precedex drip in ICU due to his poor respiratory status (7) CARLO (acute kidney injury): Code(s): N17.9 - Acute kidney failure, unspecified Status: Acute Assessment and Plan: Cr upon arrival was 1.40 Baseline appears to be <1.0 Since receiving IV fluids Cr back to baseline Continue to trend labs Avoid nephrotoxic medications (8) ETOH abuse: Code(s): F10.10 - Alcohol
[2021-12-13 14:32] LABS: INR 1.7; Prothrombin Time 19.4 Seconds (11.1-14.7)
[2021-12-13 14:33] LABS: Partial Thromboplastin Time 39.7 SECONDS (22.3-36.8)
[2021-12-13 15:41] LABS: Appearance Urine Slightly Cloudy (Clear); Bilirubin Urine 1+ (Negative); Blood Urine Trace-intact (Negative); Color Urine Yellow (Yellow); Glucose Urine UA Negative (Negative); Ketones Urine Trace mg/dL (Negative); Leukocyte Esterase Ur Negative LEU/UL (NEGATIVE); Nitrate Urine Negative (Negative); Protein Urine 1+ mg/dL (Negative); Urobilinogen Urine 0.2 mg/dL (<2.0); pH Urine 6.5 (5.0-9.0)
[2021-12-13 15:45] LABS: Bacteria Urine Trace /hpf; WBC Urine 0-3 /hpf (0-3)
[2021-12-13 15:46] LABS: Add Urine Microscopic? YES
[2021-12-13 16:39] LABS: Reflex Lactic Acid Yes or No Add Lactic
[2021-12-13] MEDS: LACTATED RINGERS 500 ML 999 ML IV CONT (16:58)
--- NOTE | 2021-12-13 17:11 | PCOTNOTE ---
Pt. discharged from therapy services on this date due to change in medical status. Pt. unable to safely participate at this time. Re-order therapy services when pt. able to participate safely
[2021-12-13 17:27] LABS: Lactic Acid 4.5 mmol/L (0.7-2.0)
[2021-12-13 17:49] LABS: Glucose Point of Care 68 mg/dl (65-105)
[2021-12-13] MEDS: DEXTROSE 5%/0.45% SOD CHL 1,000 ML 50 ML IV CONT (18:09)
[2021-12-13] MEDS: LACTATED RINGERS 1,000 ML 999 ML IV CONT (18:13)
[2021-12-13] MEDS: MINERAL OIL/WHITE PETROLATUM OINTMENT 1 APPLIC EACH EYE (20:38)
[2021-12-13 21:06] LABS: Glucose Point of Care 98 mg/dl (65-105)
[2021-12-14] VITALS (61 sets, daily range): BP systolic 78–134; BP diastolic 65–91; PULSE 81–117; RESP 18–21; TEMP 36.2–38.2; O2SAT 92–100
[2021-12-14] MEDS: ALBUTEROL SULFATE NEB 2.5 MG/3 ML INH INHALATION ×6 (00:39→20:58)
[2021-12-14] MEDS: IPRATROPIUM BR 0.02% INH SOLN 0.5 MG/2.5 ML VIAL 1 MG INHALATION ×6 (00:39→20:58)
[2021-12-14] MEDS: ACETAMINOPHEN 325 MG TABLET 650 MG FEED TUBE (00:50)
[2021-12-14 01:09] LABS: Glucose Point of Care 106 mg/dl (65-105)
[2021-12-14] MEDS: NOREPINEPHRINE 8 MG/D5W 250 ML 8 MG/250 ML BAG 13.13 MG IV CONT (02:49)
[2021-12-14 04:44] LABS: Alveolar/Arterial O2 Gradient 263.2 mmHg; Base Excess ABG 2.7 mEq/l (+/-2.0); Fractional Inspired Oxygen 50 %; HCO3 ABG 26.4 mEq/l (22.0-26.0); Oxygen Content ABG 9.9 %vol (16.0-22.0); Oxygen Saturation ABG 89.4 % (95.0-100.0); PCO2 ABG 36.5 mmHg (35.0-45.0); PO2 ABG 52.2 mmHg (80.0-100.0); PO2 FiO2 Ratio Arterial Blood 1.04 %; Total Hemoglobin 8.2 g/dL (12.0-18.0); pH ABG 7.477 (7.350-7.450)
[2021-12-14 04:46] LABS: Device VENTILATOR; Modified Allen's Test Pass; Oxyhemoglobin 85.8 % THb (90.0-100.0); Site Drawn RIGHT RADIAL
[2021-12-14 04:49] LABS: Arterial Blood Gas PEEP 5 cmH2O; Arterial Blood Gas Vent Mode CMV; Arterial Blood Gas Ventilator rate 18 /MIN
[2021-12-14 04:50] LABS: Arterial Blood Gas Tidal Volume 450 ml
[2021-12-14] MEDS: CENTRAL LINE FLUSH 10 ML IV PUSH ×3 (04:57→22:09)
[2021-12-14] MEDS: metroNIDAZOLE 500 MG/ISO 100ML 500 MG/100 ML BAG 100 MG IVPB ×3 (04:57→21:08)
[2021-12-14 04:59] LABS: Basophils Absolute Auto 0.1 K/mm3 (0.0-0.1); Basophils Percent Auto 0.5 % (0.2-1.2); Eosinophils Absolute Auto 0.1 K/mm3 (0-0.3); Hematocrit 21.6 % (42.0-52.0); Hemoglobin 7.2 g/dL (14.0-18.0); Immature Granulocyte Percent A 1.8 % (0-0.5); Immature Platelet Fraction Pct 5.8 % (0.9-11.2); Lymphocytes Absolute Auto 0.95 K/mm3 (0.9-3.2); Lymphocytes Percent Auto 8.7 % (18.3-44.2); Mean Corpuscular HGB Conc 33.3 g/dl (32-36); Mean Corpuscular Hemoglobin 34.4 pg (26-34); Mean Corpuscular Volume 103.3 fl (80-100); Mean Platelet Volume 10.2 fl (7.4-10.4); Monocytes Absolute Auto 0.3 K/mm3 (0.1-0.6); Monocytes Percent Auto 2.7 % (2.6-8.5); Neutrophils Absolute Auto 9.3 K/mm3 (1.3-6.7); Neutrophils Percent Auto 85.3 % (45.5-73.1); Platelet Count Result 28 k/mm3 (150-375); Red Blood Count 2.09 M/mm3 (4.6-6.20); Red Cell Distribution Width 16.1 % (11.5-14.5); White Blood Count 10.9 K/mm3 (4.5-10.0)
[2021-12-14 05:10] LABS: Partial Thromboplastin Time 45.1 SECONDS (22.3-36.8)
[2021-12-14 05:17] LABS: Alanine Aminotransferase 21 U/L (6-50); Albumin Level 3.7 g/dL (3.5-5.1); Alkaline Phosphatase 123 U/L (38-126); Anion Gap 15 mmol/L (8-16); Aspartate Amino Transferase 68 U/L (17-59); Bilirubin,Total 15.2 mg/dL (0.2-1.3); Blood Urea Nitrogen 42 mg/dL (9-20); Calcium 8.7 mg/dL (8.4-10.2); Carbon Dioxide 27 mmol/L (22-30); Chloride 101 mmol/L (98-107); Estimated CRCL calculation 57 ml/min; Estimated Glomerular Filt Rate > 60; Glucose 105 mg/dL (65-110); Lipase 150 U/L (23-300); Magnesium 1.6 mg/dL (1.6-2.3); Phosphorus 1.4 mg/dL (2.5-4.5); Potassium 2.9 mmol/L (3.4-5.0); Sodium 143 mmol/L (137-145)
[2021-12-14 05:27] LABS: Lactic Acid Reflex 5.1 mmol/L (0.7-2.0)
[2021-12-14] MEDS: POTASSIUM CHLORIDE 20 MEQ PACKET (FOR LIQUID) 40 MEQ FEED TUBE (05:40)
[2021-12-14] MEDS: MAGNESIUM SULF 2 GM/WATER 50ML 2 GM/50 ML BAG IVPB (05:41)
[2021-12-14] MEDS: LACTATED RINGERS 500 ML 999 ML IV CONT (05:43)
[2021-12-14 05:45] LABS: Anisocytosis 1+ (NORMAL); Macrocytosis 1+ (NORMAL); Platelet Estimate Decreased (Adequate); Schistocytes None Seen (NORMAL)
[2021-12-14] MEDS: KCL 40 MEQ/WATER 100 ML 100 ML 25 ML IVPB (06:00)
[2021-12-14] MEDS: DORNASE ALFA INH SOLN 1 MG/ML 2.5 ML AMP 2.5 MG INHALATION ×2 (07:36→20:59)
[2021-12-14 07:55] LABS: Reflex Lactic Acid Yes or No Add Lactic
[2021-12-14] MEDS: THIAMINE HCL 200 MG/2 ML VIAL 100 MG IV PUSH (09:08)
[2021-12-14] MEDS: PHYTONADIONE ADULT INJ 10 MG in DEXTROSE 5% IN WATER 50 ML 68 MG IVPB (09:10)
[2021-12-14] MEDS: MINERAL OIL/WHITE PETROLATUM OINTMENT 1 APPLIC EACH EYE ×2 (09:10→22:09)
[2021-12-14] MEDS: PANTOPRAZOLE SODIUM IV 40 MG VIAL IV PUSH ×2 (09:10→22:08)
[2021-12-14] MEDS: POTASSIUM/PHOSPHORUS/SODIUM 1.5 GM PACKET 1 PACKET PO (09:13)
[2021-12-14 09:22] LABS: Lactic Acid 4.8 mmol/L (0.7-2.0)
[2021-12-14] MEDS: FOLIC ACID 1 MG/0.2 ML INJ IV PUSH (10:36)
[2021-12-14] MEDS: SODIUM CHLORIDE 0.9% IV 250 ML 30 ML IV CONT (11:19)
[2021-12-14 12:13] LABS: Glucose Point of Care 92 mg/dl (65-105)
--- NOTE | 2021-12-14 13:57 | WPDINTPN ---
Progress Note: A&P Assessment and Plan (1) Acute respiratory failure with hypoxia: Code(s): J96.01 - Acute respiratory failure with hypoxia Status: Acute Assessment and Plan: Patient with increasing oxygen requirements due to the course of stay in the hospital -I was asked to evaluate the patient in the intermediate Unit on 12/13/2021. Patient was on Airvo/high-flow therapy, 80 % FiO2 60 L flow rate, patient was somnolent with altered mental status, tachypneic, using accessory muscles of respiration -decided to intubate the patient secondary to impending respiratory failure and worsening chest x-ray -patient was intubated on 12/13/2021, intubation was uneventful -chest x-ray reviewed -ABGs has been ordered -started patient on vanc, cefepime (12/13), continue Flagyl -continue bronchodilators -patient was started on fentanyl and Versed infusion lesion, maintain RASS of 0 to -2 (2) Septic shock: Code(s): A41.9 - Sepsis, unspecified organism; R65.21 - Severe sepsis with septic shock Status: Acute Assessment and Plan: Patient dropped his pressures post intubation, likely related to positive pressure ventilation, decreased adrenergic surge -continue Levophed, maintained MAP > 65 mmHg -was being diuresed aggressively which could also have led to low blood pressures -urine output has been good, will continue to monitor -lactic acids elevated could be related to decreased clearance due to liver dysfunction -continue antibiotics as above (3) Pneumonia: Code(s): J18.9 - Pneumonia, unspecified organism Status: Acute Assessment and Plan: Chest x-ray reviewed, likely bilateral pneumonia -12/13/2021 CTA chest and abdomen and pelvis: Did not show any pulmonary embolism, diffuse lung disease consistent with pulmonary edema versus pneumonia, moderate size pleural effusions. Acute interstitial pancreatitis, small volume ascites -continue antibiotics as above (4) Alcoholic hepatitis: Code(s): K70.10 - Alcoholic hepatitis without ascites Status: Acute Assessment and Plan: Patient has a history of alcoholic hepatitis -worsening bilirubin, LFTs elevated -12/13/2021: CT abdomen and pelvis showed acute interstitial pancreatitis, small volume ascites -GI following the patient (5) Acute on chronic anemia: Code(s): D64.9 - Anemia, unspecified Status: Acute Assessment and Plan: Acute anemia, status post 1 unit of packed RBCs on 12/11 -12/14/2021: Hemoglobin dropped to 7.2, will transfuse 1 unit of packed RBCs -12/11 stool for occult blood is negative -appreciate GI evaluation and recommendations -now that patient is intubated they may be able to perform an EGD (6) Metabolic acidosis: Code(s): E87.2 - Acidosis Status: Acute Assessment and Plan: Anion gap metabolic acidosis likely related to ketoacidosis from alcoholism -blood sugars have been stable -patient is not uremic (7) Acute pancreatitis: Code(s): K85.90 - Acute pancreatitis without necrosis or infection, unspecified Status: Acute Assessment and Plan: Patient with acute pancreatitis on admission with elevated lipase levels -patient was treated with IV fluids, lipase levels trending down (8) Thrombocytopenia: Code(s): D69.6 - Thrombocytopenia, unspecified Status: Acute Assessment and Plan: Likely related to alcoholic hepatitis, alcoholism -CT scan of the abdomen and pelvis to see if there is any hepatosplenomegaly to explain thrombocytopenia -this could be also consumptive secondary to anemia -no acute bleeding at this time noted -continue to monitor -12/14: Platelet count dropped to 28, will transfuse 1 unit of platelets given patient has anemia Plan DVT prophylaxis: SCDs, no chemoprophylaxis due to thrombocytopenia and anemia Stress ulcer prophylaxis: Will increase Protonix IV to q.12 hours Nutrition: NPO for now Code Status: Full code Mandy
[2021-12-14] MEDS: DEXTROSE 5%/0.45% SOD CHL 1,000 ML 50 ML IV CONT (14:27)
[2021-12-14] MEDS: SALINE LOCK FLUSH 10 ML IV PUSH (14:27)
[2021-12-14] MEDS: SODIUM CHLORIDE 0.9% IV 250 ML 100 ML (15:05)
--- NOTE | 2021-12-14 15:48 | P.PNIM_ITS ---
Progress Note: A&P Assessment and Plan (1) Neuropathy: Code(s): G62.9 - Polyneuropathy, unspecified Status: Acute Assessment and Plan: * Continue home gabapentin * Trend symptoms (2) Acute pancreatitis: Code(s): K85.90 - Acute pancreatitis without necrosis or infection, unspecified Status: Acute Assessment and Plan: * Lipase elevated at 3641 * IV fluid resuscitation which will be stopped 12/09 due to congestive changes in chest x-ray * CT indicates pancreatitis likely alcoholic related. LFTs are elevated as well. gallbladder ultrasound was gallbladder sludge with mild gallbladder wall thickening. ascites and hepatic steatosis * Trend labs, including lipase which is been improving * was started on clear liquid diet but will change to NPO due to his respiratory status and risk of aspiration * WBC is 12.4 12/14/2021 interval history: patient with history of alcohol abuse presented with hypoglycemia, weakness and found to have pulmonary edema, cardiac echo is essentially normal, patient being diuresed, chest x-ray concerning of pneumonia treated with azithromycin and ceftriaxone added Flagyl to cover for anaerobics, patient was seen by GI recommended EGD however patient respiratory and clinically not stable, and GI has postponed EGD, patient appears chronically, unable to provide detail history or ROS. patient presented with alcohol levels of 105 on 12/06 so far he has not any sign of DT, however on 12/13 patient symptoms were worsen, he was obtunded, has labor breathing, was seen by gang knife fish chopper, evaluated the patient and recommended patient needs to be placed on ventilator, will transfer the patient to ICU, gang knife fish chopper started patient on Cefepime, vancomycin, and flagyl, patient has septic shock and on levophed will maintain MAP >65mmHg today patient remains on vent appreciate gang knife fish chopper, will monitor and follow the patient in ICU. (3) Hypertension: Code(s): I10 - Essential (primary) hypertension Status: Acute Assessment and Plan: * BP is hypotensive and hence all his blood pressure medication will be held Blood pressure is improved now (4) Severe sepsis: Code(s): A41.9 - Sepsis, unspecified organism; R65.20 - Severe sepsis without septic shock Status: Acute Assessment and Plan: * Meets SIRS with tachycardiac, tachypnea, leukocytosis, acute confusion * Source of infection could be the pancreas, blood with hypoglycemia Patient endorses some cough. Treat for sepsis related to pneumonia with vancomycin and cefepime also add azithromycin for atypical coverage * Kidneys shows an CARLO * Glucose was noted to be low * Blood gas indicates metabolic acidosis * Appears the patient received 2L of fluids in the ED * IV fluid continued * Trend labs * Start on cefepime and Vanco until infection can be ruled out Also on azithromycin. * Vancomycin discontinued. Blood culture 1/ positive for Staph epidermidis which is likely a contaminant (5) Metabolic acidosis: Code(s): E87.2 - Acidosis Status: Acute Assessment and Plan: * ABG indicates metabolic acidosis * Glucose is low Repeat ABG today with respiratory alkalosis likely due to congestive heart failure (6) Acute metabolic encephalopathy: Code(s): G93.41 - Metabolic encephalopathy Status: Acute Assessment and Plan: * Was noted to be confused * Could be from the hypoglycemia * Likely related to underlying sepsis Lactic acid is high as well
--- NOTE | 2021-12-14 15:48 | PM.IMPN ---
Progress Note: A&P Assessment and Plan (1) Neuropathy: Code(s): G62.9 - Polyneuropathy, unspecified Status: Acute Assessment and Plan: Continue home gabapentin Trend symptoms (2) Acute pancreatitis: Code(s): K85.90 - Acute pancreatitis without necrosis or infection, unspecified Status: Acute Assessment and Plan: Lipase elevated at 3641 IV fluid resuscitation which will be stopped 12/09 due to congestive changes in chest x-ray CT indicates pancreatitis likely alcoholic related. LFTs are elevated as well. gallbladder ultrasound was gallbladder sludge with mild gallbladder wall thickening. ascites and hepatic steatosis Trend labs, including lipase which is been improving was started on clear liquid diet but will change to NPO due to his respiratory status and risk of aspiration WBC is 12.4 12/14/2021 interval history: patient with history of alcohol abuse presented with hypoglycemia, weakness and found to have pulmonary edema, cardiac echo is essentially normal, patient being diuresed, chest x-ray concerning of pneumonia treated with azithromycin and ceftriaxone added Flagyl to cover for anaerobics, patient was seen by GI recommended EGD however patient respiratory and clinically not stable, and GI has postponed EGD, patient appears chronically, unable to provide detail history or ROS. patient presented with alcohol levels of 105 on 12/06 so far he has not any sign of DT, however on 12/13 patient symptoms were worsen, he was obtunded, has labor breathing, was seen by bale stacker, evaluated the patient and recommended patient needs to be placed on ventilator, will transfer the patient to ICU, bale stacker started patient on Cefepime, vancomycin, and flagyl, patient has septic shock and on levophed will maintain MAP >65mmHg today patient remains on vent appreciate bale stacker, will monitor and follow the patient in ICU. (3) Hypertension: Code(s): I10 - Essential (primary) hypertension Status: Acute Assessment and Plan: BP is hypotensive and hence all his blood pressure medication will be held Blood pressure is improved now (4) Severe sepsis: Code(s): A41.9 - Sepsis, unspecified organism; R65.20 - Severe sepsis without septic shock Status: Acute Assessment and Plan: Meets SIRS with tachycardiac, tachypnea, leukocytosis, acute confusion Source of infection could be the pancreas, blood with hypoglycemia Patient endorses some cough. Treat for sepsis related to pneumonia with vancomycin and cefepime also add azithromycin for atypical coverage Kidneys shows an CARLO Glucose was noted to be low Blood gas indicates metabolic acidosis Appears the patient received 2L of fluids in the ED IV fluid continued Trend labs Start on cefepime and Vanco until infection can be ruled out Also on azithromycin. Vancomycin discontinued. Blood culture 1/ positive for Staph epidermidis which is likely a contaminant (5) Metabolic acidosis: Code(s): E87.2 - Acidosis Status: Acute Assessment and Plan: ABG indicates metabolic acidosis Glucose is low Repeat ABG today with respiratory alkalosis likely due to congestive heart failure (6) Acute metabolic encephalopathy: Code(s): G93.41 - Metabolic encephalopathy Status: Acute Assessment and Plan: Was noted to be confused Could be from the hypoglycemia Likely related to underlying sepsis Lactic acid is high as well Head ct negative for acute findings Now showing signs of alcohol withdrawal with delirium overnight. Currently alert and oriented x3. If worsens will benefit from Precedex drip in ICU due to his poor respiratory status (7) CARLO (acute kidney injury): Code(s): N17.9 - Acute kidney failure, unspecified Status: Acute Assessment and Plan: Cr upon arrival was 1.40 Baseline appears to be <1.0
[2021-12-14 16:21] LABS: Hematocrit 24.2 % (42.0-52.0); Immature Platelet Fraction Pct 3.9 % (0.9-11.2); Mean Corpuscular HGB Conc 33.1 g/dl (32-36); Mean Corpuscular Hemoglobin 31.9 pg (26-34); Mean Corpuscular Volume 96.4 fl (80-100); Mean Platelet Volume 9.7 fl (7.4-10.4); Platelet Count Result 84 k/mm3 (150-375); Red Blood Count 2.51 M/mm3 (4.6-6.20); Red Cell Distribution Width 19.9 % (11.5-14.5); White Blood Count 11.8 K/mm3 (4.5-10.0)
[2021-12-14 18:09] LABS: Glucose Point of Care 104 mg/dl (65-105)
[2021-12-14] MEDS: FENTANYL 2,500MCG/NS250ML(*CRX 2,500 MCG/250 ML BAG 7.5 MCG IV CONT (21:07)
[2021-12-15] VITALS (40 sets, daily range): BP systolic 73–112; BP diastolic 61–88; PULSE 89–117; RESP 16–23; TEMP 36–37.4; O2SAT 95–100
[2021-12-15] MEDS: ALBUTEROL SULFATE NEB 2.5 MG/3 ML INH INHALATION ×6 (01:10→21:10)
[2021-12-15] MEDS: IPRATROPIUM BR 0.02% INH SOLN 0.5 MG/2.5 ML VIAL 1 MG INHALATION ×6 (01:10→21:10)
[2021-12-15 05:20] LABS: Alveolar/Arterial O2 Gradient 310.7 mmHg; Base Excess ABG -1.2 mEq/l (+/-2.0); Carboxyhemoglobin 0.7 % THb (0-2.0); Fractional Inspired Oxygen 60 %; Methemoglobin ABG 0.2 %THb (0-1.5); Oxygen Content ABG 12.7 %vol (16.0-22.0); Oxygen Saturation ABG 95.7 % (95.0-100.0); Oxyhemoglobin 93.7 % THb (90.0-100.0); PCO2 ABG 36.4 mmHg (35.0-45.0); PO2 ABG 77.1 mmHg (80.0-100.0); PO2 FiO2 Ratio Arterial Blood 1.28 %; Reduced Hemoglobin 5.4 %THb (0-5.0); Total Hemoglobin 9.6 g/dL (12.0-18.0); pH ABG 7.418 (7.350-7.450)
[2021-12-15 05:22] LABS: Device VENTILATOR; Modified Allen's Test Pass
[2021-12-15 05:23] LABS: Site Drawn RIGHT RADIAL
[2021-12-15 05:24] LABS: Arterial Blood Gas Vent Mode CMV; Arterial Blood Gas Ventilator rate 18 /MIN
[2021-12-15] MEDS: metroNIDAZOLE 500 MG/ISO 100ML 500 MG/100 ML BAG 100 MG IVPB ×3 (05:24→19:44)
[2021-12-15] MEDS: CENTRAL LINE FLUSH 10 ML IV PUSH ×3 (05:24→20:01)
[2021-12-15 05:25] LABS: Glucose Point of Care 89 mg/dl (65-105)
[2021-12-15 05:25] LABS: Arterial Blood Gas PEEP 5 cmH2O; Arterial Blood Gas Tidal Volume 450 ml
[2021-12-15] MEDS: NOREPINEPHRINE 8 MG/D5W 250 ML 8 MG/250 ML BAG 11.25 MG IV CONT (05:26)
[2021-12-15 06:08] LABS: Hematocrit 24.3 % (42.0-52.0); Hemoglobin 7.9 g/dL (14.0-18.0); Immature Platelet Fraction Pct 6.4 % (0.9-11.2); Mean Corpuscular HGB Conc 32.5 g/dl (32-36); Mean Corpuscular Hemoglobin 31.6 pg (26-34); Mean Corpuscular Volume 97.2 fl (80-100); Mean Platelet Volume 12.1 fl (7.4-10.4); Platelet Count Result 34 k/mm3 (150-375); Red Cell Distribution Width 21.3 % (11.5-14.5); White Blood Count 11.7 K/mm3 (4.5-10.0)
[2021-12-15 06:18] LABS: INR 1.8; Prothrombin Time 20.2 Seconds (11.1-14.7)
[2021-12-15 06:19] LABS: Partial Thromboplastin Time 42.7 SECONDS (22.3-36.8)
[2021-12-15 06:40] LABS: Alanine Aminotransferase 19 U/L (6-50); Albumin Level 3.3 g/dL (3.5-5.1); Alkaline Phosphatase 98 U/L (38-126); Anion Gap 14 mmol/L (8-16); Aspartate Amino Transferase 47 U/L (17-59); Bilirubin,Total 14.3 mg/dL (0.2-1.3); Blood Urea Nitrogen 38 mg/dL (9-20); Calcium 8.5 mg/dL (8.4-10.2); Carbon Dioxide 22 mmol/L (22-30); Chloride 106 mmol/L (98-107); Estimated CRCL calculation 83 ml/min; Estimated Glomerular Filt Rate > 60; Glucose 87 mg/dL (65-110); Lipase 110 U/L (23-300); Magnesium 1.9 mg/dL (1.6-2.3); Phosphorus 1.5 mg/dL (2.5-4.5); Potassium 3.7 mmol/L (3.4-5.0); Sodium 142 mmol/L (137-145)
[2021-12-15 06:53] LABS: Lactic Acid Reflex 5.5 mmol/L (0.7-2.0)
[2021-12-15] MEDS: DORNASE ALFA INH SOLN 1 MG/ML 2.5 ML AMP 2.5 MG INHALATION ×2 (07:53→21:18)
[2021-12-15] MEDS: POTASSIUM/PHOSPHORUS/SODIUM 1.5 GM PACKET 1 PACKET PO (08:51)
[2021-12-15] MEDS: FOLIC ACID 1 MG/0.2 ML INJ IV PUSH (08:51)
[2021-12-15] MEDS: PANTOPRAZOLE SODIUM IV 40 MG VIAL IV PUSH ×2 (08:52→20:00)
[2021-12-15] MEDS: MINERAL OIL/WHITE PETROLATUM OINTMENT 1 APPLIC EACH EYE ×2 (08:53→20:00)
[2021-12-15] MEDS: THIAMINE HCL 200 MG/2 ML VIAL 100 MG IV PUSH (08:53)
[2021-12-15 09:03] LABS: Reflex Lactic Acid Yes or No Add Lactic
[2021-12-15 09:41] LABS: Lactic Acid 5.2 mmol/L (0.7-2.0)
[2021-12-15] MEDS: DEXTROSE 5%/0.45% SOD CHL 1,000 ML 50 ML IV CONT (09:57)
--- NOTE | 2021-12-15 10:44 | WPDINTPN ---
Progress Note: A&P Assessment and Plan (1) Acute respiratory failure with hypoxia: Code(s): J96.01 - Acute respiratory failure with hypoxia Status: Acute Assessment and Plan: Patient with increasing oxygen requirements due to the course of stay in the hospital -I was asked to evaluate the patient in the intermediate Unit on 12/13/2021. Patient was on Airvo/high-flow therapy, 80 % FiO2 60 L flow rate, patient was somnolent with altered mental status, tachypneic, using accessory muscles of respiration -decided to intubate the patient secondary to impending respiratory failure and worsening chest x-ray -patient was intubated on 12/13/2021, intubation was uneventful -currently on CMV mode of ventilation, peep of 5 and 50% FiO2, -chest x-ray and ABGs reviewed, will increase PEEP to 8 -scontinue vanc, cefepime (12/13), continue Flagyl -continue bronchodilators -patient was started on fentanyl and Versed infusion lesion, maintain RASS of 0 to -1 (2) Septic shock: Code(s): A41.9 - Sepsis, unspecified organism; R65.21 - Severe sepsis with septic shock Status: Acute Assessment and Plan: Patient dropped his pressures post intubation, likely related to positive pressure ventilation, decreased adrenergic surge -continue Levophed, maintained MAP > 65 mmHg -was being diuresed aggressively which could also have led to low blood pressures -patient was given adequate amount of IV fluids, patient also received packed RBCs and platelets on 12/14/2021, currently positive fluid balance -urine output has been good, will continue to monitor -lactic acids elevated could be related to decreased clearance due to liver dysfunction -continue antibiotics as above (3) Pneumonia: Code(s): J18.9 - Pneumonia, unspecified organism Status: Acute Assessment and Plan: Chest x-ray reviewed, likely bilateral pneumonia -12/13/2021 CTA chest and abdomen and pelvis: Did not show any pulmonary embolism, diffuse lung disease consistent with pulmonary edema versus pneumonia, moderate size pleural effusions. Acute interstitial pancreatitis, small volume ascites -continue antibiotics as above (4) Alcoholic hepatitis: Code(s): K70.10 - Alcoholic hepatitis without ascites Status: Acute Assessment and Plan: Patient has a history of alcoholic hepatitis -worsening bilirubin, LFTs elevated -12/13/2021: CT abdomen and pelvis showed acute interstitial pancreatitis, small volume ascites -GI following the patient (5) Acute on chronic anemia: Code(s): D64.9 - Anemia, unspecified Status: Acute Assessment and Plan: Acute anemia, status post 1 unit of packed RBCs on 12/11 -12/14/2021: Received 1 unit of packed RBCs, patient does have some cold agglutinins and his blood has to come from [facility] -12/11 stool for occult blood is negative -appreciate GI evaluation and recommendations -now that patient is intubated they may be able to perform an EGD (6) Metabolic acidosis: Code(s): E87.2 - Acidosis Status: Acute Assessment and Plan: Anion gap metabolic acidosis resolved -blood sugars have been stable -patient is not uremic (7) Acute pancreatitis: Code(s): K85.90 - Acute pancreatitis without necrosis or infection, unspecified Status: Acute Assessment and Plan: Patient with acute pancreatitis on admission with elevated lipase levels -patient was treated with IV fluids, - lipase levels normalized (8) Thrombocytopenia: Code(s): D69.6 - Thrombocytopenia, unspecified Status: Acute Assessment and Plan: Likely related to alcoholic hepatitis, alcoholism -CT scan of the abdomen and pelvis to see if there is any hepatosplenomegaly to explain thrombocytopenia -this could be also consumptive secondary to anemia -no acute bleeding at this time noted -continue to monitor -12/14: Transfuse 1 unit of platelets Plan DVT prophylaxis: SCDs, no
[2021-12-15 12:33] LABS: Glucose Point of Care 115 mg/dl (65-105)
[2021-12-15] MEDS: MIDAZOLAM 100MG/NS 100ML(*CRX) 100 MG/100 ML BAG IV CONT (14:27)
[2021-12-15] MEDS: SALINE LOCK FLUSH 10 ML IV PUSH (14:34)
[2021-12-15 18:28] LABS: Glucose Point of Care 69 mg/dl (65-105)
[2021-12-15] MEDS: DEXTROSE 50% 25 GM/50 ML SYRINGE IV PUSH (18:49)
[2021-12-15 19:18] LABS: Glucose Point of Care 119 mg/dl (65-105)
[2021-12-16] VITALS (51 sets, daily range): BP systolic 80–117; BP diastolic 61–90; PULSE 69–113; RESP 18–92; TEMP 36.2–37.5; O2SAT 21–100
[2021-12-16] LABS: Glucose Point of Care 76 mg/dl (65-105)
[2021-12-16] MEDS: IPRATROPIUM BR 0.02% INH SOLN 0.5 MG/2.5 ML VIAL 1 MG INHALATION ×7 (00:13→23:47)
[2021-12-16] MEDS: ALBUTEROL SULFATE NEB 2.5 MG/3 ML INH INHALATION ×7 (00:13→23:47)
[2021-12-16] MEDS: NOREPINEPHRINE 8 MG/D5W 250 ML 8 MG/250 ML BAG 15 MG IV CONT (02:14)
[2021-12-16 02:19] LABS: Glucose Point of Care 91 mg/dl (65-105)
[2021-12-16] MEDS: DEXTROSE 5%/0.45% SOD CHL 1,000 ML 50 ML IV CONT (04:14)
[2021-12-16] MEDS: metroNIDAZOLE 500 MG/ISO 100ML 500 MG/100 ML BAG 100 MG IVPB ×3 (04:15→19:44)
[2021-12-16 04:35] LABS: Vancomycin Trough 13.5 ug/mL (10.0-20.0)
[2021-12-16] MEDS: SALINE LOCK FLUSH 10 ML IV PUSH ×3 (04:58→20:16)
[2021-12-16 05:33] LABS: Glucose Point of Care 126 mg/dl (65-105)
[2021-12-16 05:42] LABS: Alveolar/Arterial O2 Gradient 192.4 mmHg; Base Excess ABG -2.7 mEq/l (+/-2.0); Carboxyhemoglobin 0.2 % THb (0-2.0); Fractional Inspired Oxygen 50 %; HCO3 ABG 22.3 mEq/l (22.0-26.0); Methemoglobin ABG 0.2 %THb (0-1.5); Oxygen Content ABG 15.2 %vol (16.0-22.0); Oxygen Saturation ABG 98.3 % (95.0-100.0); PCO2 ABG 39.4 mmHg (35.0-45.0); PO2 ABG 119.8 mmHg (80.0-100.0); Reduced Hemoglobin 2.6 %THb (0-5.0)
[2021-12-16 05:45] LABS: Device VENTILATOR; Modified Allen's Test Pass; Site Drawn RIGHT RADIAL
[2021-12-16 05:47] LABS: Arterial Blood Gas PEEP 8 cmH2O; Arterial Blood Gas Tidal Volume 450 ml; Arterial Blood Gas Vent Mode CMV; Arterial Blood Gas Ventilator rate 18 /MIN
[2021-12-16 06:19] LABS: Hematocrit 21.5 % (42.0-52.0); Immature Platelet Fraction Pct 15.6 % (0.9-11.2); Mean Corpuscular HGB Conc 31.6 g/dl (32-36); Mean Corpuscular Hemoglobin 31.3 pg (26-34); Mean Corpuscular Volume 99.1 fl (80-100); Red Blood Count 2.17 M/mm3 (4.6-6.20); Red Cell Distribution Width 22.2 % (11.5-14.5); White Blood Count 10.6 K/mm3 (4.5-10.0)
[2021-12-16 06:30] LABS: Alanine Aminotransferase 19 U/L (6-50); Albumin Level 2.9 g/dL (3.5-5.1); Alkaline Phosphatase 85 U/L (38-126); Anion Gap 14 mmol/L (8-16); Aspartate Amino Transferase 49 U/L (17-59); Bilirubin,Total 13.2 mg/dL (0.2-1.3); Blood Urea Nitrogen 39 mg/dL (9-20); Calcium 8.4 mg/dL (8.4-10.2); Carbon Dioxide 20 mmol/L (22-30); Chloride 101 mmol/L (98-107); Estimated CRCL calculation 64 ml/min; Estimated Glomerular Filt Rate > 60; Glucose 140 mg/dL (65-110); Lipase 73 U/L (23-300); Magnesium 1.7 mg/dL (1.6-2.3); Phosphorus 1.9 mg/dL (2.5-4.5); Potassium 3.2 mmol/L (3.4-5.0); Sodium 135 mmol/L (137-145)
[2021-12-16 06:50] LABS: Platelet Count Result 11 k/mm3 (150-375)
[2021-12-16 06:51] LABS: Hemoglobin 6.8 g/dL (14.0-18.0)
[2021-12-16] MEDS: DORNASE ALFA INH SOLN 1 MG/ML 2.5 ML AMP 2.5 MG INHALATION ×2 (07:47→20:46)
[2021-12-16] MEDS: THIAMINE HCL 200 MG/2 ML VIAL 100 MG IV PUSH (08:19)
[2021-12-16] MEDS: PANTOPRAZOLE SODIUM IV 40 MG VIAL IV PUSH ×2 (08:19→20:16)
[2021-12-16] MEDS: MINERAL OIL/WHITE PETROLATUM OINTMENT 1 APPLIC EACH EYE ×2 (08:19→20:16)
[2021-12-16] MEDS: METOCLOPRAMIDE HCL 10 MG/10 ML SOLN UDC FEED TUBE ×3 (08:23→17:11)
[2021-12-16] MEDS: PHYTONADIONE INJ 10 MG/ML AMP IM (08:40)
[2021-12-16] MEDS: FOLIC ACID 1 MG/0.2 ML INJ IV PUSH (08:41)
[2021-12-16 09:07] LABS: Band Neutrophils Percent 20 % (0-6); Eosinophils Percent Manual 1 % (0-4); Lymphocytes Absolute Manual 0.74 K/mm3 (1.1-4.5); Neutrophils Absolute Manual 9.75 K/mm3 (1.3-6.7); Neutrophils Percent Manual 72 % (46-73); Total Cells Counted 100
[2021-12-16 09:08] LABS: Burr Cells 1+ (NORMAL); Platelet Estimate Decreased (Adequate); Schistocytes 1+ (NORMAL)
[2021-12-16 09:14] LABS: Reflex Lactic Acid Yes or No Add Lactic
--- NOTE | 2021-12-16 09:45 | WPDINTPN ---
Progress Note: A&P Assessment and Plan (1) Acute respiratory failure with hypoxia: Code(s): J96.01 - Acute respiratory failure with hypoxia Status: Acute Assessment and Plan: Patient with increasing oxygen requirements due to the course of stay in the hospital -12/13/2021. Patient was intubated for respiratory failure and worsening chest x-ray -currently on CMV mode of ventilation, peep of 8 and 50% FiO2 FiO2 decreased to 40% -chest x-ray and ABGs reviewed -continue vanc, cefepime (12/13), continue Flagyl -continue bronchodilators -currently on sedation holiday (2) Septic shock: Code(s): A41.9 - Sepsis, unspecified organism; R65.21 - Severe sepsis with septic shock Status: Acute Assessment and Plan: Patient dropped his pressures post intubation, likely related to positive pressure ventilation, decreased adrenergic surge -continue Levophed, maintained MAP > 65 mmHg -was being diuresed aggressively which could also have led to low blood pressures -patient was given adequate amount of IV fluids, patient also received packed RBCs and platelets on 12/14/2021, currently positive fluid balance -monitor urine output -lactic acids elevated could be related to decreased clearance due to liver dysfunction -continue antibiotics as above -continue albumin (3) Pneumonia: Code(s): J18.9 - Pneumonia, unspecified organism Status: Acute Assessment and Plan: Chest x-ray reviewed, likely bilateral pneumonia -12/13/2021 CTA chest and abdomen and pelvis: Did not show any pulmonary embolism, diffuse lung disease consistent with pulmonary edema versus pneumonia, moderate size pleural effusions. Acute interstitial pancreatitis, small volume ascites -continue antibiotics as above (4) Alcoholic hepatitis: Code(s): K70.10 - Alcoholic hepatitis without ascites Status: Acute Assessment and Plan: Patient has a history of alcoholic hepatitis -worsening bilirubin, LFTs elevated -12/13/2021: CT abdomen and pelvis showed acute interstitial pancreatitis, small volume ascites -GI following the patient - Amberly's Discriminant Function is 42.8. Will start Solu-Medrol 40 mg IV q.a.m. (5) Acute on chronic anemia: Code(s): D64.9 - Anemia, unspecified Status: Acute Assessment and Plan: Acute anemia, status post 1 unit of packed RBCs on 12/11 -12/14/2021: Received 1 unit of packed RBCs, patient does have some cold agglutinins and his blood has to come from [facility] -12/11 stool for occult blood is negative -appreciate GI evaluation and recommendations -now that patient is intubated they may be able to perform an EGD - 12/16 hemoglobin 6.8 today. Will transfuse 1 more unit of PRBC (6) Metabolic acidosis: Code(s): E87.2 - Acidosis Status: Acute Assessment and Plan: Anion gap metabolic acidosis improved Monitor (7) Acute pancreatitis: Code(s): K85.90 - Acute pancreatitis without necrosis or infection, unspecified Status: Acute Assessment and Plan: Patient with acute pancreatitis on admission with elevated lipase levels -patient was treated with IV fluids, - lipase levels normalized -continue tube feeds (8) Thrombocytopenia: Code(s): D69.6 - Thrombocytopenia, unspecified Status: Acute Assessment and Plan: Likely related to alcoholic hepatitis, alcoholism, sepsis -this could be also consumptive secondary to anemia -no acute bleeding at this time noted -continue to monitor -12/14: Transfuse 1 unit of platelets - 12/16 transfuse 2 units of platelets (9) Electrolyte abnormality: Code(s): E87.8 - Other disorders of electrolyte and fluid balance, not elsewhere classified Status: Acute Assessment and Plan: Replace potassium and phosphate (10) Coagulopathy: Code(s): D68.9 - Coagulation defect, unspecified Status: Acute Assessment and Plan: Will give dose of vitamin K
[2021-12-16 10:02] LABS: Lactic Acid 5.7 mmol/L (0.7-2.0)
[2021-12-16] MEDS: SODIUM CHLORIDE 0.9% IV 250 ML 30 ML IV CONT (10:44)
--- NOTE | 2021-12-16 11:51 | PCFNICU ---
ICU Rounding Note: Pt current nutrition is Vital 1.2 @ 30 ml/h. Nutrition recommendation: Goal rate is 65 ml/h. 1716 kcal, 107 g protein, 1160 ml free water. Last recorded weight is 64.7 kg. Bowel Motility:-BM since admission Labs Reviewed:Alb 2.9, Na 135, K+ 3.2, BUN 39, Creat 1.0, Glu 126 Meds Noted: Protonix, Zofran Lasix, Folic acid, levophed @ 5 mcg/min Skin: WNL Additional Notes: Tube feeding was resumed today @ 30 ml/h. Following daily in ICU rounds. follow up in 5 days monitor appetite, meal and fluid/nutritional supplement intake, wt and labs.
[2021-12-16 11:57] LABS: Glucose Point of Care 94 mg/dl (65-105)
--- NOTE | 2021-12-16 12:00 | WPDGIPROGNO ---
Progress Note: A&P Assessment and Plan (1) Septic shock: Code(s): A41.9 - Sepsis, unspecified organism; R65.21 - Severe sepsis with septic shock Status: Acute Assessment and Plan: he is currently in icu quite sick (2) Alcoholic hepatitis: Code(s): K70.10 - Alcoholic hepatitis without ascites Status: Acute Assessment and Plan: rising bilirubin, started on iv steroids because elevated Maddrey score prognosis is guarded (3) Acute respiratory failure with hypoxia: Code(s): J96.01 - Acute respiratory failure with hypoxia Status: Acute Assessment and Plan: he is currently intubated, on iv antibiotics for pneumonia (4) Acute metabolic encephalopathy: Code(s): G93.41 - Metabolic encephalopathy Status: Acute (5) Thrombocytopenia: Code(s): D69.6 - Thrombocytopenia, unspecified Status: Acute Assessment and Plan: will get platelets ? DIC from severe alcoholic hepatitis, sepsis, pancreatitis, etc (6) Coagulopathy: Code(s): D68.9 - Coagulation defect, unspecified Status: Acute (7) Acute on chronic anemia: Code(s): D64.9 - Anemia, unspecified Status: Acute Assessment and Plan: no overt gib but requiring blood transfusion again will do egd tomorrow since he is intubated Subjective Date/time seen: 12/16/21 12:00 Interval history: clinical worsened over the weekend, now is intubated, also requiring blood and platelet transfusion (no overt gib), on pressors because hypotension and elevated lactic acid. Review of Systems Review of Systems: ROS unobtainable: Yes unobtainable due to endotracheal tube and unobtainable due to mental status Exam Narrative: General: Patient intubated in no distress HEENT:? Pupils are reactive, sclera is icteric, ETT in place Neck:? Supple Respiratory:? coarse breath sounds b/l, adequate air entry Cardiac:? sinus tacycardia, S1 S2 normal Abdomen:? soft, non tender, non distended, hypoactive bowel sounds Extremities:? Upper extremity bruising, no edema, palpable pedal pulses Neuro:? Patient is intubated, off sedation, grimaces on painful stimulus, withdraws to painful stimuli, resists exam is by trying to short eyes, does not follow commands, PERRL Skin:? Jaundiced Psych:? Unable to assess at this time Objective Data Vital Signs Vital Signs: Vital Signs - 24 hr 12/15/21 14:00 12/15/21 14:27 12/15/21 14:27 Temperature Pulse Rate 104 H 106 H 106 H Respiratory Rate 18 18 Blood Pressure Pulse Oximetry Oxygen Delivery Fraction of Inspired Oxygen 12/15/21 14:51 12/15/21 14:00 12/15/21 15:59 Temperature 97.9 F Pulse Rate 106 H 103 H 108 H Respiratory Rate 18 18 Blood Pressure 100/84 Pulse Oximetry 98 97 Oxygen Delivery Mechanical Ventilation Fraction of Inspired Oxygen 50 12/15/21 16:00 12/15/21 16:00 12/15/21 16:24 Temperature Pulse Rate 110 H Respiratory Rate 18 Blood Pressure Pulse Oximetry 99 Oxygen Delivery Mechanical Ventilation Fraction of Inspired Oxygen 60 50 12/15/21 14:00 12/15/21 16:00 12/15/21 16:00 Temperature 98.7 F Pulse Rate 105 H 111 H 104 H Respiratory Rate 18 18 18 Blood Pressure 96/76 L Pulse Oximetry 95 Oxygen Delivery Fraction of Inspired Oxygen 12/15/21 16:44 12/15/21 16:45 12/15/21 16:55 Temperature Pulse Rate 106 H 108 H 111 H Respiratory Rate 18 18 Blood Pressure Pulse Oximetry 96 Oxygen Delivery Mechanical Ventilation Fraction of Inspired Oxygen 50 12/15/21 16:00 12/15/21 16:00 12/15/21 18:00 Temperature Pulse Rate 108 H 108 H 117 H Respiratory Rate Blood Pressure 96/76 L Pulse Oximetry Oxygen Delivery Fraction of Inspired Oxygen 12/15/21 18:25 12/15/21 18:25 12/15/21 18:00 Temperature Pulse Rate 117 H 117 H 108 H Respiratory Rate 18 18 18 Blood Pressure 96/76 L Pulse Oximetry 98 Oxygen Delivery Fra
[2021-12-16] MEDS: methylPREDNISolone SOD SUCC 40 MG VIAL IV PUSH (12:56)
--- NOTE | 2021-12-16 17:10 | P.PNIM_ITS ---
Progress Note: A&P Assessment and Plan (1) Neuropathy: Code(s): G62.9 - Polyneuropathy, unspecified Status: Acute Assessment and Plan: * Continue home gabapentin * Trend symptoms (2) Acute pancreatitis: Code(s): K85.90 - Acute pancreatitis without necrosis or infection, unspecified Status: Acute Assessment and Plan: * Lipase elevated at 3641 * IV fluid resuscitation which will be stopped 12/09 due to congestive changes in chest x-ray * CT indicates pancreatitis likely alcoholic related. LFTs are elevated as well. gallbladder ultrasound was gallbladder sludge with mild gallbladder wall thickening. ascites and hepatic steatosis * Trend labs, including lipase which is been improving * was started on clear liquid diet but will change to NPO due to his respiratory status and risk of aspiration * WBC is 12.4 12/16/2021 interval history: patient with history of alcohol abuse presented with hypoglycemia, weakness and found to have pulmonary edema, cardiac echo is essentially normal, patient being diuresed, chest x-ray concerning of pneumonia treated with azithromycin and ceftriaxone added Flagyl to cover for anaerobics, patient was seen by GI recommended EGD however patient respiratory and clinically not stable, and GI has postponed EGD, patient appears chronically, unable to provide detail history or ROS. patient presented with alcohol levels of 105 on 12/06 so far he has not any sign of DT, however on 12/13 patient symptoms were worsen, he was obtunded, had labor breathing, was seen by semiconductor dies loader, evaluated the patient and recommended patient needs to be placed on ventilator, transfered the patient to ICU, semiconductor dies loader started patient on Cefepime, vancomycin, and flagyl, patient has septic shock and on levophed will maintain MAP >65mmHg today patient remains on vent, however pt hgb has dropped and seen by GI and will do EGD, spoke with semiconductor dies loader started patient on steroid due to alcholic hepatitis and billirubin is rising has elevated Maddrey score, appreciate semiconductor dies loader, will monitor and follow the patient in ICU. (3) Hypertension: Code(s): I10 - Essential (primary) hypertension Status: Acute Assessment and Plan: * BP is hypotensive and hence all his blood pressure medication will be held Blood pressure is improved now (4) Severe sepsis: Code(s): A41.9 - Sepsis, unspecified organism; R65.20 - Severe sepsis without septic shock Status: Acute Assessment and Plan: * Meets SIRS with tachycardiac, tachypnea, leukocytosis, acute confusion * Source of infection could be the pancreas, blood with hypoglycemia Patient endorses some cough. Treat for sepsis related to pneumonia with vancomycin and cefepime also add azithromycin for atypical coverage * Kidneys shows an CARLO * Glucose was noted to be low * Blood gas indicates metabolic acidosis * Appears the patient received 2L of fluids in the ED * IV fluid continued * Trend labs * Start on cefepime and Vanco until infection can be ruled out Also on azithromycin. * Vancomycin discontinued. Blood culture 1/ positive for Staph epidermidis which is likely a contaminant (5) Metabolic acidosis: Code(s): E87.2 - Acidosis Status: Acute Assessment and Plan: * ABG indicates metabolic acidosis * Glucose is low Repeat ABG today with respiratory alkalosis likely due to congestive heart failure (6) Acute metabolic encephalopathy: Code(s): G93.41 - Metabolic encephalopathy
--- NOTE | 2021-12-16 17:10 | PM.IMPN ---
Progress Note: A&P Assessment and Plan (1) Neuropathy: Code(s): G62.9 - Polyneuropathy, unspecified Status: Acute Assessment and Plan: Continue home gabapentin Trend symptoms (2) Acute pancreatitis: Code(s): K85.90 - Acute pancreatitis without necrosis or infection, unspecified Status: Acute Assessment and Plan: Lipase elevated at 3641 IV fluid resuscitation which will be stopped 12/09 due to congestive changes in chest x-ray CT indicates pancreatitis likely alcoholic related. LFTs are elevated as well. gallbladder ultrasound was gallbladder sludge with mild gallbladder wall thickening. ascites and hepatic steatosis Trend labs, including lipase which is been improving was started on clear liquid diet but will change to NPO due to his respiratory status and risk of aspiration WBC is 12.4 12/16/2021 interval history: patient with history of alcohol abuse presented with hypoglycemia, weakness and found to have pulmonary edema, cardiac echo is essentially normal, patient being diuresed, chest x-ray concerning of pneumonia treated with azithromycin and ceftriaxone added Flagyl to cover for anaerobics, patient was seen by GI recommended EGD however patient respiratory and clinically not stable, and GI has postponed EGD, patient appears chronically, unable to provide detail history or ROS. patient presented with alcohol levels of 105 on 12/06 so far he has not any sign of DT, however on 12/13 patient symptoms were worsen, he was obtunded, had labor breathing, was seen by light armored vehicle officer, evaluated the patient and recommended patient needs to be placed on ventilator, transfered the patient to ICU, light armored vehicle officer started patient on Cefepime, vancomycin, and flagyl, patient has septic shock and on levophed will maintain MAP >65mmHg today patient remains on vent, however pt hgb has dropped and seen by GI and will do EGD, spoke with light armored vehicle officer started patient on steroid due to alcholic hepatitis and billirubin is rising has elevated Maddrey score, appreciate light armored vehicle officer, will monitor and follow the patient in ICU. (3) Hypertension: Code(s): I10 - Essential (primary) hypertension Status: Acute Assessment and Plan: BP is hypotensive and hence all his blood pressure medication will be held Blood pressure is improved now (4) Severe sepsis: Code(s): A41.9 - Sepsis, unspecified organism; R65.20 - Severe sepsis without septic shock Status: Acute Assessment and Plan: Meets SIRS with tachycardiac, tachypnea, leukocytosis, acute confusion Source of infection could be the pancreas, blood with hypoglycemia Patient endorses some cough. Treat for sepsis related to pneumonia with vancomycin and cefepime also add azithromycin for atypical coverage Kidneys shows an CARLO Glucose was noted to be low Blood gas indicates metabolic acidosis Appears the patient received 2L of fluids in the ED IV fluid continued Trend labs Start on cefepime and Vanco until infection can be ruled out Also on azithromycin. Vancomycin discontinued. Blood culture 1/ positive for Staph epidermidis which is likely a contaminant (5) Metabolic acidosis: Code(s): E87.2 - Acidosis Status: Acute Assessment and Plan: ABG indicates metabolic acidosis Glucose is low Repeat ABG today with respiratory alkalosis likely due to congestive heart failure (6) Acute metabolic encephalopathy: Code(s): G93.41 - Metabolic encephalopathy Status: Acute Assessment and Plan: Was noted to be confused Could be from the hypoglycemia Likely related to underlying sepsis Lactic acid is high as well Head ct negative for acute findings Now showing signs of alcohol withdrawal with delirium overnight. Currently alert and oriented x3. If worsens will benefit from Precedex drip in ICU due to his poor respiratory status (7) A
[2021-12-16 17:31] LABS: Hematocrit 22.1 % (42.0-52.0); Hemoglobin 7.2 g/dL (14.0-18.0); Mean Corpuscular HGB Conc 32.6 g/dl (32-36); Mean Corpuscular Hemoglobin 30.8 pg (26-34); Mean Corpuscular Volume 94.4 fl (80-100); Mean Platelet Volume 10.9 fl (7.4-10.4); Platelet Count Result 111 k/mm3 (150-375); Red Blood Count 2.34 M/mm3 (4.6-6.20); Red Cell Distribution Width 20.8 % (11.5-14.5); White Blood Count 8.6 K/mm3 (4.5-10.0)
[2021-12-16 17:42] LABS: Fibrinogen 267 mg/dl (215-510); INR 1.6; Prothrombin Time 18.6 Seconds (11.1-14.7)
[2021-12-16 18:12] LABS: Glucose Point of Care 122 mg/dl (65-105)
[2021-12-16 18:16] LABS: Mean Platelet Volume 10.5 fl (7.4-10.4); Platelet Count Result 104 k/mm3 (150-375)
[2021-12-16 23:47] LABS: Pneumococcal Antigen Urine Not Detected (Not Detected)
[2021-12-16 23:56] LABS: Glucose Point of Care 138 mg/dl (65-105)
[2021-12-17] VITALS (46 sets, daily range): BP systolic 90–118; BP diastolic 58–91; PULSE 83–96; RESP 18–23; TEMP 36.3–36.6; O2SAT 89–99
[2021-12-17] MEDS: METOCLOPRAMIDE HCL 10 MG/10 ML SOLN UDC FEED TUBE ×4 (00:37→18:32)
[2021-12-17] MEDS: DEXTROSE 5%/0.45% SOD CHL 1,000 ML 50 ML IV CONT (00:38)
[2021-12-17] MEDS: IPRATROPIUM BR 0.02% INH SOLN 0.5 MG/2.5 ML VIAL 1 MG INHALATION ×4 (03:01→20:00)
[2021-12-17] MEDS: ALBUTEROL SULFATE NEB 2.5 MG/3 ML INH INHALATION ×4 (03:01→20:00)
[2021-12-17] MEDS: metroNIDAZOLE 500 MG/ISO 100ML 500 MG/100 ML BAG 100 MG IVPB ×3 (03:58→19:47)
[2021-12-17 06:05] LABS: Alveolar/Arterial O2 Gradient 125.2 mmHg; Arterial Blood Gas PEEP 8 cmH2O; Arterial Blood Gas Tidal Volume 450 ml; Arterial Blood Gas Vent Mode CMV; Arterial Blood Gas Ventilator rate 18 /MIN; Base Excess ABG -2.9 mEq/l (+/-2.0); Carboxyhemoglobin 0.3 % THb (0-2.0); Device VENTILATOR; Fractional Inspired Oxygen 35 %; HCO3 ABG 21.5 mEq/l (22.0-26.0); Methemoglobin ABG 0.5 %THb (0-1.5); Modified Allen's Test Pass; Oxygen Content ABG 12.6 %vol (16.0-22.0); Oxygen Saturation ABG 96.3 % (95.0-100.0); Oxyhemoglobin 94.6 % THb (90.0-100.0); PCO2 ABG 35.6 mmHg (35.0-45.0); PO2 FiO2 Ratio Arterial Blood 2.37 %; Reduced Hemoglobin 4.6 %THb (0-5.0); Site Drawn RIGHT RADIAL; Total Hemoglobin 9.4 g/dL (12.0-18.0); pH ABG 7.399 (7.350-7.450)
[2021-12-17 06:17] LABS: Basophils Percent Auto 0.3 % (0.2-1.2); Eosinophils Percent Auto 0.1 % (0-4.4); Hematocrit 23.4 % (42.0-52.0); Hemoglobin 7.8 g/dL (14.0-18.0); Immature Granulocyte Percent A 1.4 % (0-0.5); Lymphocytes Absolute Auto 0.39 K/mm3 (0.9-3.2); Lymphocytes Percent Auto 5.5 % (18.3-44.2); Mean Corpuscular HGB Conc 33.3 g/dl (32-36); Mean Corpuscular Volume 92.9 fl (80-100); Mean Platelet Volume 11.4 fl (7.4-10.4); Monocytes Absolute Auto 0.1 K/mm3 (0.1-0.6); Monocytes Percent Auto 1.4 % (2.6-8.5); Neutrophils Absolute Auto 6.5 K/mm3 (1.3-6.7); Neutrophils Percent Auto 91.3 % (45.5-73.1); Platelet Count Result 90 k/mm3 (150-375); Red Blood Count 2.52 M/mm3 (4.6-6.20); Red Cell Distribution Width 20.7 % (11.5-14.5); White Blood Count 7.1 K/mm3 (4.5-10.0)
[2021-12-17 06:29] LABS: Ammonia < 9 umol/L (9-30)
[2021-12-17 06:32] LABS: Alanine Aminotransferase 21 U/L (6-50); Alkaline Phosphatase 111 U/L (38-126); Anion Gap 16 mmol/L (8-16); Aspartate Amino Transferase 53 U/L (17-59); Bilirubin,Total 12.7 mg/dL (0.2-1.3); Blood Urea Nitrogen 46 mg/dL (9-20); Calcium 8.7 mg/dL (8.4-10.2); Carbon Dioxide 21 mmol/L (22-30); Chloride 98 mmol/L (98-107); Estimated CRCL calculation 60 ml/min; Estimated Glomerular Filt Rate > 60; Glucose 149 mg/dL (65-110); Magnesium 1.7 mg/dL (1.6-2.3); Potassium 3.7 mmol/L (3.4-5.0); Sodium 135 mmol/L (137-145)
[2021-12-17] MEDS: SALINE LOCK FLUSH 10 ML IV PUSH ×3 (06:37→20:39)
[2021-12-17 07:08] LABS: Anisocytosis 2+ (NORMAL); Microcytosis 2+ (NORMAL); Ovalocytes 1+ (NORMAL); Platelet Estimate Decreased (Adequate)
[2021-12-17 07:09] LABS: Schistocytes 1+ (NORMAL); Target Cells 1+ (NORMAL)
[2021-12-17 07:11] LABS: Phosphorus 3.8 mg/dL (2.5-4.5)
[2021-12-17] MEDS: DORNASE ALFA INH SOLN 1 MG/ML 2.5 ML AMP 2.5 MG INHALATION ×2 (07:44→20:00)
[2021-12-17] MEDS: PANTOPRAZOLE SODIUM IV 40 MG VIAL IV PUSH ×2 (09:02→20:39)
[2021-12-17] MEDS: THIAMINE HCL 200 MG/2 ML VIAL 100 MG IV PUSH (09:02)
[2021-12-17] MEDS: methylPREDNISolone SOD SUCC 40 MG VIAL IV PUSH (09:03)
[2021-12-17] MEDS: MINERAL OIL/WHITE PETROLATUM OINTMENT 1 APPLIC EACH EYE ×2 (09:03→20:39)
[2021-12-17] MEDS: MAGNESIUM SULF 2 GM/WATER 50ML 2 GM/50 ML BAG IVPB (09:15)
[2021-12-17] MEDS: FUROSEMIDE INJ 40 MG/4 ML VIAL IV PUSH (09:16)
[2021-12-17] MEDS: FOLIC ACID 1 MG/0.2 ML INJ IV PUSH (09:16)
[2021-12-17] MEDS: POTASSIUM CHLORIDE 20 MEQ PACKET (FOR LIQUID) FEED TUBE (09:18)
--- NOTE | 2021-12-17 09:22 | WPDINTPN ---
Progress Note: A&P Assessment and Plan (1) Acute respiratory failure with hypoxia: Code(s): J96.01 - Acute respiratory failure with hypoxia Status: Acute Assessment and Plan: Patient with increasing oxygen requirements due to the course of stay in the hospital -12/13/2021. Patient was intubated for respiratory failure and worsening chest x-ray -currently on CMV mode of ventilation, peep of 8 and 30% FiO2 FiO2 decreased to 40% -chest x-ray and ABGs reviewed -continue Flagyl, cefepime (12/13), discontinue vancomycin 12/17 since cultures have been -continue bronchodilators -currently on sedation holiday -his mental status precludes weaning and patient is also most likely going to get EGD today (2) Septic shock: Code(s): A41.9 - Sepsis, unspecified organism; R65.21 - Severe sepsis with septic shock Status: Acute Assessment and Plan: Patient dropped his pressures post intubation, likely related to positive pressure ventilation, decreased adrenergic surge -continue Levophed, maintained MAP > 65 mmHg -monitor urine output -lactic acids elevated could be related to decreased clearance due to liver dysfunction -continue antibiotics as above -continue albumin - DC IV fluids -Lasix IV today (3) Pneumonia: Code(s): J18.9 - Pneumonia, unspecified organism Status: Acute Assessment and Plan: Chest x-ray reviewed, likely bilateral pneumonia -12/13/2021 CTA chest and abdomen and pelvis: Did not show any pulmonary embolism, diffuse lung disease consistent with pulmonary edema versus pneumonia, moderate size pleural effusions. Acute interstitial pancreatitis, small volume ascites -continue antibiotics as above (4) Alcoholic hepatitis: Code(s): K70.10 - Alcoholic hepatitis without ascites Status: Acute Assessment and Plan: Patient has a history of alcoholic hepatitis -worsening bilirubin, LFTs elevated -12/13/2021: CT abdomen and pelvis showed acute interstitial pancreatitis, small volume ascites -GI following the patient - Maddrey's Discriminant Function is 42.8. 12/16 patient started ont Solu-Medrol 40 mg IV q.a.m. (5) Acute on chronic anemia: Code(s): D64.9 - Anemia, unspecified Status: Acute Assessment and Plan: Acute anemia, status post 1 unit of packed RBCs on 12/11 -12/14/2021: Received 1 unit of packed RBCs, patient does have some cold agglutinins and his blood has to come from [facility] -12/11 stool for occult blood is negative -appreciate GI evaluation and recommendations - 12/16 hemoglobin 6.8 today. Transfused 1 unit of PRBC -GI planning to perform EGD today (6) Metabolic acidosis: Code(s): E87.2 - Acidosis Status: Acute Assessment and Plan: Anion gap metabolic acidosis improved Monitor (7) Acute pancreatitis: Code(s): K85.90 - Acute pancreatitis without necrosis or infection, unspecified Status: Acute Assessment and Plan: Patient with acute pancreatitis on admission with elevated lipase levels -patient was treated with IV fluids, - lipase levels normalized -continue tube feeds (8) Thrombocytopenia: Code(s): D69.6 - Thrombocytopenia, unspecified Status: Acute Assessment and Plan: Likely related to alcoholic hepatitis, alcoholism, sepsis -this could be also consumptive secondary to anemia -no acute bleeding at this time noted -continue to monitor -12/14: Transfuse 1 unit of platelets - 12/16 transfuse 2 units of platelets (9) Electrolyte abnormality: Code(s): E87.8 - Other disorders of electrolyte and fluid balance, not elsewhere classified Status: Acute Assessment and Plan: Replace potassium and magnesium (10) Coagulopathy: Code(s): D68.9 - Coagulation defect, unspecified Status: Acute Assessment and Plan: 12/16 patient was given a dose of vitamin K Adequate fibrinogen level (11) Hypoglycemia: Code(s): E16.2 - H
[2021-12-17] MEDS: NOREPINEPHRINE 8 MG/D5W 250 ML 8 MG/250 ML BAG 3.75 MG IV CONT (10:29)
[2021-12-17 11:37] LABS: Thyroid Stimulating Hormone Reflex 0.749 uIU/mL (0.465-4.68)
[2021-12-17] MEDS: DEXTROSE 5%/LACTATED RINGERS 1,000 ML 50 ML IV CONT (11:47)
--- NOTE | 2021-12-17 12:10 | PCNFU ---
Nutrition Follow-Up Complete: Inadequate oral intake related to poor appetite as evidence by 40% intake, self reported past 2-3 months unintentional wt loss and clothes not fitting properly Goal: meal intake 75% or great and complete intake of nutritional supplement Patient is has limited progress on goal. We will continue current goal. Pt current nutrition is NPO. Nutrition recommendation:Vital AF 1.2 at 30 ml/hr, recommend goal rate at 65 ml/hr. Last recorded weight is 65.8 kg, up from 58.4 kg on admit. Bowel Motility:No BM reported Labs Reviewed:BUN 46, Glu 149, Na 135, Hct 23.4,Hgb 7.8 Meds Noted:Reglan, Levophed, Lasix, Folic Acid, Thiamine, Protonix, Vancomycin Skin: WNL Additional Notes: Patient currently NPO for EGD today. Tube feeding residuals had been elevated overnight, Reglan started. Will monitor in ICU rounds and reassessing every Thursday and Thursday.
[2021-12-17 12:28] LABS: Glucose Point of Care 130 mg/dl (65-105)
--- NOTE | 2021-12-17 14:02 | SUR.OPER ---
ICU Fish Icer and ICU nurse Charity taking care of sedation for the EGD.
[2021-12-17] MEDS: PROPOFOL IV EMULSION 100 ML 9.87 MG IV CONT (14:05)
--- NOTE | 2021-12-17 15:02 | P.PNIM_ITS ---
Progress Note: A&P Assessment and Plan (1) Neuropathy: Code(s): G62.9 - Polyneuropathy, unspecified Status: Acute Assessment and Plan: * Continue home gabapentin * Trend symptoms (2) Acute pancreatitis: Code(s): K85.90 - Acute pancreatitis without necrosis or infection, unspecified Status: Acute Assessment and Plan: * Lipase elevated at 3641 * IV fluid resuscitation which will be stopped 12/09 due to congestive changes in chest x-ray * CT indicates pancreatitis likely alcoholic related. LFTs are elevated as well. gallbladder ultrasound was gallbladder sludge with mild gallbladder wall thickening. ascites and hepatic steatosis * Trend labs, including lipase which is been improving * was started on clear liquid diet but will change to NPO due to his respiratory status and risk of aspiration * WBC is 12.4 12/17/2021 interval history: patient with history of alcohol abuse presented with hypoglycemia, weakness and found to have pulmonary edema, cardiac echo is essentially normal, patient being diuresed, chest x-ray concerning of pneumonia treated with azithromycin and ceftriaxone added Flagyl to cover for anaerobics, patient was seen by GI recommended EGD however patient respiratory and clinically not stable, and GI has postponed EGD, patient appears chronically, unable to provide detail history or ROS. patient presented with alcohol levels of 105 on 12/06 so far he has not any sign of DT, however on 12/13 patient symptoms were worsen, he was obtunded, had labor breathing, was seen by exercise physiologist certified, evaluated the patient and recommended patient needs to be placed on ventilator, transfered the patient to ICU, exercise physiologist certified started patient on Cefepime, vancomycin, and flagyl, patient has septic shock and on levophed will maintain MAP >65mmHg today patient remains on vent, however pt hgb has dropped and seen by GI and plan is to do EGD today, spoke with exercise physiologist certified started patient on steroid due to alcholic hepatitis and billirubin is rising has elevated Maddrey score, appreciate exercise physiologist certified, will monitor and follow the patient in ICU. (3) Hypertension: Code(s): I10 - Essential (primary) hypertension Status: Acute Assessment and Plan: * BP is hypotensive and hence all his blood pressure medication will be held Blood pressure is improved now (4) Severe sepsis: Code(s): A41.9 - Sepsis, unspecified organism; R65.20 - Severe sepsis without septic shock Status: Acute Assessment and Plan: * Meets SIRS with tachycardiac, tachypnea, leukocytosis, acute confusion * Source of infection could be the pancreas, blood with hypoglycemia Patient endorses some cough. Treat for sepsis related to pneumonia with vancomycin and cefepime also add azithromycin for atypical coverage * Kidneys shows an CARLO * Glucose was noted to be low * Blood gas indicates metabolic acidosis * Appears the patient received 2L of fluids in the ED * IV fluid continued * Trend labs * Start on cefepime and Vanco until infection can be ruled out Also on azithromycin. * Vancomycin discontinued. Blood culture 1/ positive for Staph epidermidis which is likely a contaminant (5) Metabolic acidosis: Code(s): E87.2 - Acidosis Status: Acute Assessment and Plan: * ABG indicates metabolic acidosis * Glucose is low Repeat ABG today with respiratory alkalosis likely due to congestive heart failure (6) Acute metabolic encephalopathy: Code(s): G93.41 - Metabolic encep
--- NOTE | 2021-12-17 15:02 | PM.IMPN ---
Progress Note: A&P Assessment and Plan (1) Neuropathy: Code(s): G62.9 - Polyneuropathy, unspecified Status: Acute Assessment and Plan: Continue home gabapentin Trend symptoms (2) Acute pancreatitis: Code(s): K85.90 - Acute pancreatitis without necrosis or infection, unspecified Status: Acute Assessment and Plan: Lipase elevated at 3641 IV fluid resuscitation which will be stopped 12/09 due to congestive changes in chest x-ray CT indicates pancreatitis likely alcoholic related. LFTs are elevated as well. gallbladder ultrasound was gallbladder sludge with mild gallbladder wall thickening. ascites and hepatic steatosis Trend labs, including lipase which is been improving was started on clear liquid diet but will change to NPO due to his respiratory status and risk of aspiration WBC is 12.4 12/17/2021 interval history: patient with history of alcohol abuse presented with hypoglycemia, weakness and found to have pulmonary edema, cardiac echo is essentially normal, patient being diuresed, chest x-ray concerning of pneumonia treated with azithromycin and ceftriaxone added Flagyl to cover for anaerobics, patient was seen by GI recommended EGD however patient respiratory and clinically not stable, and GI has postponed EGD, patient appears chronically, unable to provide detail history or ROS. patient presented with alcohol levels of 105 on 12/06 so far he has not any sign of DT, however on 12/13 patient symptoms were worsen, he was obtunded, had labor breathing, was seen by roof promenade tile setter, evaluated the patient and recommended patient needs to be placed on ventilator, transfered the patient to ICU, roof promenade tile setter started patient on Cefepime, vancomycin, and flagyl, patient has septic shock and on levophed will maintain MAP >65mmHg today patient remains on vent, however pt hgb has dropped and seen by GI and plan is to do EGD today, spoke with roof promenade tile setter started patient on steroid due to alcholic hepatitis and billirubin is rising has elevated Maddrey score, appreciate roof promenade tile setter, will monitor and follow the patient in ICU. (3) Hypertension: Code(s): I10 - Essential (primary) hypertension Status: Acute Assessment and Plan: BP is hypotensive and hence all his blood pressure medication will be held Blood pressure is improved now (4) Severe sepsis: Code(s): A41.9 - Sepsis, unspecified organism; R65.20 - Severe sepsis without septic shock Status: Acute Assessment and Plan: Meets SIRS with tachycardiac, tachypnea, leukocytosis, acute confusion Source of infection could be the pancreas, blood with hypoglycemia Patient endorses some cough. Treat for sepsis related to pneumonia with vancomycin and cefepime also add azithromycin for atypical coverage Kidneys shows an CARLO Glucose was noted to be low Blood gas indicates metabolic acidosis Appears the patient received 2L of fluids in the ED IV fluid continued Trend labs Start on cefepime and Vanco until infection can be ruled out Also on azithromycin. Vancomycin discontinued. Blood culture / positive for Staph epidermidis which is likely a contaminant (5) Metabolic acidosis: Code(s): E87.2 - Acidosis Status: Acute Assessment and Plan: ABG indicates metabolic acidosis Glucose is low Repeat ABG today with respiratory alkalosis likely due to congestive heart failure (6) Acute metabolic encephalopathy: Code(s): G93.41 - Metabolic encephalopathy Status: Acute Assessment and Plan: Was noted to be confused Could be from the hypoglycemia Likely related to underlying sepsis Lactic acid is high as well Head ct negative for acute findings Now showing signs of alcohol withdrawal with delirium overnight. Currently alert and oriented x3. If worsens will benefit from Precedex drip in ICU due to his poor respiratory status
[2021-12-17 15:49] LABS: Legionella pneumophila Ag Ur Not Detected (Not Detected)
[2021-12-17 17:55] LABS: Vancomycin Trough 33.5 ug/mL (10.0-20.0)
[2021-12-17 19:24] LABS: Glucose Point of Care 130 mg/dl (65-105)
[2021-12-17 21:00] LABS: Glucose Point of Care 142 mg/dl (65-105)
[2021-12-18] VITALS (30 sets, daily range): BP systolic 98–111; BP diastolic 64–81; PULSE 81–114; RESP 18–34; TEMP 36.2–36.8; O2SAT 93–99
[2021-12-18] MEDS: IPRATROPIUM BR 0.02% INH SOLN 0.5 MG/2.5 ML VIAL 1 MG INHALATION ×2 (00:05→04:04)
[2021-12-18] MEDS: ALBUTEROL SULFATE NEB 2.5 MG/3 ML INH INHALATION ×2 (00:05→04:04)
[2021-12-18] MEDS: METOCLOPRAMIDE HCL 10 MG/10 ML SOLN UDC FEED TUBE ×3 (00:25→11:22)
[2021-12-18 00:31] LABS: Glucose Point of Care 133 mg/dl (65-105)
[2021-12-18] MEDS: metroNIDAZOLE 500 MG/ISO 100ML 500 MG/100 ML BAG 100 MG IVPB ×3 (04:09→19:57)
[2021-12-18 05:38] LABS: Basophils Percent Auto 0.2 % (0.2-1.2); Hematocrit 21.9 % (42.0-52.0); Hemoglobin 7.2 g/dL (14.0-18.0); Immature Granulocyte Absolute 0.06 K/mm3 (0.00-0.031); Immature Platelet Fraction Pct 6.5 % (0.9-11.2); Lymphocytes Percent Auto 8.1 % (18.3-44.2); Mean Corpuscular HGB Conc 32.9 g/dl (32-36); Mean Corpuscular Hemoglobin 30.3 pg (26-34); Mean Platelet Volume 11.6 fl (7.4-10.4); Monocytes Absolute Auto 0.2 K/mm3 (0.1-0.6); Monocytes Percent Auto 3.1 % (2.6-8.5); Neutrophils Absolute Auto 5.4 K/mm3 (1.3-6.7); Neutrophils Percent Auto 87.6 % (45.5-73.1); Red Blood Count 2.38 M/mm3 (4.6-6.20); White Blood Count 6.2 K/mm3 (4.5-10.0)
[2021-12-18] MEDS: SALINE LOCK FLUSH 10 ML IV PUSH ×3 (05:40→20:37)
[2021-12-18 05:42] LABS: Alanine Aminotransferase 21 U/L (6-50); Albumin Level 2.6 g/dL (3.5-5.1); Alkaline Phosphatase 240 U/L (38-126); Anion Gap 15 mmol/L (8-16); Aspartate Amino Transferase 59 U/L (17-59); Bilirubin,Total 13.2 mg/dL (0.2-1.3); Blood Urea Nitrogen 63 mg/dL (9-20); Calcium 8.1 mg/dL (8.4-10.2); Carbon Dioxide 17 mmol/L (22-30); Chloride 103 mmol/L (98-107); Estimated CRCL calculation 45 ml/min; Estimated Glomerular Filt Rate 48; Glucose 202 mg/dL (65-110); Magnesium 2.2 mg/dL (1.6-2.3); Phosphorus 4.5 mg/dL (2.5-4.5); Potassium 3.8 mmol/L (3.4-5.0); Sodium 135 mmol/L (137-145)
[2021-12-18 05:48] LABS: Base Excess ABG -2.4 mEq/l (+/-2.0); Carboxyhemoglobin 0.3 % THb (0-2.0); Device VENTILATOR; Fractional Inspired Oxygen 30 %; HCO3 ABG 21.5 mEq/l (22.0-26.0); Methemoglobin ABG 0.4 %THb (0-1.5); Modified Allen's Test Unable to perform; Oxygen Content ABG 12.2 %vol (16.0-22.0); Oxygen Saturation ABG 95.8 % (95.0-100.0); Oxyhemoglobin 93.7 % THb (90.0-100.0); PCO2 ABG 33.2 mmHg (35.0-45.0); PO2 ABG 76.9 mmHg (80.0-100.0); PO2 FiO2 Ratio Arterial Blood 2.56 %; Reduced Hemoglobin 5.6 %THb (0-5.0); Site Drawn RIGHT RADIAL; Total Hemoglobin 9.2 g/dL (12.0-18.0); pH ABG 7.429 (7.350-7.450)
[2021-12-18 05:49] LABS: Arterial Blood Gas PEEP 8 cmH2O; Arterial Blood Gas Tidal Volume 450 ml; Arterial Blood Gas Vent Mode CMV; Arterial Blood Gas Ventilator rate 18 /MIN
[2021-12-18 05:54] LABS: Platelet Count Result 39 k/mm3 (150-375)
[2021-12-18 08:54] LABS: Lactate Dehydrogenase 180 U/L (120-246)
[2021-12-18 08:58] LABS: INR 1.6; Prothrombin Time 18.5 Seconds (11.1-14.7)
--- NOTE | 2021-12-18 09:04 | WPDINTPN ---
Progress Note: A&P Assessment and Plan (1) Acute respiratory failure with hypoxia: Code(s): J96.01 - Acute respiratory failure with hypoxia Status: Acute Assessment and Plan: Patient with increasing oxygen requirements due to the course of stay in the hospital -12/13/2021. Patient was intubated for respiratory failure and worsening chest x-ray -currently on CMV mode of ventilation, peep of 8 and 30% FiO2 -chest x-ray and ABGs reviewed -continue Flagyl, cefepime (12/13), discontinue vancomycin 12/17 since cultures have been negative -continue bronchodilators -currently on sedation holiday -his mental status precludes weaning 12/17 CT chest Stable diffuse lung disease, consistent with pulmonary edema versus pneumonia versus acute respiratory distress syndrome (ARDS). Stable moderate-sized pleural effusions. Ultrasound-guided diagnostic and therapeutic thoracentesis ordered for the right side. He will likely need thoracentesis on both sides as he is not responsive to diuretics (2) Septic shock: Code(s): A41.9 - Sepsis, unspecified organism; R65.21 - Severe sepsis with septic shock Status: Acute Assessment and Plan: Patient dropped his pressures post intubation, likely related to positive pressure ventilation, decreased adrenergic surge -continue Levophed, maintained MAP > 65 mmHg -monitor urine output -lactic acids elevated could be related to decreased clearance due to liver dysfunction -continue antibiotics as above -continue albumin - DC IV fluids (3) Pneumonia: Code(s): J18.9 - Pneumonia, unspecified organism Status: Acute Assessment and Plan: Chest x-ray reviewed, likely bilateral pneumonia -12/13/2021 CTA chest and abdomen and pelvis: Did not show any pulmonary embolism, diffuse lung disease consistent with pulmonary edema versus pneumonia, moderate size pleural effusions. Acute interstitial pancreatitis, small volume ascites -continue antibiotics as above (4) Alcoholic hepatitis: Code(s): K70.10 - Alcoholic hepatitis without ascites Status: Acute Assessment and Plan: Patient has a history of alcoholic hepatitis -worsening bilirubin, LFTs elevated -12/13/2021: CT abdomen and pelvis showed acute interstitial pancreatitis, small volume ascites -GI following the patient - Amberly's Discriminant Function is 42.8. 12/16 patient started ont Solu-Medrol 40 mg IV q.a.m. (5) Acute on chronic anemia: Code(s): D64.9 - Anemia, unspecified Status: Acute Assessment and Plan: Acute anemia, status post 1 unit of packed RBCs on 12/11 -12/14/2021: Received 1 unit of packed RBCs, patient does have some cold agglutinins and his blood has to come from [facility] -12/11 stool for occult blood is negative -appreciate GI evaluation and recommendations - 12/16 hemoglobin 6.8 today. Transfused 1 unit of PRBC -12/17 EGD showed reflux esophagitis and hiatal hernia Continue IV PPI (6) Acute pancreatitis: Code(s): K85.90 - Acute pancreatitis without necrosis or infection, unspecified Status: Acute Assessment and Plan: Patient with acute pancreatitis on admission with elevated lipase levels -patient was treated with IV fluids, - lipase levels normalized -continue tube feeds as tolerated (7) Thrombocytopenia: Code(s): D69.6 - Thrombocytopenia, unspecified Status: Acute Assessment and Plan: Likely related to alcoholic hepatitis, alcoholism, sepsis -this could be also consumptive secondary to anemia -no acute bleeding at this time noted -continue to monitor -12/14: Transfuse 1 unit of platelets - 12/16 transfuse 2 units of platelets (8) Electrolyte abnormality: Code(s): E87.8 - Other disorders of electrolyte and fluid balance, not elsewhere classified Status: Acute Assessment and Plan: Replace potassium and magnesium (9) Coagulopathy: Code(s): D68.9 - Coagulation defect, unspecifi
[2021-12-18] MEDS: ALBUMIN HUMAN 5% 25 GM/500 ML BTL IV CONT (09:33)
[2021-12-18] MEDS: PANTOPRAZOLE SODIUM IV 40 MG VIAL IV PUSH ×2 (09:36→20:38)
[2021-12-18] MEDS: THIAMINE HCL 200 MG/2 ML VIAL 100 MG IV PUSH (09:36)
[2021-12-18] MEDS: methylPREDNISolone SOD SUCC 40 MG VIAL IV PUSH (09:36)
[2021-12-18] MEDS: MINERAL OIL/WHITE PETROLATUM OINTMENT 1 APPLIC EACH EYE ×2 (09:36→20:38)
[2021-12-18] MEDS: FOLIC ACID 1 MG/0.2 ML INJ IV PUSH (09:42)
[2021-12-18] MEDS: polyethylene glycoL 3350 17 GM POWD.PACK PO (11:21)
[2021-12-18] MEDS: ALBUMIN HUMAN 25% 25 GM/100 ML 100 ML IVPB ×3 (11:22→23:18)
[2021-12-18] MEDS: DOCUSATE SODIUM LIQ 100 MG/10 ML UDC FEED TUBE ×2 (11:22→20:38)
--- NOTE | 2021-12-18 11:22 | PCFNICU ---
ICU Rounding Note: Pt current nutrition is Vital AF 1.2 at 30ml/hr over 22 hours. Last recorded weight is 66.1 kg-stable Bowel Motility: No BM reported-Colace, Miralax started. Labs Reviewed: Glu 202, Cr 1.5,BUN 63, GFR 48, Na 135, Alb 2.6,Hct 21.9,Hgb 7.2 Meds Noted:Solu Medrol, Reglan, Levophed, Lasix, Folic Acid, Thiamine, Protonix, Vancomycin Skin: WNL Additional Notes: Patient remains on mechanical vent and tube feedings of Vital AF 1.2 at 30 ml/hr, due to high residuals. Plans for EEG and possible thoracentesis. EGD showing Hiatal hernia and gastritis. Once patient is able to tolerate tube feedings recommend goal rate at 65 ml/hr. Free water flush 30 ml q 4 hours. Agree with diet orders. Monitoring: ICU rounds and reassessing every Thursday and Thursday.
--- NOTE | 2021-12-18 11:30 | PM.IMPN ---
Progress Note: A&P Assessment and Plan (1) Acute respiratory failure with hypoxia: Code(s): J96.01 - Acute respiratory failure with hypoxia Status: Acute (2) Septic shock: Code(s): A41.9 - Sepsis, unspecified organism; R65.21 - Severe sepsis with septic shock Status: Acute (3) Pneumonia: Code(s): J18.9 - Pneumonia, unspecified organism Status: Acute (4) Alcoholic hepatitis: Code(s): K70.10 - Alcoholic hepatitis without ascites Status: Acute (5) Acute on chronic anemia: Code(s): D64.9 - Anemia, unspecified Status: Acute (6) Acute pancreatitis: Code(s): K85.90 - Acute pancreatitis without necrosis or infection, unspecified Status: Acute (7) Thrombocytopenia: Code(s): D69.6 - Thrombocytopenia, unspecified Status: Acute (8) Electrolyte abnormality: Code(s): E87.8 - Other disorders of electrolyte and fluid balance, not elsewhere classified Status: Acute (9) Coagulopathy: Code(s): D68.9 - Coagulation defect, unspecified Status: Acute (10) Hypoglycemia: Code(s): E16.2 - Hypoglycemia, unspecified Status: Acute (11) Encephalopathy: Code(s): G93.40 - Encephalopathy, unspecified Status: Acute (12) CARLO (acute kidney injury): Code(s): N17.9 - Acute kidney failure, unspecified Status: Acute Plan ?12/17/21 patient with history of alcohol abuse presented with hypoglycemia, weakness and found to have pulmonary edema, cardiac echo is essentially normal, patient being diuresed, chest x-ray concerning of pneumonia treated with azithromycin and ceftriaxone added Flagyl to cover for anaerobics, patient was seen by GI recommended EGD however patient respiratory and clinically not stable, and GI has postponed EGD, patient appears chronically, unable to provide detail history or ROS. patient presented with alcohol levels of 105 on 12/06 so far he has not any sign of DT, however on 12/13 patient symptoms were worsen, he was obtunded, had labor breathing, was seen by unpaid intern, evaluated the patient and recommended patient needs to be placed on ventilator,? transfered? the patient to ICU, unpaid intern started patient on Cefepime, vancomycin, and flagyl, patient has septic shock and on levophed will maintain MAP >65mmHg? today patient remains on vent, however pt hgb has dropped and seen by GI and plan is to do EGD today,? spoke with unpaid intern started patient on steroid due to alcholic hepatitis and billirubin is rising has elevated Maddrey score, ? appreciate unpaid intern, will monitor and follow the patient in ICU.? ? 12/18/21 primary management per unpaid intern pt remains intubated transfused multiple U of plts and RBCs GI following prognosis appears poor Subjective Date/time seen: 12/18/21 11:30 intubated and sedated Review of Systems Review of Systems: ROS unobtainable: Yes unobtainable due to endotracheal tube Exam Narrative: GEN appears chronically ill older than his age HEENT: ET tube in place LUNGS: symmetric chest rise on vent ABD: not distended SKIN: UE edematous and weeping, jaundiced Objective Data Vital Signs Vital Signs: Vital Signs - 24 hr 12/17/21 12:00 12/17/21 12:00 12/17/21 12:00 Temperature 97.3 F L Pulse Rate 87 89 Respiratory Rate 18 Blood Pressure 97/72 L Pulse Oximetry 94 94 Oxygen Delivery Mechanical Ventilation Fraction of Inspired Oxygen 30 12/17/21 12:00 12/17/21 13:00 12/17/21 13:06 Temperature Pulse Rate 83 87 Respiratory Rate 18 Blood Pressure Pulse Oximetry 94 Oxygen Delivery Mechanical Ventilation Fraction of Inspired Oxygen 30 30 12/17/21 13:55 12/17/21 14:14 12/17/21 14:21 Temperature 97.3 F L 97.4 F L 97.4 F L Pulse Rate 89 94 91 Respiratory Rate 18 18 18 Blood Pressure 97/69 L 94/71 L 118/86 Pulse Oximetry 94 94 99 Oxygen Delivery Mechanical Ventilation Mechanical Ventilation Mec
[2021-12-18 11:46] LABS: Glucose Point of Care 126 mg/dl (65-105)
--- NOTE | 2021-12-18 12:57 | WPDGIPROGNO ---
Progress Note: A&P Assessment and Plan (1) Alcoholic hepatitis: Code(s): K70.10 - Alcoholic hepatitis without ascites Status: Acute Assessment and Plan: elevated Maddrey score, on iv steroids prognosis is guarded medical support agree with iv reglan, has not been tolerating tube feeding (2) Acute on chronic anemia: Code(s): D64.9 - Anemia, unspecified Status: Acute Assessment and Plan: only esophagitis, no signs of bleeding anemia is multifactorial (3) Acute respiratory failure with hypoxia: Code(s): J96.01 - Acute respiratory failure with hypoxia Status: Acute Assessment and Plan: he is currently intubated, on iv antibiotics for pneumonia (4) Acute metabolic encephalopathy: Code(s): G93.41 - Metabolic encephalopathy Status: Acute Assessment and Plan: getting EEG, still obtunded (5) Thrombocytopenia: Code(s): D69.6 - Thrombocytopenia, unspecified Status: Acute Assessment and Plan: s/p platelets transfusion from severe alcoholic hepatitis, sepsis, pancreatitis, etc (6) Coagulopathy: Code(s): D68.9 - Coagulation defect, unspecified Status: Acute Subjective Date/time seen: 12/18/21 12:57 Interval history: egd yesterday with esophagitis but no signs of bleeding, no varices. Still intubated and no major changes, not tolerating TF by OGT Review of Systems Review of Systems: All systems reviewed & are unremarkable except as noted in HPI and below Exam Narrative: General: Patient intubated in no distress HEENT:? Pupils are reactive, sclera is icteric, ETT in place Neck:? Supple Respiratory:? coarse breath sounds b/l, adequate air entry Cardiac:? sinus tacycardia, S1 S2 normal Abdomen:? soft, non tender, non distended, hypoactive bowel sounds Extremities:? Upper extremity bruising, no edema, palpable pedal pulses Neuro:? Patient is intubated, off sedation, opens his eyes on sternal rub, withdraws to painful stimuli, resists exam by trying to shut eyes, does not follow commands, PERRL Skin:? Jaundiced Psych:? Unable to assess at this time Objective Data Vital Signs Vital Signs: Vital Signs - 24 hr 12/17/21 13:00 12/17/21 13:06 12/17/21 13:55 Temperature 97.3 F L Pulse Rate 83 87 89 Respiratory Rate 18 18 Blood Pressure 97/69 L Pulse Oximetry 94 94 Oxygen Delivery Mechanical Ventilation Mechanical Ventilation Fraction of Inspired Oxygen 30 12/17/21 14:14 12/17/21 14:21 12/17/21 14:17 Temperature 97.4 F L 97.4 F L 97.4 F L Pulse Rate 94 91 91 Respiratory Rate 18 18 18 Blood Pressure 94/71 L 118/86 104/82 Pulse Oximetry 94 99 89 L Oxygen Delivery Mechanical Ventilation Mechanical Ventilation Mechanical Ventilation Fraction of Inspired Oxygen 12/17/21 14:00 12/17/21 14:00 12/17/21 14:05 Temperature 97.3 F L 97.3 F L Pulse Rate 92 92 95 Respiratory Rate 18 18 Blood Pressure 102/76 96/78 L Pulse Oximetry 94 91 Oxygen Delivery Fraction of Inspired Oxygen 12/17/21 14:07 12/17/21 14:09 12/17/21 14:11 Temperature 97.3 F L 97.3 F L 97.3 F L Pulse Rate 96 94 95 Respiratory Rate 19 18 18 Blood Pressure 101/77 101/73 98/70 L Pulse Oximetry 94 94 94 Oxygen Delivery Fraction of Inspired Oxygen 12/17/21 14:13 12/17/21 14:15 12/17/21 14:17 Temperature 97.4 F L 97.4 F L 97.4 F L Pulse Rate 93 86 89 Respiratory Rate 18 22 H 23 H Blood Pressure 94/71 L 100/77 104/82 Pulse Oximetry 94 93 89 L Oxygen Delivery Fraction of Inspired Oxygen 12/17/21 14:19 12/17/21 14:23 12/17/21 14:31 Temperature 97.4 F L 97.4 F L 97.4 F L Pulse Rate 92 92 95 Respiratory Rate 18 18 18 Blood Pressure 116/91 H 106/76 90/74 L Pulse Oximetry 99 97 94 Oxygen Delivery Fraction of Inspired Oxygen 12/17/21 14:32 12/17/21 14:34 12/17/21 14:36 Temperature 97.4 F L 97.5 F L 97.5 F L Pulse Rate 96 94 95 Respiratory Rate 18 18 18 Blood Pressure Pulse Oxime
[2021-12-18] MEDS: SODIUM CHLORIDE 0.9% IV 250 ML 30 ML IV CONT (15:00)
[2021-12-18] MEDS: METOCLOPRAMIDE HCL INJ 10 MG/2 ML VIAL IV PUSH ×2 (18:23→23:18)
[2021-12-18 18:39] LABS: Glucose Point of Care 118 mg/dl (65-105)
[2021-12-18 19:16] LABS: Appearance Pleural Fluid Clear (Clear); Color Pleural Fluid Yellow (Colorless); Pleural fluid source Pleural fluid
[2021-12-18 19:17] LABS: Lymphocytes Pleural Fluid 11 %; Macrophages Pleural Fluid 4 %; Monocytes Pleural Fluid 64 %; Neutrophils Pleural Fluid 21 % (0-25); Nucleated Cell Pleural Fluid 84 /uL (0-1000); RBC Pleural Fluid 94 /uL (0-0)
[2021-12-18 23:57] LABS: Glucose Point of Care 115 mg/dl (65-105)
[2021-12-19] VITALS (33 sets, daily range): BP systolic 102–121; BP diastolic 67–94; PULSE 98–140; RESP 17–31; TEMP 36.5–37.2; O2SAT 90–98
[2021-12-19] MEDS: metroNIDAZOLE 500 MG/ISO 100ML 500 MG/100 ML BAG 100 MG IVPB ×3 (03:35→20:15)
[2021-12-19] MEDS: ALBUMIN HUMAN 25% 25 GM/100 ML 100 ML IVPB (05:11)
[2021-12-19] MEDS: SALINE LOCK FLUSH 10 ML IV PUSH ×3 (05:15→22:21)
[2021-12-19] MEDS: METOCLOPRAMIDE HCL INJ 10 MG/2 ML VIAL IV PUSH ×4 (05:15→23:49)
[2021-12-19 05:23] LABS: Base Excess ABG -2.4 mEq/l (+/-2.0); Carboxyhemoglobin 0.3 % THb (0-2.0); Fractional Inspired Oxygen 35 %; HCO3 ABG 21.5 mEq/l (22.0-26.0); Methemoglobin ABG 0.6 %THb (0-1.5); Oxygen Content ABG 9.3 %vol (16.0-22.0); Oxygen Saturation ABG 96.8 % (95.0-100.0); Oxyhemoglobin 94.1 % THb (90.0-100.0); PCO2 ABG 32.6 mmHg (35.0-45.0); PO2 ABG 84.7 mmHg (80.0-100.0); PO2 FiO2 Ratio Arterial Blood 2.42 %; Site Drawn RIGHT RADIAL; Total Hemoglobin 6.9 g/dL (12.0-18.0); pH ABG 7.437 (7.350-7.450)
[2021-12-19 05:24] LABS: Arterial Blood Gas PEEP 8 cmH2O; Arterial Blood Gas Tidal Volume 450 ml; Arterial Blood Gas Vent Mode CMV; Arterial Blood Gas Ventilator rate 18 /MIN; Device VENTILATOR; Modified Allen's Test Unable to perform
[2021-12-19 05:47] LABS: Immature Platelet Fraction Pct 3.8 % (0.9-11.2); Mean Corpuscular HGB Conc 33.5 g/dl (32-36); Mean Corpuscular Hemoglobin 30.1 pg (26-34); Mean Corpuscular Volume 89.8 fl (80-100); Mean Platelet Volume 10.8 fl (7.4-10.4); Platelet Count Result 95 k/mm3 (150-375); Red Blood Count 1.96 M/mm3 (4.6-6.20); Red Cell Distribution Width 19.8 % (11.5-14.5); White Blood Count 3.9 K/mm3 (4.5-10.0)
[2021-12-19 05:54] LABS: Hematocrit 17.6 % (42.0-52.0); Hemoglobin 5.9 g/dL (14.0-18.0)
[2021-12-19 05:59] LABS: Alanine Aminotransferase 22 U/L (6-50); Albumin Level 3.8 g/dL (3.5-5.1); Alkaline Phosphatase 252 U/L (38-126); Anion Gap 15 mmol/L (8-16); Aspartate Amino Transferase 58 U/L (17-59); Blood Urea Nitrogen 80 mg/dL (9-20); Calcium 9.4 mg/dL (8.4-10.2); Carbon Dioxide 20 mmol/L (22-30); Chloride 101 mmol/L (98-107); Estimated CRCL calculation 42 ml/min; Estimated Glomerular Filt Rate 41; Glucose 98 mg/dL (65-110); Magnesium 2.2 mg/dL (1.6-2.3); Potassium 3.3 mmol/L (3.4-5.0); Sodium 136 mmol/L (137-145)
[2021-12-19] MEDS: POTASSIUM CHLORIDE INJ 40 MEQ in SODIUM CHLORIDE 0.9% IV 500 ML 130 MEQ IVPB (08:05)
[2021-12-19] MEDS: FOLIC ACID 1 MG/0.2 ML INJ IV PUSH (08:07)
[2021-12-19] MEDS: THIAMINE HCL 200 MG/2 ML VIAL 100 MG IV PUSH (08:10)
[2021-12-19] MEDS: methylPREDNISolone SOD SUCC 40 MG VIAL IV PUSH (08:11)
[2021-12-19] MEDS: PANTOPRAZOLE SODIUM IV 40 MG VIAL IV PUSH ×2 (08:11→20:16)
[2021-12-19] MEDS: MINERAL OIL/WHITE PETROLATUM OINTMENT 1 APPLIC EACH EYE ×2 (08:12→20:16)
[2021-12-19] MEDS: polyethylene glycoL 3350 17 GM POWD.PACK PO (08:12)
[2021-12-19] MEDS: DOCUSATE SODIUM LIQ 100 MG/10 ML UDC FEED TUBE (08:12)
[2021-12-19] MEDS: SODIUM CHLORIDE 0.9% IV 250 ML 30 ML IV CONT (08:17)
--- NOTE | 2021-12-19 08:48 | WPDINTPN ---
Progress Note: A&P Assessment and Plan (1) Acute respiratory failure with hypoxia: Code(s): J96.01 - Acute respiratory failure with hypoxia Status: Acute Assessment and Plan: Patient with increasing oxygen requirements due to the course of stay in the hospital -12/13/2021. Patient was intubated for respiratory failure and worsening chest x-ray -currently on CMV mode of ventilation, peep of 8 and 30% FiO2 -chest x-ray and ABGs reviewed -continue Flagyl, cefepime (12/13), discontinued vancomycin 12/17 since cultures have been negative -continue bronchodilators -currently on sedation holiday -his mental status precludes weaning 12/17 CT chest Stable diffuse lung disease, consistent with pulmonary edema versus pneumonia versus acute respiratory distress syndrome (ARDS). Stable moderate-sized pleural effusions. 12/18 ultrasound-guided right thoracentesis -620 mL fluid was removed 12/19 -will request thoracentesis on the left side Patient poorly responsive to diuretics (2) Septic shock: Code(s): A41.9 - Sepsis, unspecified organism; R65.21 - Severe sepsis with septic shock Status: Acute Assessment and Plan: Patient dropped his pressures post intubation, likely related to positive pressure ventilation, decreased adrenergic surge -continue Levophed, maintained MAP > 65 mmHg -monitor urine output -lactic acids elevated could be related to decreased clearance due to liver dysfunction -continue antibiotics as above -continue albumin -off IV fluids (3) Pneumonia: Code(s): J18.9 - Pneumonia, unspecified organism Status: Acute Assessment and Plan: Chest x-ray reviewed, likely bilateral pneumonia -12/13/2021 CTA chest and abdomen and pelvis: Did not show any pulmonary embolism, diffuse lung disease consistent with pulmonary edema versus pneumonia, moderate size pleural effusions. Acute interstitial pancreatitis, small volume ascites -continue antibiotics as above (4) Alcoholic hepatitis: Code(s): K70.10 - Alcoholic hepatitis without ascites Status: Acute Assessment and Plan: Patient has a history of alcoholic hepatitis -worsening bilirubin, LFTs elevated -12/13/2021: CT abdomen and pelvis showed acute interstitial pancreatitis, small volume ascites -GI following the patient - Amberly's Discriminant Function is 42.8. 12/16 patient started ont Solu-Medrol 40 mg IV q.a.m. (5) Acute on chronic anemia: Code(s): D64.9 - Anemia, unspecified Status: Acute Assessment and Plan: Acute anemia, status post 1 unit of packed RBCs on 12/11 -12/14/2021: Received 1 unit of packed RBCs, patient does have some cold agglutinins and his blood has to come from [facility] -12/11 stool for occult blood is negative - 12/16 hemoglobin 6.8 today. Transfused 1 unit of PRBC -12/17 EGD showed reflux esophagitis and hiatal hernia - 12/19 hemoglobin dropped to 5.9. Transfuse 2 units of PRBC -continue IV PPI. No obvious signs of bleeding -consult hematology - LDH in normal range (6) Acute pancreatitis: Code(s): K85.90 - Acute pancreatitis without necrosis or infection, unspecified Status: Acute Assessment and Plan: Patient with acute pancreatitis on admission with elevated lipase levels -patient was treated with IV fluids, - lipase levels normalized -continue tube feeds as tolerated (7) Thrombocytopenia: Code(s): D69.6 - Thrombocytopenia, unspecified Status: Acute Assessment and Plan: Likely related to alcoholic hepatitis, alcoholism, sepsis -this could be also consumptive secondary to anemia -no acute bleeding at this time noted -continue to monitor -12/14: Transfuse 1 unit of platelets - 12/16 transfuse 2 units of platelets - 12/18 2 units of platelets were transfused for thoracentesis (8) Electrolyte abnormality: Code(s): E87.8 - Other disorders of electrolyte and fluid balance, not elsewhere classified Status: Acu
--- NOTE | 2021-12-19 10:43 | WPDNEUROLOGY ---
Neurology EEG Report General Information Date of Study: 12/18/21 TEST eeg DIAGNOSIS acute metabolic encephalopathy CONDITION OF RECORDING on the ventilator EEG NUMBER [id number] CLINICAL HISTORY background rhythm consists of low to medium voltage to 3 hertz per 2nd delta activity admixed with low-voltage 15 to 18 hertz per 2nd beta 80 no triphasic waves are seen throughout the tracing. Non paroxysmal. Nonfocal. Nonlateralizing. IMPRESSION Abnormal record due to the presence of bihemispheric theta and delta activity with no evidence of any paroxysmal discharge clinical correlation recommended. These abnormalities are suggestive of underlying organic or metabolic encephalopathy or else postictal state
--- NOTE | 2021-12-19 10:46 | PCFNICU ---
ICU Rounding Note: Pt current nutrition is Vital AF 1.2 at 30 ml/hr. Nutrition recommendation: Goal rate at 65 ml/hr. Last recorded weight is 74.5 kg, up from 58.4 kg on admit. Bowel Motility: +Bm reported 12/19. Labs Reviewed:Cr 1.7, BUN 80, GFR 41,Na 136, K 3.3, Hct 17.6,Hgb 5.9 Meds Noted:Solu Medrol, Reglan, Levophed, Lasix, Folic Acid, Thiamine, Protonix, Vancomycin, Colace,Miralax Skin:WNL Additional Notes: Patient remains on mechanical vent. Thoracentesis yesterday removing 620 ml fluid from right side. Today 650 ml from left side. Plans for tube feedings to continue at 30 ml/hr of Vital AF 1.2, goal rate at 65 ml/hr. Free water flush 30 ml q 4 hours. Agree with diet orders. Monitoring: ICU rounds and reassessing every Thursday and Thursday. .
[2021-12-19 11:39] LABS: Glucose Point of Care 120 mg/dl (65-105)
--- NOTE | 2021-12-19 13:13 | WPDGIPROGNO ---
Progress Note: A&P Assessment and Plan (1) Alcoholic hepatitis: Code(s): K70.10 - Alcoholic hepatitis without ascites Status: Acute Assessment and Plan: elevated Maddrey score and he was started on iv steroids prognosis is guarded medical support on tube feeding by OGT at 30 ml/h, on reglan (2) Acute on chronic anemia: Code(s): D64.9 - Anemia, unspecified Status: Acute Assessment and Plan: only esophagitis, no signs of bleeding anemia is multifactorial and noted drop in h/h, getting more blood transfusion agree with hematology consult (3) Acute respiratory failure with hypoxia: Code(s): J96.01 - Acute respiratory failure with hypoxia Status: Acute Assessment and Plan: he is currently intubated, on iv antibiotics for pneumonia (4) Acute metabolic encephalopathy: Code(s): G93.41 - Metabolic encephalopathy Status: Acute Assessment and Plan: still obtunded neurology on board (5) Thrombocytopenia: Code(s): D69.6 - Thrombocytopenia, unspecified Status: Acute Assessment and Plan: s/p platelets transfusion from severe alcoholic hepatitis, sepsis, pancreatitis, etc Subjective Date/time seen: 12/19/21 13:13 Interval history: still intubated and obtunded, h/h drop again and getting blood transfusion, no obvious gib Review of Systems Review of Systems: ROS unobtainable: Yes unobtainable due to endotracheal tube and unobtainable due to mental status Exam Narrative: General: Patient intubated in no distress HEENT:? Pupils are reactive, sclera is icteric, ETT in place Neck:? Supple Respiratory:? coarse breath sounds b/l, adequate air entry Cardiac:? sinus tacycardia, S1 S2 normal Abdomen:? soft, non tender, non distended, hypoactive bowel sounds Extremities:? Upper extremity bruising, no edema, palpable pedal pulses Neuro:? Patient is intubated, off sedation, opens his eyes on sternal rub, withdraws to painful stimuli, resists exam by trying to shut eyes, does not follow commands, PERRL Skin:? Jaundiced Psych:? Unable to assess at this time Objective Data Vital Signs Vital Signs: Vital Signs - 24 hr 12/18/21 14:25 12/18/21 15:16 12/18/21 15:15 Temperature 97.4 F L 97.4 F L Pulse Rate 111 H 112 H 108 H Respiratory Rate 19 19 Blood Pressure 111/79 106/74 Pulse Oximetry 95 96 96 Oxygen Delivery Mechanical Ventilation Fraction of Inspired Oxygen 40 12/18/21 16:00 12/18/21 16:44 12/18/21 17:12 Temperature 97.2 F L 97.2 F L Pulse Rate 109 H 101 H 110 H Respiratory Rate 34 H 20 Blood Pressure 108/77 107/76 Pulse Oximetry 95 96 95 Oxygen Delivery Mechanical Ventilation Fraction of Inspired Oxygen 40 12/18/21 16:00 12/18/21 16:00 12/18/21 14:00 Temperature Pulse Rate 105 H Respiratory Rate Blood Pressure Pulse Oximetry 95 Oxygen Delivery Mechanical Ventilation Fraction of Inspired Oxygen 40 40 12/18/21 16:00 12/18/21 18:00 12/18/21 20:00 Temperature Pulse Rate 110 H 108 H 107 H Respiratory Rate Blood Pressure Pulse Oximetry Oxygen Delivery Fraction of Inspired Oxygen 12/18/21 20:00 12/18/21 20:00 12/18/21 22:00 Temperature Pulse Rate 108 H 108 H Respiratory Rate 20 Blood Pressure Pulse Oximetry 95 Oxygen Delivery Mechanical Ventilation Fraction of Inspired Oxygen 40 40 12/18/21 20:35 12/18/21 20:00 12/18/21 23:55 Temperature 97.7 F Pulse Rate 96 107 H 107 H Respiratory Rate 21 H Blood Pressure 111/80 Pulse Oximetry 98 97 97 Oxygen Delivery Mechanical Ventilation Mechanical Ventilation Fraction of Inspired Oxygen 40 40 12/19/21 00:00 12/19/21 00:00 12/19/21 00:00 Temperature Pulse Rate 103 H 107 H Respiratory Rate 18 Blood Pressure Pulse Oximetry 97 Oxygen Delivery Mechanical Ventilation Fraction of Inspired Oxygen 40 40 12/19/21 00:00 12/19/21 03:10 12/18/21 20:00 Temperature
--- NOTE | 2021-12-19 13:27 | ECG_ITS ---
Measurements Intervals [place] Rate: 134 P: MN: 0 QRS: -62 QRSD: 96 T: 0 QT: 296 QTc: 443 Interpretive Statements LIKELY SINUS TACHYCARDIA, HOWEVER, THERE IS SIGNFICANT BASELINE ARTIFACT LOW QRS VOLTAGE IN EXTREMITY LEADS [QRS DEFLECTION < 0.5 mV IN LIMB LEADS] INCOMPLETE RIGHT BUNDLE BRANCH BLOCK INFERIOR MYOCARDIAL INFARCTION, PROBABLY OLD MODERATE T-WAVE ABNORMALITY, CONSIDER LATERAL ISCHEMIA [-0.1+ mV T WAVE IN I/aVL/V5/V6] COMPARED TO ECG 12/07/2021 07:19:42 T WAVE ABNORMALITY NOW PRESENT Electronically Signed On 12-19-2021 17:38:46 CDT by Musa Hsu M.D.
[2021-12-19] MEDS: METOPROLOL TARTRATE INJ 5 MG/5 ML VIAL IV PUSH (13:40)
--- NOTE | 2021-12-19 14:16 | WPDNEURCNPN ---
Assessment and Plan Assessment and plan (1) Encephalopathy: Code(s): G93.40 - Encephalopathy, unspecified Status: Acute Plan encephalopathic with abnormal EEG due known paroxysmal treatment will be continued as such will follow accordingly Consult date: 12/19/21 HPI: Omega Hardwick is a 61 year old male admitted to the hospital with the complaints of change in the mental status on December 07, 2021 in addition to ongoing history of chronic alcohol abuse, hypertension, and with information that he fell and could not get up and subsequently appeared confused. He remained on the floor subsequent to the 2nd fall when 911 were called by the arrival of EMS his blood sugar was 50 he was confused with dysarthric speech mental status improved D 10 he did not complain of any chest pain his blood pressure was on the lower side for which he receives the fluid he was found to have acute pancreatitis on further evaluation since that patient has had stormy course and neuro consultation has been obtained because of the comatose status an EEG has been done on December 18, 2021 which is abnormal because of the bihemispheric cortical slow activity without any paroxysmal discharge Review of Systems Review of Systems: All systems reviewed & are unremarkable except as noted in HPI and below PMFSH Past Medical History Medical History (Updated 12/17/21 @ 09:28 by Chevy Méndez MD) Abnormal CT scan, esophagus Acute on chronic anemia Alcoholic hepatitis Anemia Elevated liver enzymes Hypertension Neuropathy Family History Family History Father COPD (chronic obstructive pulmonary disease) Mother Heart disease Social History Social History Social History: patient lives at home by himself. He has 1 son and has not . Patient states that his son lives in [place]. Patient has no pets and wishes to be a full code at this time. Patient wants his friend Faraz to be his surrogate. Smoking packs per day: 0.5 Smoking cigarettes per day: 10.0 Years smoked: 30 Smoking pack-years: 15.00 Smoking status: Current every day smoker Tobacco type: cigarettes Alcohol intake: current Drinks per week: 7 Substance use: never Living arrangements: alone Occupation/Education: unemployed Additional occupation/education comments: Used to work at [employer] Gender identity (if verbalized by the patient): Male Spiritual care concerns: No Agree to blood products: Yes Meds Home Medications and Allergies Home Medications Medication Instructions Recorded Confirmed Type amlodipine 10 mg tablet 10 mg PO DAILY 12/07/21 12/07/21 History cholecalciferol (vitamin D3) 50 50 mcg PO DAILY 12/07/21 12/07/21 History mcg (2,000 unit) tablet ferrous sulfate 325 mg (65 mg 325 mg PO DAILY 12/07/21 12/07/21 History iron) tablet gabapentin 100 mg capsule 100 mg PO HS 12/07/21 12/07/21 History mirtazapine 7.5 mg tablet 7.5 mg PO HS 12/07/21 12/07/21 History potassium chloride 20 mEq 20 meq PO DAILY 12/07/21 12/07/21 History tablet,extended release(part/cryst) (Klor-Con M) sucralfate 1 gram tablet 1 g PO BID 12/07/21 12/07/21 History thiamine HCl (vitamin B1) 100 mg 100 mg PO DAILY 12/07/21 12/07/21 History tablet Allergies Allergy/AdvReac Type Severity Reaction Status Date / Time No Known Allergies Allergy Unverified 11/07/12 12:03 Vital Signs Vital Signs - 24 hr 12/18/21 14:25 12/18/21 15:16 12/18/21 15:15 Temperature 36.3 C L 36.3 C L Pulse Rate 111 H 112 H 108 H Respiratory Rate 19 19 Blood Pressure 111/79 106/74 Pulse Oximetry 95 96 96 Oxygen Delivery Mechanical Ventilation Fraction of Inspired Oxygen 40 12/18/21 16:00 12/18/21 16:44 12/18/21 17:12 Temperature 36.2 C L 36.2 C L Pulse Rate 109 H 101 H 110 H Respiratory Rate 34 H 20 Blood Pressure 108/77 107/76 Pulse
[2021-12-19 15:04] LABS: Hematocrit 27.6 % (42.0-52.0); Hemoglobin 9.6 g/dL (14.0-18.0); Immature Platelet Fraction Pct 3.6 % (0.9-11.2); Mean Corpuscular HGB Conc 34.8 g/dl (32-36); Mean Corpuscular Hemoglobin 31.4 pg (26-34); Mean Corpuscular Volume 90.2 fl (80-100); Platelet Count Result 60 k/mm3 (150-375); Red Blood Count 3.06 M/mm3 (4.6-6.20); Red Cell Distribution Width 17.4 % (11.5-14.5); White Blood Count 5.6 K/mm3 (4.5-10.0)
--- NOTE | 2021-12-19 17:47 | PDONCCN ---
HPI - Date of Consult Date/Time: 12/19/21 17:47 Requesting Physician: Erich Larkin MD Primary Care Provider: Dawn ArchibaldMD - Consult Narrative Reason for consult: Normocytic anemia Narrative: Omega Hardwick is a 61 year old male with history of alcohol abuse with admitted to the hospital on December 07, 2021 when he was not able to get up along with mental status changes. He is currently intubated. CT scan done on December 07 showed acute pancreatitis with thickening and enhancement of the distal esophagus suspicious for esophagitis and hepatic steatosis. Patient developed acute respiratory failure with hypoxia and was intubated on December 13. He has been treated for bilateral pneumonia. His hemoglobin dropped to 6.6 on December 11 and 5.9 on December 19. He has received 5 units of packed red blood cell transfusion so far. There was mention of cold agglutinin positive disease infection prevention coordinator note. There is no active bleeding. Review of Systems - Review of Systems All systems reviewed & are unremarkable except as noted in HPI and bel - Neurologic Reports hearing normal [facility] Medical History: Medical History (Last Updated 12/13/21 @ 11:16 by Dez Esquivel MD) Abnormal CT scan, esophagus Acute on chronic anemia Alcoholic hepatitis Anemia Elevated liver enzymes Hypertension Neuropathy Family History: Family History (Last Reviewed 12/07/21 @ 06:34 by CLINT Mosqueda) Father COPD (chronic obstructive pulmonary disease) Mother Heart disease - Social History Social History: Social History (Last Reviewed 12/07/21 @ 06:34 by CLINT Mosqueda) Gender Identity: Gender identity (if verbalized by the patient): Male Alcohol Use: Alcohol intake: current Drinks per week: 7 Substance Use: Substance use: never Others: Spiritual care concerns: No Agree to blood products: Yes Living Arrangements: Living arrangements: alone Oppucation/Education: Occupation/Education: unemployed Smoking Status: Smoking status: Current every day smoker Tobacco type: cigarettes Smoking Pack-years: Smoking packs per day: 0.5 Smoking cigarettes per day: 10.0 Years smoked: 30 Smoking pack-years: 15.00 Exam - Vital Signs Vital Signs - 24 hr 12/18/21 18:00 12/18/21 20:00 12/18/21 20:00 Temperature Pulse Rate 108 H 107 H 108 H Respiratory Rate 20 Blood Pressure Pulse Oximetry 95 Oxygen Delivery Mechanical Ventilation Fraction of Inspired Oxygen 40 12/18/21 20:00 12/18/21 22:00 12/18/21 20:35 Temperature Pulse Rate 108 H 96 Respiratory Rate Blood Pressure Pulse Oximetry 98 Oxygen Delivery Mechanical Ventilation Fraction of Inspired Oxygen 40 40 12/18/21 20:00 12/18/21 23:55 12/19/21 00:00 Temperature 36.5 C Pulse Rate 107 H 107 H 103 H Respiratory Rate 21 H Blood Pressure 111/80 Pulse Oximetry 97 97 Oxygen Delivery Mechanical Ventilation Fraction of Inspired Oxygen 40 12/19/21 00:00 12/19/21 00:00 12/19/21 00:00 Temperature 36.8 C Pulse Rate 107 H 103 H Respiratory Rate 18 18 Blood Pressure 102/70 Pulse Oximetry 97 98 Oxygen Delivery Mechanical Ventilation Fraction of Inspired Oxygen 40 40 12/19/21 03:10 12/18/21 20:00 12/19/21 02:00 Temperature 36.5 C Pulse Rate 106 H 107 H 108 H Respiratory Rate 21 H Blood Pressure 111/80 Pulse Oximetry 96 97 Oxygen Delivery Mechanical Ventilation Fraction of Inspired Oxygen 35 12/19/21 02:00 12/18/21 22:00 12/19/21 04:00 Temperature 36.9 C 36.8 C Pulse Rate 108 H 107 H 104 H Respiratory Rate 18 18 Blood Pressure 107/72 111/81 Pulse Oximetry 96 97 Oxygen Delivery Fraction of Inspired Oxygen 12/19/21 04:00 12/19/21 04:00 12/19/21 04:00 Temperature 37.0 C Pulse Rate 106 H 104 H Respiratory Rate 18 18 Blood Pressure 105/71 Pulse
[2021-12-19 20:27] LABS: Immature Reticulocyte Fraction 1.7 % (3.0-15.9); Reticulocyte Percent 0.52 % (0.7-4.3); Reticulocytes Absolute 0.02 B/L (32.2-175.7)
[2021-12-19 20:35] LABS: Bilirubin Indirect 1.8 mg/dL (0-1.1)
[2021-12-19 20:44] LABS: Lactate Dehydrogenase 243 U/L (120-246)
[2021-12-20] VITALS (13 sets, daily range): BP systolic 96–140; BP diastolic 64–90; PULSE 101–122; RESP 18–35; TEMP 36.7–37.7; O2SAT 83–97
[2021-12-20 02:29] LABS: Glucose Point of Care 120 mg/dl (65-105)
[2021-12-20] MEDS: metroNIDAZOLE 500 MG/ISO 100ML 500 MG/100 ML BAG 100 MG IVPB (04:31)
[2021-12-20 04:53] LABS: Alveolar/Arterial O2 Gradient 85.3 mmHg; Base Excess ABG -4.6 mEq/l (+/-2.0); Carboxyhemoglobin 0.3 % THb (0-2.0); Fractional Inspired Oxygen 30 %; HCO3 ABG 18.6 mEq/l (22.0-26.0); Methemoglobin ABG 0.4 %THb (0-1.5); Oxygen Content ABG 14.9 %vol (16.0-22.0); Oxygen Saturation ABG 97.5 % (95.0-100.0); Oxyhemoglobin 95.8 % THb (90.0-100.0); PCO2 ABG 28.6 mmHg (35.0-45.0); PO2 FiO2 Ratio Arterial Blood 3.17 %; Reduced Hemoglobin 3.5 %THb (0-5.0); pH ABG 7.431 (7.350-7.450)
[2021-12-20 04:54] LABS: Device VENTILATOR; Modified Allen's Test Pass; Site Drawn RIGHT RADIAL
[2021-12-20 04:55] LABS: Arterial Blood Gas PEEP 8 cmH2O; Arterial Blood Gas Tidal Volume 450 ml; Arterial Blood Gas Vent Mode CMV; Arterial Blood Gas Ventilator rate 18 /MIN
[2021-12-20] MEDS: SALINE LOCK FLUSH 10 ML IV PUSH ×3 (05:46→20:59)
[2021-12-20] MEDS: METOCLOPRAMIDE HCL INJ 10 MG/2 ML VIAL IV PUSH (05:47)
[2021-12-20 05:52] LABS: Hematocrit 27.8 % (42.0-52.0); Hemoglobin 9.7 g/dL (14.0-18.0); Immature Platelet Fraction Pct 6.5 % (0.9-11.2); Mean Corpuscular HGB Conc 34.9 g/dl (32-36); Mean Corpuscular Hemoglobin 30.9 pg (26-34); Mean Corpuscular Volume 88.5 fl (80-100); Mean Platelet Volume 10.1 fl (7.4-10.4); Red Blood Count 3.14 M/mm3 (4.6-6.20); Red Cell Distribution Width 17.6 % (11.5-14.5); White Blood Count 6.5 K/mm3 (4.5-10.0)
[2021-12-20 05:57] LABS: Platelet Count Result 36 k/mm3 (150-375)
[2021-12-20 06:02] LABS: Alanine Aminotransferase 24 U/L (6-50); Albumin Level 3.5 g/dL (3.5-5.1); Alkaline Phosphatase 299 U/L (38-126); Anion Gap 20 mmol/L (8-16); Aspartate Amino Transferase 72 U/L (17-59); Bilirubin,Total 13.8 mg/dL (0.2-1.3); Blood Urea Nitrogen 86 mg/dL (9-20); Calcium 9.3 mg/dL (8.4-10.2); Carbon Dioxide 18 mmol/L (22-30); Chloride 106 mmol/L (98-107); Estimated CRCL calculation 40 ml/min; Estimated Glomerular Filt Rate 39; Glucose 99 mg/dL (65-110); Magnesium 2.1 mg/dL (1.6-2.3); Potassium 3.1 mmol/L (3.4-5.0); Sodium 144 mmol/L (137-145)
[2021-12-20] MEDS: FOLIC ACID 1 MG/0.2 ML INJ IV PUSH (08:40)
[2021-12-20] MEDS: THIAMINE HCL 200 MG/2 ML VIAL 100 MG IV PUSH (08:41)
[2021-12-20] MEDS: PANTOPRAZOLE SODIUM IV 40 MG VIAL IV PUSH (08:41)
[2021-12-20] MEDS: methylPREDNISolone SOD SUCC 40 MG VIAL IV PUSH (08:41)
[2021-12-20] MEDS: MINERAL OIL/WHITE PETROLATUM OINTMENT 1 APPLIC EACH EYE (08:42)
[2021-12-20] MEDS: POTASSIUM CHLORIDE INJ 40 MEQ in SODIUM CHLORIDE 0.9% IV 500 ML 130 MEQ IVPB (08:49)
[2021-12-20] MEDS: POTASSIUM CHLORIDE 20 MEQ PACKET (FOR LIQUID) 40 MEQ FEED TUBE (08:51)
[2021-12-20] MEDS: LORazepam INJ (*CRX) 2 MG/ML VIAL IV PUSH ×4 (10:38→23:14)
[2021-12-20] MEDS: MORPHINE SULFATE (*CRX) 2 MG/ML INJ 4 MG IV PUSH ×3 (10:38→23:14)
--- NOTE | 2021-12-20 10:54 | WPDINTPN ---
Progress Note: A&P Assessment and Plan (1) Acute respiratory failure with hypoxia: Code(s): J96.01 - Acute respiratory failure with hypoxia Status: Acute Assessment and Plan: Patient with increasing oxygen requirements due to the course of stay in the hospital -12/13/2021. Patient was intubated for respiratory failure and worsening chest x-ray -currently on CMV mode of ventilation, peep of 8 and 30% FiO2 -chest x-ray and ABGs reviewed -continue Flagyl, cefepime (12/13), discontinued vancomycin 12/17 since cultures have been negative -continue bronchodilators -currently on sedation holiday -his mental status precludes weaning 12/17 CT chest Stable diffuse lung disease, consistent with pulmonary edema versus pneumonia versus acute respiratory distress syndrome (ARDS). Stable moderate-sized pleural effusions. 12/18 ultrasound-guided right thoracentesis -620 mL fluid was removed 12/19 -thoracentesis done on left side and 600 mL fluid was removed Patient poorly responsive to diuretics (2) Septic shock: Code(s): A41.9 - Sepsis, unspecified organism; R65.21 - Severe sepsis with septic shock Status: Acute Assessment and Plan: Patient dropped his pressures post intubation, likely related to positive pressure ventilation, decreased adrenergic surge -off Levophed at this time -monitor urine output -lactic acids elevated could be related to decreased clearance due to liver dysfunction -on antibiotics as above -off IV fluids (3) Pneumonia: Code(s): J18.9 - Pneumonia, unspecified organism Status: Acute Assessment and Plan: Chest x-ray reviewed, likely bilateral pneumonia -12/13/2021 CTA chest and abdomen and pelvis: Did not show any pulmonary embolism, diffuse lung disease consistent with pulmonary edema versus pneumonia, moderate size pleural effusions. Acute interstitial pancreatitis, small volume ascites -on antibiotics as above (4) Alcoholic hepatitis: Code(s): K70.10 - Alcoholic hepatitis without ascites Status: Acute Assessment and Plan: Patient has a history of alcoholic hepatitis -worsening bilirubin, LFTs elevated -12/13/2021: CT abdomen and pelvis showed acute interstitial pancreatitis, small volume ascites -GI following the patient - Amberly's Discriminant Function is 42.8. 12/16 patient started ont Solu-Medrol 40 mg IV q.a.m. (5) Acute on chronic anemia: Code(s): D64.9 - Anemia, unspecified Status: Acute Assessment and Plan: Acute anemia, status post 1 unit of packed RBCs on 12/11 -12/14/2021: Received 1 unit of packed RBCs, patient does have some cold agglutinins and his blood has to come from [facility] -12/11 stool for occult blood is negative - 12/16 hemoglobin 6.8 today. Transfused 1 unit of PRBC -12/17 EGD showed reflux esophagitis and hiatal hernia - 12/19 hemoglobin dropped to 5.9. Transfuse 2 units of PRBC -continue IV PPI. No obvious signs of bleeding -hematology was consulted and workup was ordered - LDH in normal range (6) Acute pancreatitis: Code(s): K85.90 - Acute pancreatitis without necrosis or infection, unspecified Status: Acute Assessment and Plan: Patient with acute pancreatitis on admission with elevated lipase levels -patient was treated with IV fluids, - lipase levels normalized -on tube feeds (7) Thrombocytopenia: Code(s): D69.6 - Thrombocytopenia, unspecified Status: Acute Assessment and Plan: Likely related to alcoholic hepatitis, alcoholism, sepsis -this could be also consumptive secondary to anemia -no acute bleeding at this time noted -continue to monitor -12/14: Transfuse 1 unit of platelets - 12/16 transfuse 2 units of platelets - 12/18 2 units of platelets were transfused for thoracentesis (8) Electrolyte abnormality: Code(s): E87.8 - Other disorders of electrolyte and fluid balance, not elsewhere classified Status: Acute Assessment a
--- NOTE | 2021-12-20 11:34 | PCNFU ---
Nutrition Follow-Up Complete: Inadequate oral intake related to poor appetite as evidence by 40% intake, self reported past 2-3 months unintentional wt loss and clothes not fitting properly Goal: meal intake 75% or great and complete intake of nutritional supplement - Can not meet goal, still on vent New goal: Comfort care Pt current nutrition isVital 1.2 @ 30 ml/h. Nutrition recommendation: Comfort measures per MD. Tube feeding will be discontinued. Last recorded weight is 72.6 kg. Bowel Motility: +2 BM today Labs Reviewed: Hgb 9.7, Hct 27.8, Alb 3.5, Na 144, GFR 39, BUN 86, Creat 1.8 Meds Noted: Sedation with ativan Skin: WNL Additional Notes: Family requested comfort care per MD and TF will be discontinued. Registered Dietitian will sign off when comfort care starts. follow up in 5 days monitor appetite, meal and fluid/nutritional supplement intake, wt and labs
[2021-12-20] MEDS: MORPHINE SULFATE INJ (*CRX) 10 MG/ML AMP 5 MG IV PUSH (11:54)
--- NOTE | 2021-12-20 14:33 | PC.NURSE ---
This patient, Omega Hardwick, was transferred to [facility] on 12/20/21 at 1420. Personal belongings sent with patient. Report given to Patience. Appropriate documentation sent with patient.
--- NOTE | 2021-12-20 17:18 | PM.IMPN ---
Progress Note: A&P Assessment and Plan (1) Acute respiratory failure with hypoxia: Code(s): J96.01 - Acute respiratory failure with hypoxia Status: Acute (2) Septic shock: Code(s): A41.9 - Sepsis, unspecified organism; R65.21 - Severe sepsis with septic shock Status: Acute (3) Pneumonia: Code(s): J18.9 - Pneumonia, unspecified organism Status: Acute (4) Alcoholic hepatitis: Code(s): K70.10 - Alcoholic hepatitis without ascites Status: Acute (5) Acute on chronic anemia: Code(s): D64.9 - Anemia, unspecified Status: Acute (6) Acute pancreatitis: Code(s): K85.90 - Acute pancreatitis without necrosis or infection, unspecified Status: Acute (7) Thrombocytopenia: Code(s): D69.6 - Thrombocytopenia, unspecified Status: Acute (8) Electrolyte abnormality: Code(s): E87.8 - Other disorders of electrolyte and fluid balance, not elsewhere classified Status: Acute (9) Coagulopathy: Code(s): D68.9 - Coagulation defect, unspecified Status: Acute (10) Hypoglycemia: Code(s): E16.2 - Hypoglycemia, unspecified Status: Acute (11) Encephalopathy: Code(s): G93.40 - Encephalopathy, unspecified Status: Acute (12) CARLO (acute kidney injury): Code(s): N17.9 - Acute kidney failure, unspecified Status: Acute Plan ?12/17/21 patient with history of alcohol abuse presented with hypoglycemia, weakness and found to have pulmonary edema, cardiac echo is essentially normal, patient being diuresed, chest x-ray concerning of pneumonia treated with azithromycin and ceftriaxone added Flagyl to cover for anaerobics, patient was seen by GI recommended EGD however patient respiratory and clinically not stable, and GI has postponed EGD, patient appears chronically, unable to provide detail history or ROS. patient presented with alcohol levels of 105 on 12/06 so far he has not any sign of DT, however on 12/13 patient symptoms were worsen, he was obtunded, had labor breathing, was seen by floor cashier, evaluated the patient and recommended patient needs to be placed on ventilator,? transfered? the patient to ICU, floor cashier started patient on Cefepime, vancomycin, and flagyl, patient has septic shock and on levophed will maintain MAP >65mmHg? today patient remains on vent, however pt hgb has dropped and seen by GI and plan is to do EGD today,? spoke with floor cashier started patient on steroid due to alcholic hepatitis and billirubin is rising has elevated Maddrey score, ? appreciate floor cashier, will monitor and follow the patient in ICU.? ? 12/18/21 primary management per floor cashier pt remains intubated transfused multiple U of plts and RBCs GI following prognosis appears poor 12/19/2021 Patient seen by floor cashier 12/20/2021 grave prognosis patient discussed with family today. Aftercare for consideration with Omega had expressed his wishes to be they elected to make him comfort measures only with palliative extubation. Oxygen PRN Pain medicine PRN Anxiolytics PRN Supportive care Subjective Date/time seen: 12/20/21 17:18 patient seen after palliative extubation, he is on room air without distress. He is unresponsive Review of Systems Review of Systems: ROS unobtainable: Yes unobtainable due to medical condition Exam Narrative: GEN: NAD, resting comfortably HEENT: NCAT, MMM Neck: no JVD Heart: S1S2 RRR Lungs: diffuse bilateral crackles Abd: soft, non distended Ext: bilateral upper extremities edematous and weeping Objective Data Vital Signs Vital Signs: Vital Signs - 24 hr 12/19/21 17:22 12/19/21 18:00 12/19/21 18:00 Temperature 97.7 F Pulse Rate 100 98 98 Respiratory Rate 24 H Blood Pressure 121/93 H Pulse Oximetry 93 94 Oxygen Delivery Mechanical Ventilation Fraction of Inspired Oxygen 35 12/19/21 20:00 12/19/21 20:00 12/19/21 20:28 Temperature 98.2 F
[2021-12-21] MEDS: MORPHINE SULFATE (*CRX) 2 MG/ML INJ 4 MG IV PUSH (01:06)
[2021-12-21] MEDS: ATROPINE SULFATE 1% OPHTH SOLN 5 ML BOTTLE SUBLINGUAL (01:10)
[2021-12-21] MEDS: LORazepam INJ (*CRX) 2 MG/ML VIAL IV PUSH (01:24)
--- NOTE | 2021-12-21 03:39 | PC.NURSE ---
Pt. at 02:25 on 12/21/2021.
--- NOTE | 2021-12-21 12:45 | PM.DDS ---
Discharge Summary Date and Time Date of : 12/21/21 Time of : 02:25 Provider Pronounced By: Renita Sánchez Probable Cause of Probable Cause of : respiratory failure Summary Hospital Course: 61-year-old male admitted to the hospital with altered mental status, hypoglycemic blood glucose of 50, hypotensive with blood pressure of 80/68 in metabolic acidosis with acute pancreatitis. He is a known alcoholic actively drinking at the time of admission patient had a complicated clinical course. he went into septic shock Secondary to pneumonia Required admission to ICU for pressor support and intubation. Additionally, he was found to have a GI bleed requiring blood/plt transfusions, however, due to his overall poor clinical status patient was not a candidate for EGD and was treated with conservative care. unfortunately, patient continued to decline despite aggressive medical attention and his family decided to make him comfort measures w palliative extubation. 12/07/2021 patient continued to be borderline hypotensive.? Received several fluid boluses.? He feels weak otherwise no new complaints.? Discussed with nursing staff.? He has a Marks in place with dark yellow urine in the bag.? He presented with confusion and altered mental status and not able to get up and fall.? His blood sugar was noted to be low in 50s upon EMS arrival which improved with some D10.? Denies chest pain or shortness of breath.? He denies any nausea vomiting abdominal pain.? He was noted to have elevated alcohol level on arrival to the ED as well. ?:? Doing well blood presents fluid.? Tachycardia resolved.? Brief labs reviewed during new complaints.? Abdomen is still sore.? On clear liquid diet he does not have much appetite. 12/09/2021: Overnight events noted.? Short of breath.? Requiring oxygen.? He denies any chest pain.? He also reports he is coughing more.? Checks x-ray was reviewed.? He remains on clear liquid diet.? He reports soreness in his abdomen. 12/10/2021: overnight events noted. he got confused deliriuous overnight. required haldol. he is currently alert and oriented but has conversational dyspnea noted. cxr with worsening congestion. Discussed with delivery engineer 12/11/2021 interval history:??patient with history of alcohol abuse presented with hypoglycemia, weakness and found to have pulmonary edema, cardiac echo is essentially normal, patient being diuresed, chest x-ray concerning of pneumonia treated with azithromycin and ceftriaxone wiil add Flagyl to cover for anaerobics, patient was seen by GI recommended EGD however patient respiratory and clinically not stable, and GI has postponed EGD, patient appears chronically, unable to provide detail history or ROS. will continue to diuresed and PT and OT to patint out of bed and in the chair,? ? 12/12/2021 interval history:??patient with history of alcohol abuse presented with hypoglycemia, weakness and found to have pulmonary edema, cardiac echo is essentially normal, patient being diuresed, chest x-ray concerning of pneumonia treated with azithromycin and ceftriaxone added Flagyl to cover for anaerobics, patient was seen by GI recommended EGD however patient respiratory and clinically not stable, and GI has postponed EGD, patient appears chronically, unable to provide detail history or ROS. patient presented with alcohol levels of 105 on 12/06 so far he has not any sign of DT,? will continue to diuresed and PT and OT to patient out of bed and in the chair,? ? ?12/13/2021 interval history:??patient with history of alcohol abuse presented with hypoglycemia, weakness and found to have pulmonary edema, cardiac echo is essentially normal, patient being diuresed, chest x-ray concerning of pneumonia treated with azithromycin and ceftriaxone added Flagyl to cover for anaerobics, patient was seen by GI recommended EGD however patient respiratory and clinically not stable, and GI has postponed EGD, tristin
[2021-12-22 20:11] LABS: Glucose Pleural Fluid 127 mg/dL; LDH Pleural Fluid 191 U/L; Total Protein Pleural Fluid 3.1 g/dL
[2021-12-23 14:21] LABS: Reference Lab Test Result 7.8
[2021-12-23 15:09] LABS: ADAMTS-13 Activity 0.43 IU/mL (0.68-1.63)
[2021-12-26 13:53] LABS: Reference Lab Test Result None Detected
== END 2021-12-21 02:25 | disposition expired | DRG 720 ==
LOC: ANHED 12-07 02:03 → ANHIMU 12-07 02:29 → ANHICU 12-13 11:07 → ANH3MEDSUR 12-20 14:35
PROVIDERS: Emergency Medicine; Family Medicine; Internal Medicine; Internal Medicine Gastroenterology; Internal Medicine Hematology & Oncology; Nurse Practitioner; Physician Assistant; Admitting Provider Internal Medicine; Emergency Provider Emergency Medicine; PCP Internal Medicine Gastroenterology; Visit Provider Hospitalist
PROC: 0DJ08ZZ Inspection of Upper Intestinal Tract, Via Natural or Artificial Opening Endoscopic (ICD-10-PCS; CPT 43235; principal; 2021-12-17 15:00)
DX: A41.9 Sepsis, unspecified organism (principal); J96.01 Acute respiratory failure with hypoxia; R65.21 Severe sepsis with septic shock; J18.9 Pneumonia, unspecified organism; J90 Pleural effusion, not elsewhere classified; G93.41 Metabolic encephalopathy; N17.9 Acute kidney failure, unspecified; E87.20 Acidosis, unspecified; D69.6 Thrombocytopenia, unspecified; K70.10 Alcoholic hepatitis without ascites; F10.139 Alcohol abuse with withdrawal, unspecified; Y90.5 Blood alcohol level of 100-119 mg/100 ml; K85.80 Other acute pancreatitis without necrosis or infection; E87.1 Hypo-osmolality and hyponatremia; Z20.822 Contact with and (suspected) exposure to COVID-19; Z51.5 Encounter for palliative care; D68.9 Coagulation defect, unspecified; K21.00 Gastro-esophageal reflux disease with esophagitis, without bleeding; K44.9 Diaphragmatic hernia without obstruction or gangrene; E83.42 Hypomagnesemia; I10 Essential (primary) hypertension; F17.210 Nicotine dependence, cigarettes, uncomplicated; G62.9 Polyneuropathy, unspecified; E16.2 Hypoglycemia, unspecified; R74.8 Abnormal levels of other serum enzymes; E87.6 Hypokalemia; D64.9 Anemia, unspecified; R93.3 Abnormal findings on diagnostic imaging of other parts of digestive tract; W19.XXXA Unspecified fall, initial encounter; Z79.899 Other long term (current) drug therapy
CPT/HCPCS: 31500; 32555; 36415; 36430; 36569; 36600; 70450; 71045; 71250; 71275; 72125; 74176; 74177; 76705; 80048; 80053; 80202; 80307; 81001; 82140; 82274; 82375; 82550; 82805; 82945; 82948; 83050; 83605; 83615; 83690; 83735; 83880; 83986; 84100; 84132; 84157; 84425; 84443; 84484; 85025; 85027; 85046; 85049; 85055; 85384; 85397; 85610; 85730; 86140; 86157; 86850; 86880; 86900; 86901; 86920; 87040; 87070; 87075; 87077; 87086; 87186; 87205; 87449; 87899; 89051; 93005; 93306; 94002; 94003; 94640; 95816; 96360; 96361; 96365; 96366; 96367; 96368; 97161; 97166; 99285; A9270; C1751; C9113; C9803; G0378; G0379; J0456; J0692; J0696; J1630; J1940; J2060; J2250; J2270; J2405; J2704; J2765; J2920; J3010; J3370; J3411; J3430; J3475; J3480; J7030; J7040; J7050; J7070; J7120; J7121; P9016; P9034; P9045; P9047; Q9967; U0003; U0005